=== PATIENT | male | born 1945 | race Caucasian/White ===

== ENCOUNTER 2018-12-07 06:05 | Inpatient (IN) ==
[~2018-12-07 06:05] MED LIST: ceFAZolin 1,000 MG, Sodium Chloride IRRigation 1,000 ML IR ONE
[2018-12-07] MEDS ORDERED: CeFAZolin Syr 2,000MG/20 ML 2,000 MG/20 ML SYRINGE IVPB ONE (06:26)
[2018-12-07] MEDS ORDERED: Ringers Solution, Lactated 1,000 ML IVC SCH ×2 (06:30→06:45)
[2018-12-07] MEDS ORDERED: *HR* Propofol 200 MG/20 ML VIAL IVP ONE ×2 (06:49→16:03)
[2018-12-07] MEDS ORDERED: *HR* FentaNYL (PF) 100 MCG/2 ML VIAL ONE (06:49)
[2018-12-07] MEDS ORDERED: Lidocaine -MPF 4% 5 ML AMPUL ONE (06:50)
[2018-12-07] MEDS ORDERED: EPINEPHrine 1 MG/ML VIAL ONE (06:50)
[2018-12-07] MEDS ORDERED: Dexamethasone 4 MG/ML VIAL ONE ×2 (06:50→14:29)
[2018-12-07] MEDS ORDERED: Ondansetron 4 MG/2 ML VIAL ONE ×2 (06:50→14:29)
[2018-12-07] MEDS ORDERED: Lidocaine -MPF 2% 2 ML VIAL ONE ×2 (06:50→07:06)
[2018-12-07] MEDS ORDERED: *HR* Succinylcholine 200 MG/10 ML VIAL IVP ONE (06:50)
[2018-12-07] MEDS ORDERED: *HR* Heparin 5,000 UNIT/ML VIAL ONE ×2 (06:50→10:48)
[2018-12-07] MEDS ORDERED: Heparin 1,000 UNITS/500 mL 500 ML ONE (07:03)
[2018-12-07] MEDS ORDERED: *HR* Phenylephrine 10 MG/ML VIAL ONE ×4 (07:04→14:05)
[2018-12-07] MEDS ORDERED: Acetaminophen IV 1,000 MG/100 ML INFUS..BTL IVPB ONE (07:07)
--- NOTE | 2018-12-07 07:07 | Anesthesia Evaluation PreOp ---
Date of Encounter: 12/07/18 Time of Encounter: 07:05 - Past History Planned Operation: Aortobifemoral bypass graft Cardiac History: HTN, Hyperlipidemia, Cardiac Surgery (CABG x 3 1999), Other (PAD) Pulmonary History: Smoker, Pack/yr (20) NATURAL DEVELOPER History: Denies Any Significant HX Other Medical History: Diabetes Type II Anesthesia History: No Prior Anesthetic Complications, Past Anesthesia (CABG x3) Medications and Allergies Allergy/AdvReac Type Severity Reaction Status Date / Time gabapentin AdvReac Abdominal Verified 12/07/18 06:26 Pain simvastatin AdvReac Abdominal Verified 12/07/18 06:26 Pain - Meds/Allergy Pre-op Review Medications Reviewed: Yes Allergies Reviewed: Yes Beta Blockers on Current Med List: No Anesthesia Results - Labs Laboratory Tests 12/02/18 12/02/18 12/02/18 13:07 13:07 13:07 WBC 4.8 Hgb 13.2 Hct 40.5 Plt Count 178 PT INR APTT Sodium 141 Potassium 3.8 Chloride 100 Carbon Dioxide 31 H BUN 14 Creatinine 0.80 Glucose 136 H Est Mean Plasma Glucose 166 Hemoglobin A1c 7.4 H 12/02/18 13:07 WBC Hgb Hct Plt Count PT 11.4 INR 1.0 APTT 29.5 Sodium Potassium Chloride Carbon Dioxide BUN Creatinine Glucose Est Mean Plasma Glucose Hemoglobin A1c - Imaging EKG: report reviewed ( Interpretive Statements SINUS RHYTHM WITH OCCASIONAL VENTRICULAR PREMATURE COMPLEXES LEFT VENTRICULAR HYPERTROPHY AND ST-T CHANGE Electronically Signed On 12-05-2018 18:10:55 EDT by Magdi Laurent) Anesthesia Exam O2 Sat Height 1.68 m Weight 63.957 kg O2 Sat by Pulse Oximetry 93 Vital Signs Temp Pulse Resp BP Pulse Ox 97.9 F 62 18 119/74 93 12/07/18 06:55 12/07/18 06:55 12/07/18 06:55 12/07/18 06:55 12/07/18 06:55 Weight: 63kg NPO (# of Hours): >8 - HEENT Pupil (Motor): Pupils equal, EOMI Mallampati: I Teeth: Edentulous Oral Opening: Greater than 3 - NATURAL DEVELOPER LOC: Oriented NATURAL DEVELOPER Motor: Normal RUE, Normal LUE, Normal RLE, Normal LLE, Normal Face NATURAL DEVELOPER Sensory: Normal: RUE, LUE, RLE, LLE, Face - Cardiac Rhythm: Regular - Pulmonary Breath Sounds: bilateral Clear Anesthesia Assess/Plan ASA Score: 3 Level of consciousness: Cooperative Anesthetic Plan: General Monitoring Plan: Standard Monitors, A-Line Recovery Plan: PACU
[2018-12-07] MEDS ORDERED: NiCARdipine 2.5 MG/10 ML Syringe IVPB ONE (07:11)
[2018-12-07] MEDS ORDERED: Albuterol 2.5 MG/3 ML NEBULIZER IH ONE (07:16)
[2018-12-07] MEDS ORDERED: *HR* Remifentanil 2 MG VIAL IVP ONE (07:17)
[2018-12-07] MEDS ORDERED: Heparin 1,000 UNITS/500 mL 1,000 ML ONE (07:20)
--- NOTE | 2018-12-07 07:29 | History & Physical Report ---
Date of Encounter: 12/07/18 Time of Encounter: 07:25 24 Hour HP Update - Instructions Instructions: If the History and Physical is less than 30 days old and was completed prior to A.M. admission and or procedure and has NOT been updated on calendar day of procedure please complete this update prior to performing procedure. - Update Patient reports changes in Medical Condition: No Changes in examination, assessment, or condition: No Changes in Medication: No Preop tests/diagnostics Reviewed: Yes Surgery Remains Indicated: Yes Consent for Planned Operative Procedure(s) Verified: Yes - Pre-Operative Checklist Preoperative Checklist Indicated: Yes Prophylactic Antibiotic Ordered: Yes Home Medications Include Beta Serge: No Beta Serge Taken Today (Day of Surgery): No Beta Serge Taken Yesterday (Day Prior to Surgery): No Is VTE Prophylaxis Indicated?: Yes
[2018-12-07] MEDS ORDERED: *HR* FentaNYL (PF) 100 MCG/2 ML VIAL IVP PRN (07:38)
[2018-12-07] MEDS ORDERED: *HR* Promethazine 25 MG/ML VIAL IVP PRN (07:38)
[2018-12-07] MEDS ORDERED: *HR* Meperidine 25 MG/ML SYRINGE IVP PRN (07:38)
[2018-12-07] MEDS ORDERED: Ondansetron 4 MG/2 ML VIAL IVP ONE (07:38)
[2018-12-07] MEDS ORDERED: *HR* Rocuronium Bromide 50 MG/5 ML VIAL ONE ×2 (09:58→12:24)
[2018-12-07 10:35] LABS: Basophils % 0.2 %; Eosinophils # 0.1 K/mcL (0.0-0.6); Eosinophils % 1.1 %; Hematocrit 38.2 % (37.5-50.1); Immature Granulocytes % 0.4 % (0-4); Lymphocytes # 1.4 K/mcL (0.6-4.6); Lymphocytes % 13.8 %; Mean Corpuscular Hemoglobin 31.1 pg (28.0-33.3); Mean Corpuscular Volume 91.4 fL (83.0-100.0); Mean Platelet Volume 9.8 fL (9.4-12.4); Monocytes # 0.4 K/mcL (0.0-1.3); Monocytes % 3.7 %; Neutrophils # 8.4 K/mcL (1.6-8.9); Platelet Count 178 K/mcL (140-400); Red Blood Count 4.18 M/mcL (4.19-5.50); Red Cell Distribution Width 11.5 % (11.5-14.5); Segmented Neutrophils % 80.8 %
[2018-12-07 10:38] LABS: White Blood Count 10.4 K/mcL (4.3-11.1)
[2018-12-07 10:56] LABS: BUN/Creatinine Ratio 18 (6-26); Blood Urea Nitrogen 14 mg/dL (8-23); Calcium 9.3 mg/dL (8.6-10.3); Carbon Dioxide 25 mEq/L (23-29); Chloride 102 mEq/L (98-107); Glucose 249 mg/dL (70-105); Osmolality,Calculated 295 (280-300); Potassium 3.8 mEq/L (3.5-5.1); Sodium 138 mEq/L (136-145); eGFR For African Americans > 60 (> 60); eGFR For Non-African Americans > 60 (> 60)
[2018-12-07] MEDS ORDERED: *HR* PHENYLEPHRINE 1,000 MCG/10 ML SYRINGE IVP ONE ×5 (11:56→16:22)
[2018-12-07] MEDS ORDERED: EPHEDrine 50 MG/ML VIAL ONE (12:18)
[2018-12-07] MEDS ORDERED: Esmolol 100 MG/10 ML VIAL IVP ONE (12:24)
[2018-12-07] MEDS ORDERED: *HR* Magnesium Sulfate 1 GM/2 ML VIAL ONE (12:30)
[2018-12-07] MEDS ORDERED: Calcium Gluconate 1,000 MG/10 ML VIAL ONE (12:31)
[2018-12-07] MEDS ORDERED: *HR* Vasopressin 20 UNIT/ML VIAL ONE (12:47)
[2018-12-07 14:03] LABS: ABG Base Excess -14 mEq/L (-2 to 3); ABG Chloride 108 mEq/L (98-107); ABG Glucose 468 mg/dL (60-95); ABG HCO3 14 mEq/L (21-27); ABG Ionized Calcium 1.21 mmol/L (1.15-1.35); ABG Oxygen Saturation 100 % (95-98); ABG PCO2 40 mmHg (35-45); ABG PH 7.16 pH Units (7.32-7.45); ABG PO2 270 mmHg (85-104); ABG TCO2 16 mEq/L (20-26)
[2018-12-07] MEDS ORDERED: Sodium Bicarbonate 50 MEQ/50 ML VIAL ONE ×2 (14:05→15:55)
[2018-12-07] MEDS ORDERED: Insulin Regular, Human 100 UNIT/ML ONE (14:45)
[2018-12-07] MEDS ORDERED: 0.9 % Sodium Chloride Mini Bag 100 ML ONE (14:49)
[2018-12-07] MEDS ORDERED: *HR* HYDROMORPHONE 2 MG/ML VIAL ONE ×2 (15:07→15:41)
[2018-12-07 15:37] LABS: ABG Base Excess -13 mEq/L (-2 to 3); ABG Chloride 109 mEq/L (98-107); ABG Glucose 308 mg/dL (60-95); ABG HCO3 16 mEq/L (21-27); ABG Oxygen Saturation 100 % (95-98); ABG PCO2 42 mmHg (35-45); ABG PH 7.18 pH Units (7.32-7.45); ABG PO2 241 mmHg (85-104); ABG TCO2 17 mEq/L (20-26)
--- NOTE | 2018-12-07 15:56 | Operative Note ---
Date of procedure: 12/07/18 Pre-op diagnosis: AAA/Bilat Com Iliac Aneurysms/Bilat Ext Iliac/ONLINE JOURNALIST/PFA/SFA occlusive disease Post-op diagnosis: same Procedure: repair of AAA and bilat iliac aneurysms with aorto-biprofunda bypass with 12 x 6 mm graft bilat ONLINE JOURNALIST and PFA endarterectomy Repair internal hernia Complications: 0 Anesthesia: GETA Surgeon: Severo Winston Co-Surgeon: Dejon Perez Was there an legal assistant present: No Estimated blood loss (cc): 1,500 (1800 ml returned via cell saver, 2 units PRBC's given in OR) Specimen: 0 Condition: stable Disposition: ICU Procedure in Detail: History Pranay Olguin is a 73-year-old white male who had been seen in the outpatient vascular surgery clinic for bilateral lower extremity pain on referral from the [place]. The patient states that he's been having symptoms for at least 2 years though his states this is been going on longer than that. He states that he is only able to walk a distance of about 50 feet and needs to stop because of bilateral lower extremity pain. Noninvasive testing revealed an ankle-brachial index of approximately 0.[address] angiogram was performed which demonstrated an abdominal aortic aneurysm and bilateral common iliac artery aneurysms. The patient has severe and diffuse occlusive disease affecting the external iliac, common femoral, profunda femoris, and superficial femoral arteries bilaterally. The patient is aware that the amount of disease present will require more than one operation in order to revascularize but that the initial operation needs to focus on his inflow. He now comes for that operation. Procedure After informed consent was obtained the patient was taken to the operating room. An arterial line was placed. Patient was then intubated and general endotracheal anesthesia was established. The abdomen groin and upper thighs were sterilely prepped and draped. Nasogastric tube was placed. A timeout protocol was observed. A 2 team surgical approach was utilized for this patient. This was done because of the patient's comorbid conditions that include hypertension and ischemic heart disease. This was also done in order to facilitate complex intraoperative decision-making as well as complex intraoperative technical maneuvers and to expedite his operative care and minimize surgical and anesthetic time. The groin incisions were made first and these were placed in a vertical orientation because of the known need for endarterectomy. Because of his superficial femoral artery disease and anticipation that he will require future bilateral femoral-popliteal bypass grafts the endarterectomy today we'll focus on his common femoral and profunda femoris arteries so that the patient would have some form of improved runoff to the lower extremities. An extensive dissection was then undertaken of both profunda femoris arteries so that they could be widely exposed and controlled distally. The vessels were found to be particularly calcific and rigid. There is no palpable pulse present though the arteries were seen to vibrate corresponding to the cardiac cycle. After appropriate control was obtained a tunnel was created retrograde into the retroperitoneal space. The incisions were then packed with antibiotic-soaked gauze. Attention was then directed to the abdomen. A vertical midline incision was used. This was dissected down to and through the fascia. The peritoneal membrane was identified and opened gently. Patient was found to have a somewhat distended sigmoid colon. On further inspection it was found that the patient actually had an internal hernia. There is large portion of the jejunum appeared to be rotated and displaced into the left upper quadrant and posterior to the inferior mesenteric vein. This area was then dissected and the internal hernia was released and reduced. The bowel was intact and no signs of bowel injury or bowel ischemia. The arteries were markedly calcified and rigid. Dissection was then conducted after the bowel was reflected into the right hemiabdomen. The ret roperitoneum was opened. Dissection was carried from the renal arteries and left renal vein distally to the iliac bifurcation. Selective control was then obtained of the internal and external iliac arteries bilaterally. The abdominal aortic aneurysm and bilateral common iliac artery aneurysms were identified. The right common iliac artery aneurysm is larger than the left. The iliac vessels were diffusely affected by atherosclerosis with a dense calcifications and rigidity. 5000 units of heparin were then administered intravenously. After 3 minute delay the vessels were clamped with the external and internal iliac arteries clamped first. Then the cross-clamp was placed immediately below the renal arteries. A longitudinal arteriotomy was then made on the aorta. Dense calcifications were present here as well as chronic thrombus in the aneurysms. These were removed. The proximal part of the aorta was then carefully inspected and a back bleeding lumbar was suture ligated. The orifice of the distal aorta was then carefully endarterectomized. The clamp was briefly removed in order to flush and remove any residual debris. With this done a 12 x 6 mm graft was selected. The proximal anastomosis was then performed using 3-0 Prolene suture. After cross clamping the graft distally the proximal anastomosis was then inspected for hemostasis. With this assured the graft limbs were then passed through the previously created tunnels into the groin. It should be noted that the common iliac arteries were opened and the plaque removed so that the graft could pass directly through the aneurysm sac. A longitudinal arteriotomy was then made on the mid to distal portion of the bilateral common iliac artery with extension of the arteriotomy onto the profunda femoris artery for a distance of greater than 3 cm to the area of the primary bifurcation of the profunda. The plaque encountered here was extraordinarily dense. This required a formal endarterectomy of both the common femoral and the profunda femoris artery area with this done and appropriate lumen could then be identified. A small amount of backbleeding was noted from the distal profunda bilaterally. There was no retrograde bleeding from the superficial femoral artery. There was a small amount only of bleeding antegrade through the common femoral artery. The distal anastomoses were then created in an end to side fashion and sewn onto the distal common femoral artery and formally onto the profundus so that the bypass graft was an aorto bi-profunda bypass graft. After appropriate backbleeding and flushing the grafts were open. First to the left leg and then to the right leg. The patient did demonstrate some hemodynamic changes with opening the first leg and so therefore the second leg opening was delayed until appropriate resuscitation was achieved. After this was done both grafts limbs were opened. There was an excellent pulse through the graft and Doppler signals were identified into the profunda femoris artery. The wounds were then irrigated and hemostasis achieved. Attention was then directed back to the abdomen. The abdomen was irrigated with warm antibiotic solution. The retroperitoneum was inspected for any residual bleeding. The aneurysm sac was then closed around the synthetic graft. This was also closed over the right limb of the graft. On the left side the retroperitoneum had been opened in a separate distal location in order to secure the distal ligation. It should be noted that the distal aspect of the common iliac artery was divided and endarterectomized bilaterally. It was then oversewn so that there would be no retrograde bleeding into the iliac aneurysms and so therefore the bilateral common iliac artery aneurysms were defunctionalized. The retroperitoneum was then reapproximated both in the left pelvis and in the midportion of the abdomen. The fascia was closed with looped PDS suture. The deep subcutaneous tissue was closed with a running 3-0 Vicryl and the skin edges were approximated with 4-0 Vicryl. The groin incisions were irrigated and they were inspected for hemostasis. Marcaine was infiltrated into the wound edges. The wounds were then closed in layers using absorbable suture. Dry sterile dressing was then applied to all the incisions. The patient demonstrated metabolic acidosis on intraoperative blood gases and so the patient was judged to not be ready for extubation at this time. Therefore the patient will be taken to the intensive care unit intubated and will have further resuscitation and extubation later. The patient had approximately 3000 mL of fluid collected with the Cell Saver device. 1800 mL were returned to the patient. Also 2 units of banked red blood cells were administered intraoperatively. There were no intraoperative complications. The patient tolerated the procedure well. The sponge count and needle counts were correct.
[2018-12-07] MEDS ORDERED: *HR* Midazolam HCl 5 MG/5 ML VIAL IVP ONE (16:02)
[2018-12-07 16:17] LABS: ABG Base Excess -8 mEq/L (-2 to 3); ABG Chloride 105 mEq/L (98-107); ABG Glucose 256 mg/dL (60-95); ABG HCO3 22 mEq/L (21-27); ABG Ionized Calcium 1.23 mmol/L (1.15-1.35); ABG Oxygen Saturation 100 % (95-98); ABG PCO2 66 mmHg (35-45); ABG PH 7.13 pH Units (7.32-7.45); ABG PO2 433 mmHg (85-104); ABG TCO2 24 mEq/L (20-26)
[2018-12-07] MEDS ORDERED: Artificial Tears SOLN 15 ML BOTTLE BOTH EYES PRN (16:55)
[2018-12-07] MEDS ORDERED: Naloxone 0.4 MG/ML INJ IVP PRN (16:56)
[2018-12-07] MEDS ORDERED: Ondansetron 4 MG/2 ML VIAL IVP PRN (16:56)
[2018-12-07] MEDS ORDERED: D5% in Water 1,000 ML IVC PRN (17:00)
[2018-12-07] MEDS ORDERED: Dextrose Gel 15 GM/37.5 ML TUBE PO PRN ×2 (17:00)
[2018-12-07] MEDS ORDERED: *HR* Dextrose 50 % in Water (Syg) 50 ML SYRINGE IVP PRN (17:00)
[2018-12-07] MEDS ORDERED: FentaNYL (PF) 1,000 MCG in 0.9 % Sodium Chloride 80 ML IVC SCH (17:00)
--- NOTE | 2018-12-07 17:02 | Pulmonology Consult Note ---
<Meli Dupree R - Last Filed: 12/07/18 18:26> Date of Encounter: 12/07/18 Time of Encounter: 17:01 Assessment and Plan (1) Metabolic acidosis Current Visit: Yes Status: Acute Pt became acidotic during surgery likely secondary to poor perfusion 2 units PRBCs, 6.5L LR, and 3 amps of bicarb have been given Most recent ABG demonstrates acidosis at 7.13, pCO2 66, pO2 433 and HCO3 of 22 Lactate >10 Pt to remain intubated following surgery until acidosis corrects Will start the patient on a bicarb drip at 150mls/hr after the 7th liter of LR is finished transfusing Pt hemodynamically stable at this point Continue to closely monitor Repeat ABG at 1730 - 7.27, 46, 111, 21 with base excess correcting to -6 (2) S/P aortobifemoral bypass surgery Current Visit: Yes Status: Acute Performed by Dr. Winston Reported pt lost estimated 3L of blood and is overall volume depleted Given 6.5L of LR throughout surgery Transfused 2 units PRBCs Continue to monitor for signs of hemodilution and blood loss anemia CXR s/p surgery shows ETT and NG tube in correct places without acute abnormalities of the cardiopulmonary system (3) Diabetes mellitus Current Visit: Yes Status: Acute Pt normally takes metformin at home Pt hyperglycemic during surgery requiring 16U of insulin Q6H Accu-cheks with low dose SSI Qualifiers: Diabetes mellitus type: type 2 Diabetes mellitus terminologist insulin use: without halfway use Diabetes mellitus complication status: with other specified complication Qualified Code(s): E11.69 - Type 2 diabetes mellitus with other specified complication (4) HTN (hypertension) Current Visit: Yes Status: Acute Pt normotensive s/p surgery Continue to monitor and treat as needed Qualifiers: Hypertension type: essential hypertension Qualified Code(s): I10 - Essential (primary) hypertension (5) Hypokalemia Current Visit: Yes Status: Acute Pt most recent potassium 3.2 Likely secondary to volume depletion Replete as needed and continue to monitor (6) DVT prophylaxis Current Visit: Yes Status: Acute EPCDs History of Present Illness Consult date: 12/07/18 Requesting physician: Severo Winston Reason for consult: other (vent management) History of present illness: 73 yo male with PMHx of CAD with CABG in 1999, DM, PAD, HTN, HLD presents to the ICU after an aortobifemoral bypass graft performed by Dr. Winston. During the surgery the patient was stated to have lost approximately 3L of blood, he has been transfused 6.5 L of lactated Ringer's, 2 units of packed red blood cells, and 3 amps of bicarbonate. The patient remained acidotic after surgery and the decision was made to keep him intubated until his acidosis corrects. There were no significant complications from the surgery other than the expected blood loss. Patient's most recent blood gas demonstrated a pH of 7.13, CO2 66, PO2 of 433 and bicarbonate of 22 with a base excess of 8. Patient's blood sugars did increase during surgery up to 468 but a total of 6 units of insulin were given and his most recent blood glucose was 256. Patient is hemodynamically stable at this time with blood pressures 130/77, heart rate sinus rhythm, respirations 12/m with a tidal volume of 500. He did continue to make urine throughout the surgery producing approximately 350 mL throughout the duration of the surgery. The patient is full code. Dr. Winston has consulted the pulmonology team for further management of the patient's acidosis and his ventilator management. Past Med Surg Social Fam HX - Past Medical History Source: old records reviewed Medical history: diabetes, hyperlipidemia, hypertension Additional medical history: CVD. ischemic heart disease Psychiatric history: no psych history - Past Surgical History Surgical History: coronary bypass (CABG) - Social History Smoking Status: Former smoker Smokeless Tobacco Status: No Alcohol use: none Drug use: none Medications and Allergies Amlodipine Besylate 2.5 mg PO QAM 12/07/18 [History] Ascorbic Acid [Vitamin C] 500 mg PO QAM 12/07/18 [History] Cranberry Conc/C/Bacill Coag [Azo Cranberry Tablet] 1 tab PO QAM 12/07/18 [History] Docusate Sodium [Dulcolax Stool Softener] 100 mg PO BID 12/07/18 [History] Ferrous Sulfate [Iron] 325 mg PO TID 12/07/18 [History] Lactobacillus Combination No.8 [Adult Probiotic] 1 cap PO DAILY 12/07/18 [History] Lisinopril [Zestril] 20 mg PO QAM 12/07/18 [History] Lovastatin 80 mg PO QPM 12/07/18 [History] Metformin HCl [Glucophage] 1,000 mg PO BID 12/07/18 [History] Methocarbamol [Robaxin] 500 mg PO TID PRN 12/07/18 [History] Morphine Sulfate Immed Rel [Morphine Sulfate] 15 mg PO TID PRN 12/07/18 [History] Vitamin B Complex [Balanced B-50] 1 tab PO QAM 12/07/18 [History] hydroCHLOROthiazide [Hydrochlorothiazide] 12.5 mg PO QAM 12/07/18 [History] Allergy/AdvReac Type Severity Reaction Status Date / Time gabapentin AdvReac Abdominal Verified 12/07/18 06:26 Pain simvastatin AdvReac Abdominal Verified 12/07/18 06:26 Pain ROS unobtainable: due to endotracheal tube All Systems: The remainder of the systems were reviewed and are negative Physical Examination General appearance: no acute distress, asleep Eyes: nonicteric ENT: other (Intubated) Effort: normal Auscultation: bilateral: clear Cardiovascular: regular rate and rhythm Gastrointestinal: soft, non-tender, non-distended Integumentary: normal Extremities: no edema, pink and warm pupils equal and round Results - Laboratory Findings CBC and BMP: 12/07/18 17:15 12/07/18 17:15 ABG ABG pH 7.13 pH Units (7.32-7.45) L* 12/07/18 16:10 ABG pCO2 66 mmHg (35-45) H D 12/07/18 16:10 ABG pO2 433 mmHg (85-104) H D 12/07/18 16:10 ABG O2 Saturation 100 % (95-98) H 12/07/18 16:10 Abnormal lab findings: Abnormal lab results RBC 4.18 M/mcL (4.19-5.50) L 12/07/18 10:17 ABG pH 7.13 pH Units (7.32-7.45) L* 12/07/18 16:10 ABG pCO2 66 mmHg (35-45) H D 12/07/18 16:10 ABG pO2 433 mmHg (85-104) H D 12/07/18 16:10 ABG HCO3 16 mEq/L (21-27) L 12/07/18 15:28 ABG Total CO2 17 mEq/L (20-26) L 12/07/18 15:28 ABG O2 Saturation 100 % (95-98) H 12/07/18 16:10 ABG Base Excess -8 mEq/L (-2 to 3) L 12/07/18 16:10 ABG Hematocrit 31.0 % (37.5-50.1) L 12/07/18 16:10 ABG Chloride 109 mEq/L (98-107) H 12/07/18 15:28 Potassium 3.2 mEq/L (3.5-5.3) L 12/07/18 16:10 Glucose 256 mg/dL (60-95) H 12/07/18 16:10 Glucose 249 mg/dL (70-105) H 12/07/18 10:17 POC Glucose 135 mg/dL (70-99) H 12/07/18 06:54 Arterial Blood Ionized Calcium 1.10 mmol/L (1.15-1.35) L 12/07/18 15:28 Crossmatch See Detail 12/07/18 08:42 - Clinical Findings Intake & Output: Intake & Output 12/07/18 12/07/18 12/07/18 07:59 15:59 23:59 Intake Total Output Total 1850 / 1850 Balance 20 / -1830 -1850 / -1830 Weight 63.957 kg Consult Discharge Plan - Plan Referrals: [place],PCP [Primary Care Provider] - 12/17/18 10:00 am Severo Winston MD [Partnered Physician] - 12/29/18 9:45 am <Kiera Frank - Last Filed: 12/10/18 06:30> Date of Encounter: 12/07/18 All Systems: The remainder of the systems were reviewed and are negative Results - Laboratory Findings CBC and BMP: 12/09/18 22:55 12/10/18 04:15 ABG ABG pH 7.13 pH Units (7.32-7.45) L* 12/07/18 16:10 ABG pCO2 66 mmHg (35-45) H D 12/07/18 16:10 ABG pO2 433 mmHg (85-104) H D 12/07/18 16:10 ABG O2 Saturation 100 % (95-98) H 12/07/18 16:10 Abnormal lab findings: Abnormal lab results RBC 4.18 M/mcL (4.19-5.50) L 12/07/18 10:17 ABG pH 7.13 pH Units (7.32-7.45) L* 12/07/18 16:10 ABG pCO2 66 mmHg (35-45) H D 12/07/18 16:10 ABG pO2 433 mmHg (85-104) H D 12/07/18 16:10 ABG HCO3 16 mEq/L (21-27) L 12/07/18 15:28 ABG Total CO2 17 mEq/L (20-26) L 12/07/18 15:28 ABG O2 Saturation 100 % (95-98) H 12/07/18 16:10 ABG Base Excess -8 mEq/L (-2 to 3) L 12/07/18 16:10 ABG Hematocrit 31.0 % (37.5-50.1) L 12/07/18 16:10 ABG Chloride 109 mEq/L (98-107) H 12/07/18 15:28 Potassium 3.2 mEq/L (3.5-5.3) L 12/07/18 16:10 Glucose 256 mg/dL (60-95) H 12/07/18 16:10 Glucose 249 mg/dL (70-105) H 12/07/18 10:17 POC Glucose 135 mg/dL (70-99) H 12/07/18 06:54 Arterial Blood Ionized Calcium 1.10 mmol/L (1.15-1.35) L 12/07/18 15:28 Crossmatch See Detail 12/07/18 08:42 - Clinical Findings Intake & Output: Intake & Output 12/07/18 12/07/18 12/07/18 07:59 15:59 23:59 Intake Total Output Total 1849 / 1850 Balance -185 / Weight 63.957 kg - Attending Attestation I examined this patient and my medical decision-making was reviewed with the Resident Physician. I agree with the documented findings, disposition and treatment plan as described except to the extent set forth below. Patient seen and examined. I was called by the vascular surgeon regarding this patient and to be admitted to the ICU after his surgery. Patient was seen in the ICU when he arrived from that operating chrome and the case was discussed with the anesthesiologist. Labs, radiology, chart personally reviewed. Agree with resident's history and physical, assessment, plan with following comments: MIG WELDER: Patient does not follows commands, this is most likely from anesthesia and I do not expect there would be any issues neurologically. Pulmonary: Acceptable oxygenation and ventilation. I have reviewed his ABG and I have asked respiratory therapist to repeat his ABG especially with his metabolic acidosis and checking his vent setting seems to be appropriate. There is no plan for extubation for his acute respiratory failure postoperatively until his acidosis is corrected as well as he is receiving fluid for resuscit ation and needs to be more hemodynamically stable before extubation. Cardiovascular: stable. Status post surgery for his vascular disease and he seems to be hemodynamically stable. GI: Nutrition per dietary and GI prophylaxis per routine Heme: DVT prophylaxis per routine. Patient has received packed RBC and to continue monitoring his H&H. ID: According to postoperative protocol. Renal; urine out put and renal function reviewed. Patient has received IV fluid and will start him on bicarbonate drip hopefully that will improve his acid base disorder. His metabolic acidosis and likely related to infection and could be from hypoperfusion and hopefully with fluid resuscitation and he had packed RBC transfusion that might help. Endorcine: blood glucose is monitored Lines: all lines checked and no evidence of infections Skin: skin care to prevent pressure ulcers per nursing routine care Dispo: ICU Code: Full. Prognosis. Guarded to fair I spent 45 min of Critical Care time with this patient. It involved decision making of high complexity to assess, manipulate, and support vital organ system failure and/or to prevent further life threatening deterioration of the patient's condition. The time involved in the performance of separately reportable procedures was not counted toward critical care time.
[2018-12-07 17:30] LABS: Basophils % 0.2 %; Eosinophils % 0.1 %; Hematocrit 47.5 % (37.5-50.1); Immature Granulocytes % 1.4 % (0-4); Lymphocytes # 1.2 K/mcL (0.6-4.6); Lymphocytes % 7.3 %; Mean Corpuscular HGB Conc 31.8 g/dL (31.6-35.5); Mean Corpuscular Hemoglobin 31.2 pg (28.0-33.3); Mean Platelet Volume 10.3 fL (9.4-12.4); Monocytes # 1.5 K/mcL (0.0-1.3); Monocytes % 9.1 %; Neutrophils # 13.2 K/mcL (1.6-8.9); Platelet Count 134 K/mcL (140-400); Red Blood Count 4.84 M/mcL (4.19-5.50); Red Cell Distribution Width 12.4 % (11.5-14.5); Segmented Neutrophils % 81.9 %
[2018-12-07 17:39] LABS: INR 1.3; Prothrombin Time 15.2 Seconds (9.4-12.1)
[2018-12-07 17:41] LABS: Activated Partial Thrombo Time 29.6 Seconds (26.0-36.0)
[2018-12-07 17:49] LABS: BUN/Creatinine Ratio 14 (6-26); Blood Urea Nitrogen 16 mg/dL (8-23); Calcium 8.3 mg/dL (8.6-10.3); Carbon Dioxide 18 mEq/L (23-29); Chloride 108 mEq/L (98-107); Glucose 253 mg/dL (70-105); Osmolality,Calculated 308 (280-300); Potassium 3.8 mEq/L (3.5-5.1); Sodium 144 mEq/L (136-145); eGFR For African Americans > 60 (> 60); eGFR For Non-African Americans > 60 (> 60)
[2018-12-07 17:49] LABS: ABG Base Excess -6 mEq/L (-2 to 3); ABG HCO3 21 mEq/L (21-27); ABG Oxygen Saturation 98 % (95-98); ABG PCO2 46 mmHg (35-45); ABG PH 7.27 pH Units (7.32-7.45); ABG PO2 111 mmHg (85-104); ABG TCO2 22 mEq/L (20-26); Blood Gas Modality ASSIST CONTROL; Blood Gas PEEP 5 cm H2O; Blood Gas VT 500 cc
[2018-12-07 18:06] LABS: Hemoglobin 15.1 g/dL (12.9-16.9); Mean Corpuscular Volume 98.1 fL (83.0-100.0); White Blood Count 16.1 K/mcL (4.3-11.1)
[2018-12-07] MEDS: Famotidine 20 MG/2 ML VIAL IVP SCH (18:31)
[2018-12-07] MEDS: Insulin LISPRO 300 UNITS/3 ML VIAL SQ SCH (18:35)
[2018-12-07] MEDS: Chlorhexidine Rinse 15 ML MOUTHWASH MM SCH (19:47)
[2018-12-07] MEDS: Sodium Bicarbonate 150 MEQ in D5% in Water 1,000 ML IVC SCH (19:47)
[2018-12-07] MEDS: Artificial Tears SOLN 15 ML BOTTLE BOTH EYES SCH (19:47)
[2018-12-07 20:50] LABS: ABG Base Excess 0 mEq/L (-2 to 3); ABG HCO3 26 mEq/L (21-27); ABG Oxygen Saturation 99 % (95-98); ABG PCO2 48 mmHg (35-45); ABG PH 7.34 pH Units (7.32-7.45); ABG PO2 131 mmHg (85-104); ABG TCO2 28 mEq/L (20-26); Blood Gas Modality AF; Blood Gas PEEP 5 cm H2O; Blood Gas VT 500 cc
[2018-12-07] MEDS: 0.9 % Sodium Chloride 1,000 ML IVC SCH (21:24)
[2018-12-08] MEDS: Insulin LISPRO 300 UNITS/3 ML VIAL SQ SCH ×4 (00:12→18:13)
[2018-12-08] MEDS: Artificial Tears SOLN 15 ML BOTTLE BOTH EYES SCH ×4 (00:12→12:25)
[2018-12-08 04:47] LABS: ABG Base Excess 1 mEq/L (-2 to 3); ABG HCO3 26 mEq/L (21-27); ABG Oxygen Saturation 97 % (95-98); ABG PCO2 43 mmHg (35-45); ABG PH 7.39 pH Units (7.32-7.45); ABG PO2 92 mmHg (85-104); ABG TCO2 27 mEq/L (20-26); Blood Gas Modality AF; Blood Gas PEEP 5 cm H2O; Blood Gas VT 500 cc
[2018-12-08] MEDS: Famotidine 20 MG/2 ML VIAL IVP SCH ×2 (05:38→18:12)
--- NOTE | 2018-12-08 05:47 | Operative Note ---
Date of procedure: 12/07/18 Pre-op diagnosis: Peripheral vascular disease with disabling claudication Post-op diagnosis: same Procedure: 1. Aorto-bifemoral artery bypass graft with 12 x 6 mm Hemashield Dacron graft. 2. Right common femoral and deep femoral artery endarterectomy. 3. Left common femoral and deep femoral artery endarterectomy. 4. Lysis of adhesions with repair of internal hernia. Complications: None Anesthesia: GETA Surgeon: Dejon Perez Co-Surgeon: Severo Winston Was there an office services assistant present: No Estimated blood loss (cc): 1,500 (1800 returned via cellsaver) Specimen: None Condition: stable Disposition: ICU Procedure in Detail: Indications: The patient is a 73 year old male with hypertension, hyperlipidemia, diabetes and tobacco abuse. He was found to have severe disabling claudication due to severe aortic disease and bilateral iliac artery occlusions. He also has an aortic aneursym and bilateral common iliac artery aneurysms. Procedure: The patient was identified in the preoperative area. The risks, benefits, and alternatives of the procedure were discussed. All questions were answered. The patient was taken to the operating room and placed in supine position on the operating room table. After the induction of general endotracheal anesthesia, he was cleaned and draped in normal sterile fashion. A two surgeon approach was utilized for this procedure in order to minimize anesthetic time and the risks for complications due to the patients comorbid conditions. In addition, a two surgeon approach was used for intraoperative decision making due to the complexity of the case. A longitudinal incision was made over the right groin sharply. Hemostasis was obtained with electrocautery. Through a process of blunt, sharp, and electrocautery dissection, the right femoral vessels were dissected circumferentially and surrounded with vessel loops. A longitudinal incision was then made over the left groin sharply. Hemostasis was obtained with electrocautery. Through a process of blunt, sharp, and electrocautery dissection, the left femoral vessels were dissected circumferentially and surrounded with vessel loops. A midline incision was made sharply. Hemaostasis was obtained via electrocautery. Through a process of blunt, sharp and electrocautery dissection, the subcutaneous tissue, fascia and peritoneum were traversed. An exporation of the peritoneum revealed no acute pathology. However, a large, internal hernia with multple adhesions was identified. Extensive lysis of adhesions was required to mobilize the small bowel and sigmoid colon in order to return the structures to their normal anatomic position. The aorta was palpated in the retroperitoneum. The retroperitoneum was opened with blunt, sharp and electrocautery dissection. The aorta was dissected along the anterior, medial and lateral surfaces to below the renal arteries. The dissection was extended down to the aortic bifurcation. The right iliac bifuraction was exposed along with the proximal internal and external iliac arteries. The left iliac bifurcation was exposed lateral to the colon by traversing the peritoneal reflection. The proximal left external and internal iliac arteries were also dissected. A clamp was used to tunnel through the retroperitoneum to each femoral vessel. The patient received 5000 units of intravenous heparin and additional heparin throughout the case to maintain anticoagulation. A 12 x 6mm dacron bifurcated graft was cut to appropriate length. The infrarenal aorta was clamped proximally and the bilateral internal and external iliac arteries were near their origins. A longitudinal incision was made into the aorta between the clamps. Significant plaque and thrombus was removed from the aorta and proximal iliac arteries. The aorta was flushed by releasing the proximal clamp. The aorta was clamped again and the lumen was infused with heparinized saline. The graft was cut to fit the aneurysm neck in an end to end fashion. The graft was then sutured in place with a running 3-0 prolene. After completing the anastamosis, the graft limbs were clamped and the aorta was reopened. Fibrillar was used to aid in hemostasis. A lumbar vein was suture ligated at the aortic bifurcation. The bilateral disal common iliac arteries were transected distally and overswen with 4-o Prolene. The graft limbs were tunneled along the iliac arteries to the femoral vessels. The bilateral femoral vessels were occluded and longitudinal arteriotomies were made in the distal common femoral arteries. The arteriotomies were extended severeal centimenters onto the heavily calcified deep femoral arteries. Using a dental freer, extensive endarterectomy was performed on the bilateral common and deep superficial femoral arteries. The deep femoral artery endarterectomies were several centimeters in length. The endpoints were inspected and no elevated flaps were noted. The lumens were flushed with heparinized saline. The graft limbs were cut to fit the long bilateral femoral endarterectomies. The grafts were then sutured in place with a running 6-0 Prolene. Prior to completing the anastamoses, the femoral vessels were flushed through the graft anastamoses and heparin was infused into the lumen. The anastamoses were completed and flow was restored in the left lower extremity first. After assuring appropriate hemodynamic stability, flow was restored to the right lower extremity. Fibrillar was used to aid in hemostasis. Polyphasic signals were noted distal to the anastamoses. The wounds were irrigated with antibiotic-containing saline. Meticulous hemostasis was obtained throughout the wounds with electrocautery. The femoral wounds were reapproximated with layers of 2-0 and 3-0 Vicryl. Skin was reapproximated with 4-0 Vicryl. The abdomen and pelvis were irrigated with warm antibiotic containing saline. Meticulous hemostasis was obtained throughout the retroperitoneum with electrocautery. The aneurysm was reapproximated over the graft. The retroperitoneum was reapproximated with 2-0 Vicryl along the midline and in the left pelvis The abdominal contents were returned to their normal anatomic position The fascia was reapproximated with looped PDS suture. The subcutaneous tissue was reapproximated with 2-0 Vicryl. Platelet rich and platelet poor plasma were infused into the wound. Skin was reapproximated with 4-0 Vicryl. Sterile dressings were applied. The patient was taken to the intensive care unit intubated.
--- NOTE | 2018-12-08 06:47 | Pulmonology Progress Note ---
<Meli Dupree - Last Filed: 12/08/18 16:16> Date of Encounter: 12/08/18 Time of Encounter: 06:47 Assessment and Plan (1) Metabolic acidosis Current Visit: Yes Status: Acute Pt became acidotic during surgery likely secondary to poor perfusion 2 units PRBCs, 6.5L LR, and 3 amps of bicarb have been given Most recent ABG demonstrates acidosis at 7.13, pCO2 66, pO2 433 and HCO3 of 22 Initial lactate >10, has decreased to 5.7 Pt to remain intubated following surgery until acidosis corrects Will start the patient on a bicarb drip at 150mls/hr after the 7th liter of LR is finished transfusing Pt hemodynamically stable at this point Continue to closely monitor Repeat ABG at 1730 on day of surgery - 7.27, 46, 111, 21 with base excess co rrecting to -6 ABG this am shows resolution of metabolic acidosis Extubation this morning was successful Dr. Winston is agreeable with transfer of the patient to as he remained stable throughout the morning (2) S/P aortobifemoral bypass surgery Current Visit: Yes Status: Acute Performed by Dr. Winston Reported pt lost estimated 3L of blood and is overall volume depleted Given 6.5L of LR throughout surgery Transfused 2 units PRBCs in the OR Continue to monitor for signs of hemodilution and blood loss anemia CXR s/p surgery shows ETT and NG tube in correct places without acute abnormalities of the cardiopulmonary system (3) Diabetes mellitus Current Visit: Yes Status: Chronic Pt normally takes metformin at home Pt hyperglycemic during surgery requiring 16U of insulin Q6H Accu-cheks with low dose SSI Qualifiers: Diabetes mellitus type: type 2 Diabetes mellitus ocean transportation intermediary insulin use: without ocean transportation intermediary use Diabetes mellitus complication status: with other specified complication Qualified Code(s): E11.69 - Type 2 diabetes mellitus with other specified complication (4) HTN (hypertension) Current Visit: Yes Status: Chronic Pt normotensive s/p surgery Continue to monitor and treat as needed Qualifiers: Hypertension type: essential hypertension Qualified Code(s): I10 - Essential (primary) hypertension (5) Hypokalemia Current Visit: Yes Status: Acute Potassium 3.2 post surgery Resolved at 4.1 Likely secondary to volume depletion Replete as needed and continue to monitor (6) Hypocalcemia Current Visit: Yes Status: Acute Ca 8 this am Will replenish and continue to monitor (7) Hypomagnesemia Current Visit: Yes Status: Acute Magnesium 1.4 this am Will replenish and continue to monitor (8) DVT prophylaxis Current Visit: Yes Status: Acute EPCDs Subjective Interval history: Pts acidosis corrected overnight. His CXR shows signs of pulmonary edema likely secondary to the large volumes of fluids transfused during and after surgery yesterday. Pt was extubated today and will diurese with lasix. Dr. Winston is agreeable with transfer of the patient to as he has remained stable all morning. Message was sent to the admitting hospitalist who was informed of the patient's transfer. Objective PUL Vital signs: Last Vital Signs Temp 97.5 F L 12/08/18 04:54 Pulse 105 12/08/18 06:00 Resp 17 12/08/18 06:06 BP 126/57 12/08/18 06:06 Pulse Ox 99 12/08/18 06:06 General appearance: other (sedated but wakens to voice and follows commands appropriately) Eyes: nonicteric Effort: normal Auscultation: bilateral: rales (mild, heard in bilateral lung bases) Cardiovascular: regular rate and rhythm Gastrointestinal: soft, non-tender Extremities: no edema, pink and warm pupils equal and round Ventilator Settings Ventilator Settings: Ventilator Settings, Last 8 Hours Ventilator Tidal Volume 500 Setting Ventilator Tidal Volume 500 Setting Ventilator Tidal Volume 500 Setting Ventilator Tidal Volume 500 Setting Ventilator Tidal Volume 500 Setting Ventilator Tidal Volume 500 Setting Ventilator Tidal Volume 500 Setting Ventilator Tidal Volume 500 Setting Ventilator Tidal Volume 500 Setting Ventilator Tidal Volume 500 Setting Ventilator Tidal Volume 500 Setting Ventilator Tidal Volume 500 Setting Ventilator Respiratory Rate 12 Setting Ventilator Respiratory Rate 12 Setting Ventilator Respiratory Rate 12 Setting Ventilator Respiratory Rate 12 Setting Ventilator Respiratory Rate 12 Setting Ventilator Respiratory Rate 12 Setting Ventilator Respiratory Rate 12 Setting Ventilator Respiratory Rate 12 Setting Ventilator Respiratory Rate 12 Setting Ventilator Respiratory Rate 12 Setting Ventilator Respiratory Rate 12 Setting Ventilator Respiratory Rate 12 Setting Actual Respiratory Rate 17 Actual Respiratory Rate 15 Actual Respiratory Rate 15 Actual Respiratory Rate 14 Actual Respiratory Rate 14 Actual Respiratory Rate 13 Actual Respiratory Rate 15 Actual Respiratory Rate 114 Actual Respiratory Rate 14 Actual Respiratory Rate 13 Actual Respiratory Rate 12 Actual Respiratory Rate 17 Positive End Expiratory 5 Pressure Positive End Expiratory 5 Pressure Positive End Expiratory 5 Pressure Positive End Expiratory 5 Pressure Positive End Expiratory 5 Pressure Positive End Expiratory 5 Pressure Positive End Expiratory 5 Pressure Positive End Expiratory 5 Pressure Positive End Expiratory 5 Pressure Positive End Expiratory 5 Pressure Positive End Expiratory 5 Pressure Positive End Expiratory 5 Pressure Positive End Expiratory 5 Pressure Peak Inspiratory Airway 13 Pressure Peak Inspiratory Airway 17 Pressure Peak Inspiratory Airway 17 Pressure Peak Inspiratory Airway 17 Pressure Peak Inspiratory Airway 16 Pressure Peak Inspiratory Airway 19 Pressure Peak Inspiratory Airway 17 Pressure Peak Inspiratory Airway 15 Pressure Peak Inspiratory Airway 15 Pressure Peak Inspiratory Airway 18 Pressure Peak Inspiratory Airway 18 Pressure Peak Inspiratory Airway 16 Pressure Results - Laboratory Findings CBC and BMP: 12/08/18 07:30 12/08/18 07:30 ABG ABG pH 7.39 pH Units (7.32-7.45) 12/08/18 04:44 ABG pCO2 43 mmHg (35-45) 12/08/18 04:44 ABG pO2 92 mmHg (85-104) 12/08/18 04:44 ABG O2 Saturation 97 % (95-98) 12/08/18 04:44 PT/INR, D-dimer PT 15.2 Seconds (9.4-12.1) H 12/07/18 17:15 Abnormal lab findings: Abnormal lab results WBC 16.1 K/mcL (4.3-11.1) H D 12/07/18 17:15 RBC 4.18 M/mcL (4.19-5.50) L 12/07/18 10:17 Plt Count 134 K/mcL (140-400) L 12/07/18 17:15 Neutrophils # 13.2 K/mcL (1.6-8.9) H 12/07/18 17:15 Monocytes # 1.5 K/mcL (0.0-1.3) H 12/07/18 17:15 PT 15.2 Seconds (9.4-12.1) H 12/07/18 17:15 ABG pH 7.27 pH Units (7.32-7.45) L D 12/07/18 17:39 ABG pCO2 48 mmHg (35-45) H 12/07/18 20:47 ABG pO2 131 mmHg (85-104) H 12/07/18 20:47 ABG HCO3 16 mEq/L (21-27) L 12/07/18 15:28 ABG Total CO2 27 mEq/L (20-26) H 12/08/18 04:44 ABG O2 Saturation 99 % (95-98) H 12/07/18 20:47 ABG Base Excess -6 mEq/L (-2 to 3) L 12/07/18 17:39 ABG Hematocrit 31.0 % (37.5-50.1) L 12/07/18 16:10 ABG Chloride 109 mEq/L (98-107) H 12/07/18 15:28 Potassium 3.2 mEq/L (3.5-5.3) L 12/07/18 16:10 Glucose 256 mg/dL (60-95) H 12/07/18 16:10 Chloride 108 mEq/L (98-107) H 12/07/18 17:15 Carbon Dioxide 18 mEq/L (23-29) L 12/07/18 17:15 Glucose 253 mg/dL (70-105) H 12/07/18 17:15 POC Glucose 259 mg/dL (70-99) H 12/07/18 23:27 Calculated Osmolality 308 (280-300) H 12/07/18 17:15 Lactic Acid 5.7 mmol/L (0.5-2.2) H* 12/07/18 20:58 Calcium 8.3 mg/dL (8.6-10.3) L 12/07/18 17:15 Arterial Blood Ionized Calcium 1.10 mmol/L (1.15-1.35) L 12/07/18 15:28 Crossmatch See Detail 12/07/18 08:42 - Clinical Findings Intake & Output: Intake & Output 12/07/18 12/07/18 12/08/18 15:59 23:59 07:59 Intake Total 20 / 315 295 / 315 210 / 210 Output Total 2170 / 2170 100 / 100 Balance 20 / -1855 -1875 / -1855 110 / 110 Weight 72 kg Consult Discharge Plan - Plan Referrals: [facility] [Primary Care Provider] - 12/17/18 10:00 am Severo Winston MD [Partnered Physician] - 12/29/18 9:45 am <Kiera Frank - Last Filed: 12/11/18 00:43> Date of Encounter: 12/08/18 Objective PUL Vital signs: Last Vital Signs Temp 98.4 F 12/08/18 15:46 Pulse 102 12/08/18 12:00 Resp 24 12/08/18 12:00 BP 137/62 12/08/18 12:00 Pulse Ox 97 12/08/18 12:00 Results - Laboratory Findings CBC and BMP: 12/10/18 06:39 12/10/18 17:34 ABG ABG pH 7.39 pH Units (7.32-7.45) 12/08/18 04:44 ABG pCO2 43 mmHg (35-45) 12/08/18 04:44 ABG pO2 92 mmHg (85-104) 12/08/18 04:44 ABG O2 Saturation 97 % (95-98) 12/08/18 04:44 PT/INR, D-dimer PT 15.2 Seconds (9.4-12.1) H 12/07/18 17:15 Abnormal lab findings: Abnormal lab results WBC 12.8 K/mcL (4.3-11.1) H 12/08/18 07:30 RBC 4.18 M/mcL (4.19-5.50) L 12/07/18 10:17 Plt Count 115 K/mcL (140-400) L 12/08/18 07:30 Neutrophils # 10.6 K/mcL (1.6-8.9) H 12/08/18 07:30 Monocytes # 1.5 K/mcL (0.0-1.3) H 12/07/18 17:15 PT 15.2 Seconds (9.4-12.1) H 12/07/18 17:15 ABG pH 7.27 pH Units (7.32-7.45) L D 12/07/18 17:39 ABG pCO2 48 mmHg (35-45) H 12/07/18 20:47 ABG pO2 131 mmHg (85-104) H 12/07/18 20:47 ABG HCO3 16 mEq/L (21-27) L 12/07/18 15:28 ABG Total CO2 27 mEq/L (20-26) H 12/08/18 04:44 ABG O2 Saturation 99 % (95-98) H 12/07/18 20:47 ABG Base Excess -6 mEq/L (-2 to 3) L 12/07/18 17:39 ABG Hematocrit 31.0 % (37.5-50.1) L 12/07/18 16:10 ABG Chloride 109 mEq/L (98-107) H 12/07/18 15:28 Potassium 3.2 mEq/L (3.5-5.3) L 12/07/18 16:10 Glucose 256 mg/dL (60-95) H 12/07/18 16:10 Chloride 108 mEq/L (98-107) H 12/07/18 17:15 Carbon Dioxide 18 mEq/L (23-29) L 12/07/18 17:15 BUN 27 mg/dL (8-23) H 12/08/18 07:30 Glucose 253 mg/dL (70-105) H 12/08/18 07:30 POC Glucose 259 mg/dL (70-99) H 12/07/18 23:27 Calculated Osmolality 312 (280-300) H 12/08/18 07:30 Lactic Acid 5.7 mmol/L (0.5-2.2) H* 12/07/18 20:58 Calcium 8.0 mg/dL (8.6-10.3) L 12/08/18 07:30 Phosphorus 4.7 mg/dL (2.7-4.5) H 12/08/18 07:30 Magnesium 1.4 mg/dL (1.6-2.6) L 12/08/18 07:30 Arterial Blood Ionized Calcium 1.10 mmol/L (1.15-1.35) L 12/07/18 15:28 Crossmatch See Detail 12/07/18 08:42 - Clinical Findings Intake & Output: Intake & Output 12/07/18 12/08/18 12/08/18 23:59 07:59 15:59 Intake Total 295 / 315 1210 / 1510 300 / 1510 Output Total 2170 / 2170 200 / 1100 900 / 1100 Balance -1875 / -1855 1010 / 410 -600 / 410 Weight 72 kg - Attending Attestation I examined this patient and my medical decision-making was reviewed with the Resident Physician. I agree with the documented findings, disposition and treatment plan as described except to the extent set forth below. Patient seen and examined. Labs, radiology, chart personally reviewed. Agree with resident's history and physical, assessment, plan with following comments: RN IMCU: Patient follows commands, and he is doing good Pulmonary: Acceptable oxygenation and ventilation and patient was extubated successfully.and it will be important to keep his HOB elevated and IS. Patient oxygenation is good and hopefully he can be mobilized and that will help his lung function. Cardiovascular: stable and vascular surgeon is helping him. GI: Nutrition per dietary and GI prophylaxis per routine. Patient has NG and will leave it for the surgeon regarding resuming diet and feeding. Heme: DVT prophylaxis per routine ID: There is no evidence of any infections. Renal; urine out put and renal function reviewed Endorcine: blood glucose is monitored Lines: all lines checked and no evidence of infections Skin: skin care to prevent pressure ulcers per nursing routine care Dispo: defer to vascular surgeon regarding moving him and will follow up PRN. Code: Full. Prognosis. Fair
[2018-12-08] MEDS: 0.9 % Sodium Chloride 1,000 ML IVC SCH (07:32)
[2018-12-08] MEDS: Sodium Bicarbonate 150 MEQ in D5% in Water 1,000 ML IVC SCH ×2 (07:33→09:15)
[2018-12-08] MEDS ORDERED: Furosemide 20 MG/2 ML VIAL IVP ONE (07:36)
[2018-12-08 07:46] LABS: Basophils % 0.1 %; Hematocrit 40.6 % (37.5-50.1); Hemoglobin 13.8 g/dL (12.9-16.9); Immature Granulocytes % 0.3 % (0-4); Lymphocytes # 1.4 K/mcL (0.6-4.6); Lymphocytes % 10.6 %; Mean Corpuscular Hemoglobin 31.3 pg (28.0-33.3); Mean Corpuscular Volume 92.1 fL (83.0-100.0); Mean Platelet Volume 10.6 fL (9.4-12.4); Monocytes # 0.8 K/mcL (0.0-1.3); Monocytes % 6.4 %; Neutrophils # 10.6 K/mcL (1.6-8.9); Platelet Count 115 K/mcL (140-400); Red Blood Count 4.41 M/mcL (4.19-5.50); Red Cell Distribution Width 12.8 % (11.5-14.5); Segmented Neutrophils % 82.6 %; White Blood Count 12.8 K/mcL (4.3-11.1)
[2018-12-08 08:13] LABS: BUN/Creatinine Ratio 24 (6-26); Blood Urea Nitrogen 27 mg/dL (8-23); Carbon Dioxide 27 mEq/L (23-29); Chloride 105 mEq/L (98-107); Glucose 253 mg/dL (70-105); Magnesium 1.4 mg/dL (1.6-2.6); Osmolality,Calculated 312 (280-300); Phosphorous 4.7 mg/dL (2.7-4.5); Potassium 4.1 mEq/L (3.5-5.1); Sodium 144 mEq/L (136-145); eGFR For African Americans > 60 (> 60); eGFR For Non-African Americans > 60 (> 60)
[2018-12-08] MEDS ORDERED: Calcium Gluconate 1gm/50mL 1 GM/50 ML BAG IVPB ONE (08:30)
[2018-12-08] MEDS: Chlorhexidine Rinse 15 ML MOUTHWASH MM SCH (09:15)
[2018-12-08] MEDS ORDERED: Naloxone 0.4 MG/ML INJ IVP PRN ×2 (14:29→17:02)
[2018-12-08] MEDS ORDERED: Dextrose Gel 15 GM/37.5 ML TUBE PO PRN ×4 (14:29→17:02)
[2018-12-08] MEDS ORDERED: D5% in Water 1,000 ML IVC PRN ×2 (14:29→17:02)
[2018-12-08] MEDS ORDERED: Ondansetron 4 MG/2 ML VIAL IVP PRN ×3 (14:29→17:02)
[2018-12-08] MEDS ORDERED: *HR* Dextrose 50 % in Water (Syg) 50 ML SYRINGE IVP PRN ×2 (14:29→17:02)
--- NOTE | 2018-12-08 16:34 | Vascular/[facility] Progress Note ---
Date of Encounter: 12/08/18 Time of Encounter: 13:00 - Assessment and plan (1) PAD (peripheral artery disease) Current Visit: Yes Status: Chronic Patient is postoperative day #1 following aortobifemoral profunda bypass graft for combined abdominal aortic aneurysm, iliac artery aneurysms, and ileal femoral occlusive disease. Patient has known bilateral superficial femoral artery occlusions. Patient is not expected to regain palpable pulses following bypass grafting but should have improved perfusion due to profunda collaterals. (2) S/P aortobifemoral bypass surgery Current Visit: Yes Status: Acute Patient is hemodynamically and respiratory stable following major aortic reconstruction. Patient has postop ileus as expected. Continue NG tube suction. Patient may be up in chair and begin ambulation. Patient is stable to be transferred to [address] [place] [address]. (3) Metabolic acidosis Current Visit: Yes Status: Resolved Patient's perioperative acidosis is now resolved. - Subjective Interval history: Patient is postoperative day #1 following repair of abdominal aortic aneurysm, bilateral iliac artery aneurysm, and aortobifemoral bypass performed a bypass graft. The patient was extubated earlier this morning at approximately 7:45 AM. Patient has a weak voice. He is awake and alert. He has no complaints. His family is at the bedside. He denies any shortness of breath or dyspnea. Patient is comfortable. Vital Signs, Last 4 Hours Temp Pulse Resp BP Pulse Ox 12/08/18 16:00 110 24 138/84 92 12/08/18 15:46 98.4 F - Physical Examination General: Present: Conversant, No Apparent Distress HEENT: Present: Atraumatic, Normocephaly Neck: Absent: JVD Cardiac: Present: Reg Rate and Rhythm, Normal S1 and S2, No Murmur Lungs: Present: Normal Breath Sounds Neuro: Present: Alert and responsive, No focal deficits noted, Cranial nerves grossly intact Vascular: Present: Color/Temperature (Feet are warm and pink.), Surgical incisions (Dry dressings on surgical incisions), Other (Patient has Doppler signals at the ankle bilaterally.). Absent: Edema Abdomen: Present: Soft, Other (Minimal bowel sounds.). Absent: Masses Skin: Present: No rashes noted on visualized skin Results 12/08/18 07:30 12/08/18 07:30 Lab Results, Last 24 hours 12/07/18 12/07/18 12/07/18 17:15 17:15 17:15 WBC 16.1 H D Hgb 15.1 D Hct 47.5 Plt Count 134 L INR 1.3 APTT 29.6 Sodium 144 Potassium 3.8 Chloride 108 H Carbon Dioxide 18 L BUN 16 Creatinine 1.17 Glucose 253 H Calcium 8.3 L Magnesium 12/08/18 12/08/18 07:30 07:30 WBC 12.8 H Hgb 13.8 Hct 40.6 Plt Count 115 L INR APTT Sodium 144 Potassium 4.1 Chloride 105 Carbon Dioxide 27 BUN 27 H Creatinine 1.13 Glucose 253 H Calcium 8.0 L Magnesium 1.4 L Consult Discharge Plan - Plan Referrals: [facility],PCP [Primary Care Provider] - 12/17/18 10:00 am Severo Winston MD [Partnered Physician] - 12/29/18 9:45 am
[2018-12-08] MEDS ORDERED: Ketorolac 15 MG/ML VIAL IVP PRN (17:02)
[2018-12-08] MEDS ORDERED: *HR* Labetalol 20 MG/4 ML SYRINGE IVP PRN (17:02)
[2018-12-08] MEDS ORDERED: Famotidine 20 MG/2 ML VIAL IVP SCH (18:00)
[2018-12-08] MEDS ORDERED: Insulin LISPRO 300 UNITS/3 ML VIAL SQ SCH (18:00)
[2018-12-09] MEDS: Insulin LISPRO 300 UNITS/3 ML VIAL SQ SCH ×4 (00:11→17:29)
[2018-12-09 04:48] LABS: Basophils % 0.1 %; Hematocrit 36.5 % (37.5-50.1); Immature Granulocytes % 0.7 % (0-4); Lymphocytes # 1.4 K/mcL (0.6-4.6); Lymphocytes % 10.7 %; Mean Corpuscular HGB Conc 33.4 g/dL (31.6-35.5); Mean Corpuscular Volume 92.6 fL (83.0-100.0); Mean Platelet Volume 11.1 fL (9.4-12.4); Monocytes # 0.9 K/mcL (0.0-1.3); Neutrophils # 10.2 K/mcL (1.6-8.9); Platelet Count 111 K/mcL (140-400); Red Blood Count 3.94 M/mcL (4.19-5.50); Red Cell Distribution Width 12.9 % (11.5-14.5); Segmented Neutrophils % 81.5 %; White Blood Count 12.6 K/mcL (4.3-11.1)
[2018-12-09 05:04] LABS: Hemoglobin 12.2 g/dL (12.9-16.9)
[2018-12-09 05:07] LABS: BUN/Creatinine Ratio 28 (6-26); Blood Urea Nitrogen 31 mg/dL (8-23); Calcium 8.5 mg/dL (8.6-10.3); Carbon Dioxide 30 mEq/L (23-29); Chloride 107 mEq/L (98-107); Glucose 194 mg/dL (70-105); Osmolality,Calculated 308 (280-300); Potassium 3.9 mEq/L (3.5-5.1); Sodium 143 mEq/L (136-145); eGFR For African Americans > 60 (> 60); eGFR For Non-African Americans > 60 (> 60)
[2018-12-09] MEDS: Famotidine 20 MG/2 ML VIAL IVP SCH ×2 (06:08→17:22)
[2018-12-09] MEDS ORDERED: Aminoglycoside Consult 1 EACH MC ONE (09:34)
--- NOTE | 2018-12-09 15:38 | Vascular/[facility] Progress Note ---
Date of Encounter: 12/09/18 Time of Encounter: 15:35 - Assessment and plan (1) PAD (peripheral artery disease) Current Visit: Yes Status: Chronic Patient is postoperative day #2 following aortobifemoral profunda bypass graft for combined abdominal aortic aneurysm, iliac artery aneurysms, and iliofemoral occlusive disease. Patient has known bilateral superficial femoral artery occlusions. Patient is not expected to regain palpable pulses following bypass grafting but should have improved perfusion due to profunda collaterals. Patient was sitting up in a chair today. The NG tube was still in position. Patient remains hemostatically stable. Patient transferred to [address] [place] [address] when bed available as written yesterday. Begin IV fluid due to his nothing by mouth status. (2) S/P aortobifemoral bypass surgery Current Visit: Yes Status: Acute Patient is hemodynamically and respiratory stable following major aortic reconstruction. Patient has postop ileus as expected. Continue NG tube suction. Patient may be up in chair and begin ambulation. Patient is stable to be transferred to [address] [place] [address]. (3) Metabolic acidosis Current Visit: Yes Status: Resolved Patient's perioperative acidosis is now resolved. - Subjective Interval history: Patient is postoperative day #2 following repair of abdominal aortic aneurysm, bilateral iliac artery aneurysm, and aortobifemoral bypass performed a bypass graft. Patient has a weak voice. He is tired and sleepy but easily arousable. He has no complaints. His family is at the bedside. He denies any shortness of breath or dyspnea. Patient is comfortable. He states he is not having any significant incisional or groin pain. He denies any pain in his lower extremities. Vital Signs, Last 4 Hours Temp Pulse Resp BP Pulse Ox 12/09/18 12:31 97.7 F 12/09/18 12:00 116 28 116/60 90 - Physical Examination General: Present: No Apparent Distress HEENT: Present: Atraumatic Neck: Absent: JVD Cardiac: Present: Reg Rate and Rhythm, Other (Sinus tachycardia) Lungs: Present: Decreased breath sounds Neuro: Present: Alert and responsive, No focal deficits noted Vascular: Present: Other (Patient has Doppler signals over the posterior tibial artery bilaterally. His feet are warm to the touch. Capillary refill is 2-3 seconds.) Abdomen: Present: Soft, Non-tender, Other (Patient has hypoactive bowel sounds) Skin: Present: No rashes noted on visualized skin Results 12/09/18 04:04 12/09/18 04:04 Lab Results, Last 24 hours 12/09/18 12/09/18 04:04 04:04 WBC 12.6 H Hgb 12.2 L D Hct 36.5 L Plt Count 111 L Sodium 143 Potassium 3.9 Chloride 107 Carbon Dioxide 30 H BUN 31 H Creatinine 1.10 Glucose 194 H Calcium 8.5 L Consult Discharge Plan - Plan Referrals: [facility],PCP [Primary Care Provider] - 12/17/18 10:00 am Severo Winston MD [Partnered Physician] - 12/29/18 9:45 am
--- NOTE | 2018-12-09 16:32 | Anesthesia Evaluation Post Op ---
Date of Encounter: 12/09/18 Time of Encounter: 16:31 - Vital Signs Vital Signs: Vital Signs/O2 Sat, Most Current Temp Pulse Resp BP Pulse Ox 97.7 F 116 28 116/60 90 12/09/18 12:31 12/09/18 12:00 12/09/18 12:00 12/09/18 12:00 12/09/18 12:00 - Lungs Lungs: Clear Ascult./Percussion - Airway Airway: Non-obstructed - Cardiovascular Regular Rate - Mental Status Mental Status: Alert & Oriented, Answers Appropriately - Pain Pain Scale: 0 Pain Scale used: Numeric (1 - 10) - Nausea Vomiting Nausea Vomiting: Not Present - Hydration Hydration: NPO - Discharge PostOp Status: Transfer Patient to floor (pt is now extubated and is hemodynamically stable, further management per primary and ICU team)
[2018-12-09] MEDS: Ringers Solution, Lactated 1,000 ML IVC SCH (17:23)
--- NOTE | 2018-12-09 18:57 | Internal Med Progress Note ---
Hospitalist Progress Note - Encounter Date of Encounter: 12/09/18 Time of Encounter: 10:00 - Subjective Interval History: No acute events overnight. Patient has been extubated and is doing well. He has no new complaints - Exam Vitals: Temp Pulse Resp BP Pulse Ox 37.6 C H 114 28 128/79 91 12/09/18 16:00 12/09/18 16:00 12/09/18 16:00 12/09/18 16:00 12/09/18 16:00 Exam: GENERAL: Not in distress. Alert and Oriented HEENT: EOMI, PERRLA MOUTH: Good oral hygiene NECK:No JVD, No lymph nodes. CHEST AND LUNGS:Saturating well on room air. Normal breath sounds, no wheezes or crackles HEART: S1 and S2 normal, no murmurs ABDOMEN: Soft, nontender, no organomegaly SKIN: Normal color, no rahses, no lesions EXTREMITIES: No deformity, no edema, no tenderness, no joint swelling or clubbing NEUROLOGICAL: Normal cognition, normal motor and sensory exam. - Assessment and Plan (1) S/P aortobifemoral bypass surgery Current Visit: Yes Status: Acute Assessment and Plan: Surgical site looks clean and dry. Further management per surgeon's (2) Diabetes mellitus Current Visit: Yes Status: Chronic Assessment and Plan: Accu-Checks Continue sliding scale (3) HTN (hypertension) Current Visit: Yes Status: Chronic Assessment and Plan: Blood pressure has been controlled since admission We will monitor and place medications when necessary (4) PAD (peripheral artery disease) Current Visit: Yes Status: Chronic Assessment and Plan: Peripheral pulses palpable Patient expresses no pain in lower extremities Continued (5) Metabolic acidosis Current Visit: Yes Status: Resolved DVT Prophylaxis: SQ Heparin - Summary of Assessment and Plan Summary of Assessment and Plan: Patient is a 73-year-old man with a past medical history of CAD with CABG in 1999, diabetes mellitus, hypertension, hyperlipidemia, we recently had an aortobifemoral bypass graft performed. Intraoperative experience about 3 L of blood loss for which she had to be transfused 2 units of packed red blood cells. He also had severe metabolic acidosis that required him being admitted to the ICU postoperatively with an extended time of intubation. He has currently been extubated and is doing well. And his management has been stepped down from the critical level to the nursing floor. - Time Spent with Patient Total time spent is greater than 50% in coordination of care (as documented) at patient's floor/unit and/or counseling patient: Internal Medicine: Result - Labs CBC & Chem 7: 12/09/18 22:55 12/09/18 04:04 Labs: Short CBC 12/09/18 Range/Units 04:04 WBC 12.6 H (4.3-11.1) K/mcL Hgb 12.2 L D (12.9-16.9) g/dL Hct 36.5 L (37.5-50.1) % Plt Count 111 L (140-400) K/mcL Neutrophils # 10.2 H (1.6-8.9) K/mcL BMP 12/09/18 04:04 Sodium 143 Potassium 3.9 Chloride 107 Carbon Dioxide 30 H BUN 31 H Creatinine 1.10 Glucose 194 H Calcium 8.5 L - ABG Interpretation ABG results: ABG ABG pH 7.39 pH Units (7.32-7.45) 12/08/18 04:44 ABG pCO2 43 mmHg (35-45) 12/08/18 04:44 ABG pO2 92 mmHg (85-104) 12/08/18 04:44 ABG O2 Saturation 97 % (95-98) 12/08/18 04:44 PT/INR, D-dimer PT 15.2 Seconds (9.4-12.1) H 12/07/18 17:15 Consult Discharge Plan - Plan [facility]errals: [facility] [Primary Care Provider[facility] - 12/17/18 10:00 am Severo Winston MD [Partnered Physician] - 12/29/18 9:45 am (2) Diabetes mellitus Qualifiers: Diabetes mellitus type: type 2 Diabetes mellitus meterman insulin use: without meterman use Diabetes mellitus complication status: with other s pecified complication Qualified Code(s): E11.69 - Type 2 diabetes mellitus with other specified complication (3) HTN (hypertension) Qualifiers: Hypertension type: essential hypertension Qualified Code(s): I10 - Essential (primary) hypertension
[2018-12-09] MEDS ORDERED: Furosemide 40 MG/4 ML VIAL IVP ONE (22:35)
[2018-12-09] MEDS ORDERED: Ipratropium/Albuterol Neb 3 ML IH ONE (22:37)
[2018-12-09 22:48] LABS: ABG Base Excess 6 mEq/L (-2 to 3); ABG HCO3 30 mEq/L (21-27); ABG Oxygen Saturation 86 % (95-98); ABG PCO2 43 mmHg (35-45); ABG PH 7.45 pH Units (7.32-7.45); ABG PO2 50 mmHg (85-104); ABG TCO2 32 mEq/L (20-26)
[2018-12-09 23:11] LABS: Hematocrit 36.1 % (37.5-50.1); Hemoglobin 11.8 g/dL (12.9-16.9); Immature Granulocytes % 0.3 % (0-4); Lymphocytes # 0.9 K/mcL (0.6-4.6); Lymphocytes % 7.6 %; Mean Corpuscular HGB Conc 32.7 g/dL (31.6-35.5); Mean Corpuscular Hemoglobin 30.9 pg (28.0-33.3); Mean Corpuscular Volume 94.5 fL (83.0-100.0); Mean Platelet Volume 10.9 fL (9.4-12.4); Monocytes # 0.7 K/mcL (0.0-1.3); Monocytes % 5.6 %; Neutrophils # 10.1 K/mcL (1.6-8.9); Platelet Count 126 K/mcL (140-400); Red Blood Count 3.82 M/mcL (4.19-5.50); Red Cell Distribution Width 13.1 % (11.5-14.5); Segmented Neutrophils % 86.5 %; White Blood Count 11.7 K/mcL (4.3-11.1)
[2018-12-09 23:31] LABS: Alanine Aminotransferase 9 Units/L (7-52); Albumin 2.9 g/dL (3.5-5.7); Albumin/Globulin Ratio 1.5 (1.1-2.2); Alkaline Phosphatase 37 Units/L (34-104); Aspartate Amino Transferase 21 Units/L (13-39); BUN/Creatinine Ratio 35 (6-26); Bilirubin,Total 0.6 mg/dL (0.3-1.0); Blood Urea Nitrogen 32 mg/dL (8-23); Calcium 8.5 mg/dL (8.6-10.3); Carbon Dioxide 27 mEq/L (23-29); Chloride 107 mEq/L (98-107); Creatine Kinase 279 Units/L (30-223); Glucose 184 mg/dL (70-105); Magnesium 1.9 mg/dL (1.6-2.6); Osmolality,Calculated 310 (280-300); Phosphorous 2.2 mg/dL (2.7-4.5); Potassium 3.9 mEq/L (3.5-5.1); Sodium 144 mEq/L (136-145); Total Protein 4.9 g/dL (6.4-8.9); Troponin I 0.03 ng/mL (< 0.04); eGFR For African Americans > 60 (> 60); eGFR For Non-African Americans > 60 (> 60)
[2018-12-10] MEDS ORDERED: Isovue-370 500 ML BOTTLE IVP ONE (00:13)
--- NOTE | 2018-12-10 00:19 | Event Note ---
Date of Encounter: 12/10/18 Time of Encounter: 00:15 12/09/18 @ 1100: Contacted by nursing to evaluate new desaturations and increased work of breathing, patient has been stable on 4L all day but now requiring 10L oxymask and desaturating to low 80s. Patient evalauted and found to be rhonchorous on the left with use of accessory muscles, tachypnic up to the 40s. HR in the 110s. BP stable, afebrile. He does acknowledge he is full code and agrees to plan for reintubation if necessary. He denies any chest or abdominal pain, abdomen is soft, non-distended and there is no sequela of bleeding. Patient given 40mg IV lasix given concern for edema. Sent stat CBC, CMP, troponin, BNP, chest XR. Patient placed on BiPAP with slight improvement of oxygenation. ABG shows alkalosis but no hypercapnia. 12/10/18 @ 0000: Patient continues to have increased work of breathing with use of accessory muscles, rhonchorous on the left side, tachypnic to the mid 30s, and saturations persist in the mid to upper 80s on BiPAP. I discussed with the patient and he agrees with plan for reintubation. Chest x-ray shows concern for pneumonia. No significant leukocytosis, electrolyte abnormality. Troponin 0.03. There is concern for pneumonia therefore blood cultures and repeat lactate drawn and will place patient on vancomycin and Zosyn. Patient intubated and sedated. We will obtain CT angiogram to evaluate infiltrate versus pulmonary embolism given he has a history of claudication, recent surgery, and immobilization.
--- NOTE | 2018-12-10 00:31 | Procedure Note ---
Date of procedure: 12/10/18 Procedure: Endotracheal Intubation Date: 12/10/18 Time: 0008 Indication: Respiratory Distress Resident: Darlene Kam DO Attending: Drs. Feliz and Katheryn A time-out was completed verifying correct patient, procedure, site, positioning, and special equipment if applicable. The patient was placed in a slightly head up position. Sedation was obtained using Versed 5mg, and additionally with Etomidate 20mg. The patient was easily ventilated using an ambu bag. The Gonzalez 2 blade was used and inserted into the oropharynx at which time there was a Grade 1 view of the vocal cords. A 8.0-tanzanian endotracheal tube was inserted and visualized going through the vocal cords on first pass. The stylette was removed. Colorimetric change was visualized on the CO2 meter. Breath sounds were heard in both lung sanchez equally, positive color change on colorimetric CO2 detector. The endotracheal tube was placed at 24 cm, measured at the lips. Attending was present for the entire procedure. Patient went for CT angiogram which confirmed endotracheal position but deep, ET tube retracted by 3cm. Estimated Blood Loss: 0 The patient tolerated the procedure well and there were no complications. 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
[2018-12-10] MEDS ORDERED: Artificial Tears SOLN 15 ML BOTTLE BOTH EYES PRN (00:38)
[2018-12-10] MEDS: Insulin LISPRO 300 UNITS/3 ML VIAL SQ SCH ×4 (00:39→17:52)
[2018-12-10] MEDS: Piperacillin/Tazobactam 3.375 GM in 0.9 % Sodium Chloride Mini Bag 100 ML IVPB SCH ×3 (01:17→16:09)
[2018-12-10] MEDS: Pantoprazole 40 MG VIAL IVP SCH ×2 (01:21→09:15)
[2018-12-10 01:45] LABS: ABG Base Excess 6 mEq/L (-2 to 3); ABG HCO3 30 mEq/L (21-27); ABG Oxygen Saturation 94 % (95-98); ABG PCO2 42 mmHg (35-45); ABG PH 7.47 pH Units (7.32-7.45); ABG PO2 68 mmHg (85-104); ABG TCO2 32 mEq/L (20-26); Blood Gas Modality ASSIST CONTROL; Blood Gas PEEP 5 cm H2O; Blood Gas VT 500 cc
[2018-12-10] MEDS: 0.9 % Sodium Chloride 1,000 ML IVC SCH (02:55)
[2018-12-10] MEDS ORDERED: Calcium Gluconate 1gm/50mL 1 GM/50 ML BAG IVPB PRN (03:05)
[2018-12-10] MEDS: Artificial Tears SOLN 15 ML BOTTLE BOTH EYES SCH ×5 (03:45→20:34)
[2018-12-10] MEDS: Ringers Solution, Lactated 1,000 ML IVC SCH (03:53)
[2018-12-10 04:54] LABS: VBG Ionized Calcium 1.13 mmol/L (1.15-1.35)
[2018-12-10 04:56] LABS: Magnesium 1.9 mg/dL (1.6-2.6); Phosphorous 2.3 mg/dL (2.7-4.5)
[2018-12-10 05:21] LABS: BUN/Creatinine Ratio 31 (6-26); Blood Urea Nitrogen 31 mg/dL (8-23); Calcium 8.8 mg/dL (8.6-10.3); Carbon Dioxide 30 mEq/L (23-29); Chloride 102 mEq/L (98-107); Glucose 189 mg/dL (70-105); Osmolality,Calculated 326 (280-300); Potassium 3.8 mEq/L (3.5-5.1); Sodium 152 mEq/L (136-145); eGFR For African Americans > 60 (> 60); eGFR For Non-African Americans > 60 (> 60)
[2018-12-10 05:25] LABS: ABG Base Excess 7 mEq/L (-2 to 3); ABG HCO3 31 mEq/L (21-27); ABG Oxygen Saturation 96 % (95-98); ABG PCO2 42 mmHg (35-45); ABG PH 7.48 pH Units (7.32-7.45); ABG PO2 79 mmHg (85-104); ABG TCO2 33 mEq/L (20-26); Blood Gas Modality ASSIST CONTROL; Blood Gas PEEP 5 cm H2O; Blood Gas VT 500 cc
[2018-12-10] MEDS: Famotidine 20 MG/2 ML VIAL IVP SCH ×2 (06:04→17:50)
--- NOTE | 2018-12-10 06:45 | Pulmonology Progress Note ---
<Gilberto Amador - Last Filed: 12/10/18 14:12> Date of Encounter: 12/10/18 Time of Encounter: 07:15 Assessment and Plan (1) Acute respiratory failure with hypoxia Current Visit: Yes Status: Acute Suspected to be secondary to new pneumonia of the left lower lobe. This can be appreciated on the CTA chest obtained overnight on 12/09-12/10 Patient was empirically started on Vanc and Zosyn Currently intubated and sedated with propofol ABG this morning was alkalotic with pH of 7.48, with elevated bicarbonate of 31. Vent settings were adjusted, and IV fluid rate was increased to 125 mL/hr. Bronchoscopy recommended for left lower lobe secretions and likely mucous plugging. R/B/A discussed with patient's over the phone. [facility] see [facility] for further details with bronchoscopy. 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 Winston on 12/07/18 Vascular surgery following (4) Diabetes mellitus Current Visit: Yes Status: Chronic q6hr accuchecks and SSI Qualifiers: Diabetes mellitus type: type 2 Diabetes mellitus intermediate manager insulin use: without jail use Diabetes mellitus complication status: with other specified complication Qualified Code(s): E11.69 - Type 2 diabetes mellitus with other specified complication (5) DVT prophylaxis Current Visit: Yes Status: Acute EPCDs Subjective Principal diagnosis: Acute repiratory failure Interval history: Patient seen and examined at bedside. Overnight the patient decompensated with decreasing SPO2 and increased work of breathing. Patient was initially placed on 10 L Oxymizer mask, but SPO2 remained in the low 80s. The patient also fails a trial of BiPAP with SPO 2 remaining in the mid to upper 80s. At that time the patient was intubated by the overnight team. CT angiogram of the chest was obtained which was negative for pulmonary embolism, but did demonstrate left lower lobe collapse with secretions occluding the left lower lobe airway. Patient remains sedated and intubated at this time. Objective PUL Vital signs: Last Vital Signs Temp 100.1 F H 12/10/18 03:15 Pulse 113 12/10/18 06:00 Resp 17 12/10/18 06:00 BP 106/82 12/10/18 06:00 Pulse Ox 95 12/10/18 06:00 General appearance: no acute distress, asleep Eyes: nonicteric ENT: oropharynx moist Neck: supple Effort: normal Auscultation: left: diminished breath sounds (base), right: clear Cardiovascular: other (Tachycardic) Gastrointestinal: soft, non-tender, non-distended Integumentary: other (Midline abdominal incision with clean dressing in place) Extremities: no cyanosis, no edema, no clubbing, pink and warm, pulses normal Musculoskeletal: no deformities unable to assess due to mental status Ventilator Settings Ventilator Settings: Ventilator Settings, Last 8 Hours Ventilator Tidal Volume 500 Setting Ventilator Tidal Volume 500 Setting Ventilator Tidal Volume 500 Setting Ventilator Tidal Volume 500 Setting Ventilator Tidal Volume 500 Setting Ventilator Tidal Volume 500 Setting Ventilator Tidal Volume 500 Setting Ventilator Tidal Volume 500 Setting Ventilator Tidal Volume 500 Setting Ventilator Tidal Volume 500 Setting Ventilator Tidal Volume 500 Setting Ventilator Respiratory Rate 12 Setting Ventilator Respiratory Rate 12 Setting Ventilator Respiratory Rate 12 Setting Ventilator Respiratory Rate 12 Setting Ventilator Respiratory Rate 12 Setting Ventilator Respiratory Rate 12 Setting Ventilator Respiratory Rate 12 Setting Ventilator Respiratory Rate 12 Setting Ventilator Respiratory Rate 12 Setting Ventilator Respiratory Rate 12 Setting Ventilator Respiratory Rate 12 Setting Actual Respiratory Rate 17 Actual Respiratory Rate 20 Actual Respiratory Rate 17 Actual Respiratory Rate 22 Actual Respiratory Rate 17 Actual Respiratory Rate 17 Actual Respiratory Rate 19 Actual Respiratory Rate 19 Actual Respiratory Rate 20 Positive End Expiratory 5 Pressure Positive End Expiratory 5 Pressure Positive End Expiratory 5 Pressure Positive End Expiratory 5 Pressure Positive End Expiratory 5 Pressure Positive End Expiratory 5 Pressure Positive End Expiratory 5 Pressure Positive End Expiratory 5 Pressure Positive End Expiratory 5 Pressure Positive End Expiratory 5 Pressure Positive End Expiratory 5 Pressure Peak Inspiratory Airway 23 Pressure Peak Inspiratory Airway 26 Pressure Peak Inspiratory Airway 30 Pressure Results - Laboratory Findings CBC and BMP: 12/10/18 06:39 12/10/18 04:15 ABG ABG pH 7.48 pH Units (7.32-7.45) H 12/10/18 05:22 ABG pCO2 42 mmHg (35-45) 12/10/18 05:22 ABG pO2 79 mmHg (85-104) L 12/10/18 05:22 ABG O2 Saturation 96 % (95-98) 12/10/18 05:22 PT/INR, D-dimer PT 15.2 Seconds (9.4-12.1) H 12/07/18 17:15 Abnormal lab findings: Abnormal lab results WBC 11.7 K/mcL (4.3-11.1) H 12/09/18 22:55 RBC 3.82 M/mcL (4.19-5.50) L 12/09/18 22:55 Hgb 11.8 g/dL (12.9-16.9) L 12/09/18 22:55 Hct 36.1 % (37.5-50.1) L 12/09/18 22:55 Plt Count 126 K/mcL (140-400) L 12/09/18 22:55 Neutrophils # 10.1 K/mcL (1.6-8.9) H 12/09/18 22:55 Monocytes # 1.5 K/mcL (0.0-1.3) H 12/07/18 17:15 PT 15.2 Seconds (9.4-12.1) H 12/07/18 17:15 ABG pH 7.48 pH Units (7.32-7.45) H 12/10/18 05:22 ABG pCO2 48 mmHg (35-45) H 12/07/18 20:47 ABG pO2 79 mmHg (85-104) L 12/10/18 05:22 ABG HCO3 31 mEq/L (21-27) H 12/10/18 05:22 ABG Total CO2 33 mEq/L (20-26) H 12/10/18 05:22 ABG O2 Saturation 94 % (95-98) L 12/10/18 01:42 ABG Base Excess 7 mEq/L (-2 to 3) H 12/10/18 05:22 ABG Hematocrit 31.0 % (37.5-50.1) L 12/07/18 16:10 ABG Chloride 109 mEq/L (98-107) H 12/07/18 15:28 Potassium 3.2 mEq/L (3.5-5.3) L 12/07/18 16:10 Glucose 256 mg/dL (60-95) H 12/07/18 16:10 Sodium 152 mEq/L (136-145) H 12/10/18 04:15 Chloride 108 mEq/L (98-107) H 12/07/18 17:15 Carbon Dioxide 30 mEq/L (23-29) H 12/10/18 04:15 BUN 31 mg/dL (8-23) H 12/10/18 04:15 BUN/Creatinine Ratio 31 (6-26) H 12/10/18 04:15 Glucose 189 mg/dL (70-105) H 12/10/18 04:15 POC Glucose 170 mg/dL (70-99) H 12/09/18 23:38 Calculated Osmolality 326 (280-300) H 12/10/18 04:15 Lactic Acid 5.7 mmol/L (0.5-2.2) H* 12/07/18 20:58 Calcium 8.5 mg/dL (8.6-10.3) L 12/09/18 22:55 Venous Ioniz Calcium 1.13 mmol/L (1.15-1.35) L 12/10/18 04:47 Phosphorus 2.3 mg/dL (2.7-4.5) L 12/10/18 04:15 Magnesium 1.4 mg/dL (1.6-2.6) L 12/08/18 07:30 Creatine Kinase 279 Units/L (30-223) H 12/09/18 22:55 Serum Total Protein 4.9 g/dL (6.4-8.9) L 12/09/18 22:55 Albumin 2.9 g/dL (3.5-5.7) L 12/09/18 22:55 Globulin 2.0 g/dL (2.4-3.5) L 12/09/18 22:55 Arterial Blood Ionized Calcium 1.10 mmol/L (1.15-1.35) L 12/07/18 15:28 Crossmatch See Detail 12/07/18 08:42 - Microbiology Findings Microbiology Findings: Microbiology, Last 48 Hours 12/10/18 00:33 Blood Culture - Preliminary Peripheral Venipuncture Culture is incubating and being continuously monitored for growth. Final report to follow. 12/10/18 00:33 Blood Culture - Preliminary Peripheral Venipuncture Culture is incubating and being continuously monitored for growth. Final report to follow. - Diagnostic Findings Chest x-ray: report reviewed, image reviewed CT scan - chest: report reviewed, image reviewed - Clinical Findings Intake & Output: Intake & Output 12/09/18 12/09/18 12/10/18 15:59 23:59 07:59 Intake Total 438 / 438 350 / 350 Output Total 500 / 750 50 / 750 1000 / 1000 Balance -500 / -312 388 / -312 -650 / -650 Weight 72.3 kg Consult Discharge Plan - Plan Referrals: [facility],PCP [Primary Care Provider] - 12/17/18 10:00 am Severo Winston MD [Partnered Physician] - 12/29/18 9:45 am <Kiera Frank - Last Filed: 12/11/18 01:48> Date of Encounter: 12/10/18 Objective PUL Vital signs: Last Vital Signs Temp 100.1 F H 12/10/18 08:00 Pulse 111 12/10/18 09:00 Resp 20 12/10/18 09:00 BP 114/73 12/10/18 09:00 Pulse Ox 96 12/10/18 09:00 Ventilator Settings Ventilator Settings: Ventilator Settings, Last 8 Hours Ventilator Tidal Volume 500 Setting Ventilator Tidal Volume 500 Setting Ventilator Tidal Volume 500 Setting Ventilator Tidal Volume 500 Setting Ventilator Tidal Volume 500 Setting Ventilator Tidal Volume 500 Setting Ventilator Tidal Volume 500 Setting Ventilator Tidal Volume 500 Setting Ventilator Tidal Volume 500 Setting Ventilator Tidal Volume 500 Setting Ventilator Tidal Volume 500 Setting Ventilator Respiratory Rate 12 Setting Ventilator Respiratory Rate 12 Setting Ventilator Respiratory Rate 12 Setting Ventilator Respiratory Rate 12 Setting Ventilator Respiratory Rate 12 Setting Ventilator Respiratory Rate 12 Setting Ventilator Respiratory Rate 12 Setting Ventilator Respiratory Rate 12 Setting Ventilator Respiratory Rate 12 Setting Ventilator Respiratory Rate 12 Setting Ventilator Respiratory Rate 12 Setting Actual Respiratory Rate 19 Actual Respiratory Rate 17 Actual Respiratory Rate 20 Actual Respiratory Rate 17 Actual Respiratory Rate 22 Actual Respiratory Rate 17 Actual Respiratory Rate 17 Positive End Expiratory 8 Pressure Positive End Expiratory 5 Pressure Positive End Expiratory 8 Pressure Positive End Expiratory 5 Pressure Positive End Expiratory 5 Pressure Positive End Expiratory 5 Pressure Positive End Expiratory 5 Pressure Positive End Expiratory 5 Pressure Positive End Expiratory 5 Pressure Positive End Expiratory 5 Pressure Positive End Expiratory 5 Pressure Peak Inspiratory Airway 25 Pressure Peak Inspiratory Airway 25 Pressure Peak Inspiratory Airway 23 Pressure Results - Laboratory Findings CBC and BMP: 12/10/18 06:39 12/10/18 17:34 ABG ABG pH 7.48 pH Units (7.32-7.45) H 12/10/18 05:22 ABG pCO2 42 mmHg (35-45) 12/10/18 05:22 ABG pO2 79 mmHg (85-104) L 12/10/18 05:22 ABG O2 Saturation 96 % (95-98) 12/10/18 05:22 PT/INR, D-dimer PT 15.2 Seconds (9.4-12.1) H 12/07/18 17:15 Abnormal lab findings: Abnormal lab results WBC 11.7 K/mcL (4.3-11.1) H 12/09/18 22:55 RBC 3.60 M/mcL (4.19-5.50) L 12/10/18 06:39 Hgb 11.2 g/dL (12.9-16.9) L 12/10/18 06:39 Hct 34.6 % (37.5-50.1) L 12/10/18 06:39 Plt Count 131 K/mcL (140-400) L 12/10/18 06:39 Neutrophils # 10.1 K/mcL (1.6-8.9) H 12/09/18 22:55 Monocytes # 1.5 K/mcL (0.0-1.3) H 12/07/18 17:15 PT 15.2 Seconds (9.4-12.1) H 12/07/18 17:15 ABG pH 7.48 pH Units (7.32-7.45) H 12/10/18 05:22 ABG pCO2 48 mmHg (35-45) H 12/07/18 20:47 ABG pO2 79 mmHg (85-104) L 12/10/18 05:22 ABG HCO3 31 mEq/L (21-27) H 12/10/18 05:22 ABG Total CO2 33 mEq/L (20-26) H 12/10/18 05:22 ABG O2 Saturation 94 % (95-98) L 12/10/18 01:42 ABG Base Excess 7 mEq/L (-2 to 3) H 12/10/18 05:22 ABG Hematocrit 31.0 % (37.5-50.1) L 12/07/18 16:10 ABG Chloride 109 mEq/L (98-107) H 12/07/18 15:28 Potassium 3.2 mEq/L (3.5-5.3) L 12/07/18 16:10 Glucose 256 mg/dL (60-95) H 12/07/18 16:10 Sodium 152 mEq/L (136-145) H 12/10/18 04:15 Chloride 108 mEq/L (98-107) H 12/07/18 17:15 Carbon Dioxide 30 mEq/L (23-29) H 12/10/18 04:15 BUN 31 mg/dL (8-23) H 12/10/18 04:15 BUN/Creatinine Ratio 31 (6-26) H 12/10/18 04:15 Glucose 189 mg/dL (70-105) H 12/10/18 04:15 POC Glucose 170 mg/dL (70-99) H 12/09/18 23:38 Calculated Osmolality 326 (280-300) H 12/10/18 04:15 Lactic Acid 5.7 mmol/L (0.5-2.2) H* 12/07/18 20:58 Calcium 8.5 mg/dL (8.6-10.3) L 12/09/18 22:55 Venous Ioniz Calcium 1.13 mmol/L (1.15-1.35) L 12/10/18 04:47 Phosphorus 2.3 mg/dL (2.7-4.5) L 12/10/18 04:15 Magnesium 1.4 mg/dL (1.6-2.6) L 12/08/18 07:30 Creatine Kinase 279 Units/L (30-223) H 12/09/18 22:55 Serum Total Protein 4.9 g/dL (6.4-8.9) L 12/09/18 22:55 Albumin 2.9 g/dL (3.5-5.7) L 12/09/18 22:55 Globulin 2.0 g/dL (2.4-3.5) L 12/09/18 22:55 Arterial Blood Ionized Calcium 1.10 mmol/L (1.15-1.35) L 12/07/18 15:28 Crossmatch See Detail 12/07/18 08:42 - Microbiology Findings Microbiology Findings: Microbiology, Last 48 Hours 12/10/18 00:33 Blood Culture - Preliminary Peripheral Venipuncture Culture is incubating and being continuously monitored for growth. Final report to follow. 12/10/18 00:33 Blood Culture - Preliminary Peripheral Venipuncture Culture is incubating and being continuously monitored for growth. Final report to follow. - Clinical Findings Intake & Output: Intake & Output 12/09/18 12/10/18 12/10/18 23:59 07:59 15:59 Intake Total 438 / 438 454 / 986 532 / 986 Output Total 50 / 750 1000 / 1250 250 / 1250 Balance 388 / -312 -546 / -264 282 / -264 Weight 72.3 kg - Attending Attestation I examined this patient and my medical decision-making was reviewed with the Resident Physician. I agree with the documented findings, disposition and treatment plan as described except to the extent set forth below. Patient seen and examined. Labs, radiology, chart personally reviewed. 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 S/P bronchoscopy. Patient most likely has atelectasis and suspect HCAP. Patient is on broad spectrum antibiotics.I have discussed with Dr. Winston plan of care and need to control his fever and increasing IVF to count for insensible loss is important. Pt responded good to increase PEEP and I'm hoping in next 1-2 days can be extubated. Cardiovascular: stable GI: Nutrition per dietary and GI prophylaxis per routine and start TF if vascular agree with start Heme: DVT prophylaxis per routine and start heparin DVT prophylaxis ID: Continue antibiotics and plan to de-escalation Renal; urine out put and renal function reviewed and patient has contraction alkalosis and increase fluid Endorcine: blood glucose is monitored Lines: all lines checked and no evidence of infections Skin: skin care to prevent pressure ulcers per nursing routine care Dispo: ICU Code: Full. Prognosis. fair I spent 40 min of Critical Care time with this patient. It involved decision making of high complexity to assess, manipulate, and support vital organ system failure and/or to prevent further life threatening deterioration of the patient' s condition. The time involved in the performance of separately reportable procedures was not counted toward critical care time.
[2018-12-10 06:58] LABS: Basophils % 0.1 %; Eosinophils % 0.1 %; Hematocrit 34.6 % (37.5-50.1); Hemoglobin 11.2 g/dL (12.9-16.9); Immature Granulocytes % 0.5 % (0-4); Lymphocytes # 1.6 K/mcL (0.6-4.6); Lymphocytes % 14.5 %; Mean Corpuscular HGB Conc 32.4 g/dL (31.6-35.5); Mean Corpuscular Hemoglobin 31.1 pg (28.0-33.3); Mean Corpuscular Volume 96.1 fL (83.0-100.0); Mean Platelet Volume 11.1 fL (9.4-12.4); Monocytes # 0.5 K/mcL (0.0-1.3); Monocytes % 4.7 %; Neutrophils # 8.8 K/mcL (1.6-8.9); Platelet Count 131 K/mcL (140-400); Red Cell Distribution Width 13.2 % (11.5-14.5); Segmented Neutrophils % 80.1 %; White Blood Count 10.9 K/mcL (4.3-11.1)
[2018-12-10] MEDS: Potassium Phosphate 44 MEQ in 0.9 % Sodium Chloride 250 ML IVPB PRN (07:00)
[2018-12-10] MEDS ORDERED: Ringers Solution, Lactated 1,000 ML IVC SCH (08:11)
[2018-12-10] MEDS: Chlorhexidine Rinse 15 ML MOUTHWASH MM SCH ×2 (09:15→20:34)
[2018-12-10] MEDS ORDERED: *HR* Etomidate 20 MG/10 ML AMPUL IVP ONE (09:55)
[2018-12-10] MEDS ORDERED: *HR* Midazolam HCl 5 MG/5 ML VIAL IVP ONE (09:55)
[2018-12-10] MEDS: D5% in 0.45% NACL 1,000 ML IVC SCH ×2 (11:21→19:21)
--- NOTE | 2018-12-10 13:32 | Vascular/[facility] Progress Note ---
Date of Encounter: 12/10/18 Time of Encounter: 13:30 - Assessment and plan (1) PAD (peripheral artery disease) Current Visit: Yes Status: Chronic Patient is postoperative day #3 following aortobifemoral profunda bypass graft for combined abdominal aortic aneurysm, iliac artery aneurysms, and iliofemoral occlusive disease. Patient has known bilateral superficial femoral artery occlusions. Patient is not expected to regain palpable pulses following bypass grafting but should have improved perfusion due to profunda collaterals. Patient had respiratory compromise last night requiring reintubation. He is presently stable on mechanical ventilation. (2) S/P aortobifemoral bypass surgery Current Visit: Yes Status: Acute Aortobifemoral profunda bypass graft remains patent. (3) Metabolic acidosis Current Visit: Yes Status: Resolved Patient's perioperative acidosis is now resolved. (4) Pneumonia Current Visit: Yes Status: Acute Patient had respiratory compromise with severe hypoxemia late last night. This required the patient to be reintubated at approximately midnight. He went on to have a chest x-ray, CT scan of the chest, and bronchoscopy. Patient is now on dual antibiotic therapy and mechanical ventilation. Qualifiers: Pneumonia type: due to unspecified organism Laterality: left Lung location: lower lobe of lung Qualified Code(s): J18.1 - Lobar pneumonia, unspecified organism - Subjective Interval history: Patient is postoperative day #3 following repair of abdominal aortic aneurysm, bilateral iliac artery aneurysm, and aortobifemoral bypass performed a bypass graft. Patient had respiratory decline late last night and approximately midnight required reintubation for's severe hypoxemia. Patient is hemodynamically stable. Chest x-ray revealed a suspected left lower lobe pneumonia. He went on to have a CT scan of the chest. This was negative for pulmonary embolism. Because of the CT scan findings the patient went on to have bronchoscopy earlier this morning. Mucopurulent material was found in the left lower lobe and this was aspirated and cultured. Patient is now on mechanical ventilation and sedated. He remains hemodynamically stable. Intravenous v ancomycin and Zosyn have been initiated for hospital-acquired pneumonia. Vital Signs, Last 4 Hours Temp Pulse Resp BP Pulse Ox 12/10/18 13:00 104 17 119/76 98 12/10/18 12:00 98.1 F 102 22 119/77 100 12/10/18 11:00 106 17 114/75 100 12/10/18 10:00 110 19 111/77 97 - Physical Examination General: Present: Other (Patient is sedated on mechanical ventilation) HEENT: Present: Atraumatic Cardiac: Present: Reg Rate and Rhythm, Other (Sinus tachycardia) Neuro: Present: Other (Patient is sedated) Vascular: Present: Other (Patient has Doppler signals at the ankle.) Abdomen: Present: Soft, Non-tender. Absent: Masses Skin: Present: No rashes noted on visualized skin Results 12/10/18 06:39 12/10/18 04:15 Lab Results, Last 24 hours 12/09/18 12/09/18 12/10/18 22:55 22:55 04:15 WBC 11.7 H Hgb 11.8 L Hct 36.1 L Plt Count 126 L Sodium 144 152 H Potassium 3.9 3.8 Chloride 107 102 Carbon Dioxide 27 30 H BUN 32 H 31 H Creatinine 0.91 0.99 Glucose 184 H 189 H Calcium 8.5 L 8.8 Magnesium 1.9 1.9 Total Bilirubin 0.6 AST 21 ALT 9 Alkaline Phosphatase 37 Troponin I 0.03 12/10/18 06:39 WBC 10.9 Hgb 11.2 L Hct 34.6 L Plt Count 131 L Sodium Potassium Chloride Carbon Dioxide BUN Creatinine Glucose Calcium Magnesium Total Bilirubin AST ALT Alkaline Phosphatase Troponin I - Imaging / Other Tests Chest Xray: report reviewed CT/CTA: report reviewed Other Results: Bronchoscopy Consult Discharge Plan - Plan [facility]errals: [facility] [Primary Care Provider[facility] - 12/17/18 10:00 am Severo Winston MD [Partnered Physician] - 12/29/18 9:45 am
--- NOTE | 2018-12-10 13:44 | Internal Med Progress Note ---
Hospitalist Progress Note - Encounter Date of Encounter: 12/10/18 Time of Encounter: 09:15 - Subjective Interval History: Patient desaturated and had increased work of breathing yesterday in the afternoon. He did not fare well on BiPAP and was eventually intubated. He currently remains sedated and intubated. - Exam Vitals: Temp Pulse Resp BP Pulse Ox 36.7 C 104 17 119/76 98 12/10/18 12:00 12/10/18 13:00 12/10/18 13:00 12/10/18 13:00 12/10/18 13:00 Exam: GENERAL: Sedated and intubated HEENT: PERRLA NECK:No JVD, No lymph nodes. CHEST AND LUNGS: Transmitted sounds heard bilaterally HEART: S1 and S2 normal, no murmurs ABDOMEN: Soft, nontender, no organomegaly SKIN: Normal color, no rahses, no lesions EXTREMITIES: No deformity, no edema, no tenderness, no joint swelling or clubbing NEUROLOGICAL: Sedated - Assessment and Plan (1) S/P aortobifemoral bypass surgery Current Visit: Yes Status: Acute (2) Diabetes mellitus Current Visit: Yes Status: Chronic (3) DVT prophylaxis Current Visit: Yes Status: Acute (4) Acute respiratory failure with hypoxia Current Visit: Yes Status: Acute (5) Pneumonia Current Visit: Yes Status: Acute - Time Spent with Patient Total time spent is greater than 50% in coordination of care (as documented) at patient's floor/unit and/or counseling patient: Internal Medicine: Result - Labs CBC & Chem 7: 12/10/18 06:39 12/10/18 04:15 Labs: Short CBC 12/09/18 12/10/18 Range/Units 22:55 06:39 WBC 11.7 H 10.9 (4.3-11.1) K/mcL Hgb 11.8 L 11.2 L (12.9-16.9) g/dL Hct 36.1 L 34.6 L (37.5-50.1) % Plt Count 126 L 131 L (140-400) K/mcL Neutrophils # 10.1 H 8.8 (1.6-8.9) K/mcL BMP 12/09/18 12/10/18 22:55 04:15 Sodium 144 152 H Potassium 3.9 3.8 Chloride 107 102 Carbon Dioxide 27 30 H BUN 32 H 31 H Creatinine 0.91 0.99 Glucose 184 H 189 H Calcium 8.5 L 8.8 Cardiac Enzymes 12/09/18 Range/Units 22:55 Troponin I 0.03 (< 0.04) ng/mL Liver Function 12/09/18 Range/Units 22:55 Total Bilirubin 0.6 (0.3-1.0) mg/dL AST 21 (13-39) Units/L ALT 9 (7-52) Units/L Alkaline Phosphatase 37 (34-104) Units/L Albumin 2.9 L (3.5-5.7) g/dL - ABG Interpretation ABG results: ABG ABG pH 7.48 pH Units (7.32-7.45) H 12/10/18 05:22 ABG pCO2 42 mmHg (35-45) 12/10/18 05:22 ABG pO2 79 mmHg (85-104) L 12/10/18 05:22 ABG O2 Saturation 96 % (95-98) 12/10/18 05:22 PT/INR, D-dimer PT 15.2 Seconds (9.4-12.1) H 12/07/18 17:15 - Impressions Impressions Chest X-Ray 12/09/18 22:33 IMPRESSION: Left pleural effusion with multifocal left lung airspace disease, likely pneumonia. D/ / Bang Cuellar MD / Bang Cuellar MD Interpreting Provider: Bang Cuellar MD Chest CTA 12/10/18 00:13 IMPRESSION: 1. No scan evidence for pulmonary embolus. 2. Left lower lobe collapse with secretions occluding the left lower lobe airway. Superimposed pneumonia cannot be excluded. 3. Ill-defined nodularity and ground-glass opacities bilaterally are almost certainly infectious or inflammatory. 4. The endotracheal tube terminates just inside the origin of the right mainstem bronchus. The tube should be withdrawn 2 cm. D/ / Bang Cuellar MD / Bang Cuellar MD Interpreting Provider: Bang Cuellar MD Consult Discharge Plan - Plan Referrals: VALERIE BO [Primary Care Provider] - 12/17/18 10:00 am Severo Winston MD [Partnered Physician] - 12/29/18 9:45 am (2) Diabetes mellitus Qualifiers: Qualified Code(s): E11.69 - Type 2 diabetes mellitus with other specified complication
[2018-12-10] MEDS: *HR* Heparin 5,000 UNIT/ML VIAL SQ SCH ×2 (14:06→20:34)
[2018-12-11] MEDS: Piperacillin/Tazobactam 3.375 GM in 0.9 % Sodium Chloride Mini Bag 100 ML IVPB SCH ×3 (00:02→16:04)
[2018-12-11] MEDS: Insulin LISPRO 300 UNITS/3 ML VIAL SQ SCH ×4 (00:03→18:00)
[2018-12-11] MEDS: Artificial Tears SOLN 15 ML BOTTLE BOTH EYES SCH ×6 (00:03→20:20)
[2018-12-11] MEDS: D5% in 0.45% NACL 1,000 ML IVC SCH (03:34)
[2018-12-11 05:10] LABS: ABG Base Excess 5 mEq/L (-2 to 3); ABG HCO3 29 mEq/L (21-27); ABG Oxygen Saturation 98 % (95-98); ABG PCO2 42 mmHg (35-45); ABG PH 7.45 pH Units (7.32-7.45); ABG PO2 97 mmHg (85-104); ABG TCO2 31 mEq/L (20-26); Blood Gas Modality ASSIST CONTROL; Blood Gas PEEP 8 cm H2O; Blood Gas VT 500 cc
[2018-12-11 05:13] LABS: Basophils % 0.1 %; Eosinophils # 0.1 K/mcL (0.0-0.6); Eosinophils % 0.7 %; Hematocrit 29.6 % (37.5-50.1); Hemoglobin 9.7 g/dL (12.9-16.9); Immature Granulocytes % 0.4 % (0-4); Lymphocytes # 1.3 K/mcL (0.6-4.6); Lymphocytes % 16.6 %; Mean Corpuscular HGB Conc 32.8 g/dL (31.6-35.5); Mean Corpuscular Hemoglobin 31.4 pg (28.0-33.3); Mean Corpuscular Volume 95.8 fL (83.0-100.0); Mean Platelet Volume 10.4 fL (9.4-12.4); Monocytes # 0.5 K/mcL (0.0-1.3); Monocytes % 6.1 %; Neutrophils # 5.8 K/mcL (1.6-8.9); Platelet Count 120 K/mcL (140-400); Red Blood Count 3.09 M/mcL (4.19-5.50); Segmented Neutrophils % 76.1 %; White Blood Count 7.6 K/mcL (4.3-11.1)
[2018-12-11 05:15] LABS: VBG Ionized Calcium 1.14 mmol/L (1.15-1.35)
[2018-12-11 05:32] LABS: Phosphorous 1.5 mg/dL (2.7-4.5)
[2018-12-11 05:51] LABS: BUN/Creatinine Ratio 35 (6-26); Blood Urea Nitrogen 28 mg/dL (8-23); Calcium 7.8 mg/dL (8.6-10.3); Carbon Dioxide 28 mEq/L (23-29); Chloride 109 mEq/L (98-107); Glucose 253 mg/dL (70-105); Osmolality,Calculated 308 (280-300); Potassium 3.5 mEq/L (3.5-5.1); Sodium 142 mEq/L (136-145); eGFR For African Americans > 60 (> 60); eGFR For Non-African Americans > 60 (> 60)
[2018-12-11] MEDS: Famotidine 20 MG/2 ML VIAL IVP SCH ×2 (06:12→18:03)
[2018-12-11] MEDS: *HR* Heparin 5,000 UNIT/ML VIAL SQ SCH ×3 (06:13→21:25)
--- NOTE | 2018-12-11 06:52 | Pulmonology Progress Note ---
<Meli Dupree - Last Filed: 12/11/18 07:57> Date of Encounter: 12/11/18 Time of Encounter: 06:52 Assessment and Plan (1) Acute respiratory failure with hypoxia Current Visit: Yes Status: Acute Suspected to be secondary to new pneumonia of the left lower lobe. Seen on CTA chest obtained on 12/10 Patient was empirically started on Vanc and Zosyn Currently intubated and sedated with propofol Switch sedation to precedex ABG on 12/10 was alkalotic with pH of 7.48, with elevated bicarbonate of 31. Vent settings were adjusted, and IV fluid rate was increased to 125 mL/hr. Bronchoscopy performed on 12/10. BAL was sent for culture CPAP trial today MRSA swab negative - vancomycin DC'd Follow for BAL cultures (2) Pneumonia Current Visit: Yes Status: Acute As seen on CTA 12/10 Bronch on 12/10 Treatment as above Qualifiers: Pneumonia type: due to unspecified organism Laterality: left Lung location: lower lobe of lung Qualified Code(s): J18.1 - Lobar pneumonia, unspecified organism (3) Anemia Current Visit: Yes Status: Acute Pt had sharp drop in Hgb from 11.2 to 9.7 overnight Stat CBC ordered and Hgb has decreased to 9.4 No signs of bleeding from sprague Abdomen non-tender Pt is on SQ Heparin Repeat CBC in 6 hours Continue to monitor Qualifiers: Anemia type: unspecified type Qualified Code(s): D64.9 - Anemia, unspecified (4) Metabolic acidosis Current Visit: Yes Status: Resolved Pt became acidotic during surgery likely secondary to poor perfusion 2 units PRBCs, 6.5L LR, and 3 amps of bicarb have been given Most recent ABG demonstrates acidosis at 7.13, pCO2 66, pO2 433 and HCO3 of 22 Initial lactate >10, has decreased to 5.7 Pt to remain intubated following surgery until acidosis corrects Will start the patient on a bicarb drip at 150mls/hr after the 7th liter of LR is finished transfusing Pt hemodynamically stable at this point Continue to closely monitor Repeat ABG at 1730 on day of surgery - 7.27, 46, 111, 21 with base excess correcting to -6 ABG this am shows resolution of metabolic acidosis Extubation this morning was successful Dr. Winston is agreeable with transfer of the patient to as he remained stable throughout the morning (5) S/P aortobifemoral bypass surgery Current Visit: Yes Status: Acute Performed by Dr. Winston Reported pt lost estimated 3L of blood and is overall volume depleted Given 6.5L of LR throughout surgery Transfused 2 units PRBCs in the OR Continue to monitor for signs of hemodilution and blood loss anemia CXR s/p surgery shows ETT and NG tube in correct places without acute abnormalities of the cardiopulmonary system (6) Diabetes mellitus Current Visit: Yes Status: Chronic Pt normally takes metformin at home Q6H Accu-cheks with low dose SSI Qualifiers: Diabetes mellitus type: type 2 Diabetes mellitus senior living insulin use: without senior living use Diabetes mellitus complication status: with other specified complication Qualified Code(s): E11.69 - Type 2 diabetes mellitus with other specified complication (7) HTN (hypertension) Current Visit: Yes Status: Chronic Pt normotensive s/p surgery Continue to monitor and treat as needed Qualifiers: Hypertension type: essential hypertension Qualified Code(s): I10 - Essenti al (primary) hypertension (8) Hypokalemia Current Visit: Yes Status: Resolved Potassium 3.2 post surgery Resolved at 4.1 Likely secondary to volume depletion Replete as needed and continue to monitor (9) Hypocalcemia Current Visit: Yes Status: Acute Ca 7.8 this am Will replenish and continue to monitor (10) Hypomagnesemia Current Visit: Yes Status: Acute Magnesium 1.5 this am Will replenish and continue to monitor (11) DVT prophylaxis Current Visit: Yes Status: Acute EPCDs SQ Heparin Subjective Principal diagnosis: Acute repiratory failure Interval history: Pts CXR shows improvement in his pneumonia. Will CPAP him today to assess if he is ready for extubation. Sedation will be switched from propofol to precedex. Maintenance fluids DC'd. Pts labs show a decreased hemoglobin and he is on Heparin - will repeat CBC to trend. Objective PUL Vital signs: Last Vital Signs Temp 98.1 F 12/11/18 04:00 Pulse 99 12/11/18 06:00 Resp 22 12/11/18 06:00 BP 125/70 12/11/18 06:00 Pulse Ox 99 12/11/18 06:00 General appearance: asleep Eyes: nonicteric Effort: normal Auscultation: bilateral: rhonchi Cardiovascular: regular rate and rhythm Gastrointestinal: soft, non-tender Integumentary: normal Extremities: no edema, pink and warm Musculoskeletal: no deformities pupils equal and round Ventilator Settings Ventilator Settings: Ventilator Settings, Last 8 Hours Ventilator Tidal Volume 500 Setting Ventilator Tidal Volume 500 Setting Ventilator Tidal Volume 500 Setting Ventilator Tidal Volume 500 Setting Ventilator Tidal Volume 500 Setting Ventilator Tidal Volume 500 Setting Ventilator Tidal Volume 500 Setting Ventilator Tidal Volume 500 Setting Ventilator Tidal Volume 500 Setting Ventilator Tidal Volume 500 Setting Ventilator Tidal Volume 500 Setting Ventilator Tidal Volume 500 Setting Ventilator Respiratory Rate 12 Setting Ventilator Respiratory Rate 12 Setting Ventilator Respiratory Rate 12 Setting Ventilator Respiratory Rate 12 Setting Ventilator Respiratory Rate 12 Setting Ventilator Respiratory Rate 12 Setting Ventilator Respiratory Rate 12 Setting Ventilator Respiratory Rate 12 Setting Ventilator Respiratory Rate 12 Setting Ventilator Respiratory Rate 12 Setting Ventilator Respiratory Rate 12 Setting Ventilator Respiratory Rate 12 Setting Actual Respiratory Rate 22 Actual Respiratory Rate 17 Actual Respiratory Rate 18 Actual Respiratory Rate 18 Actual Respiratory Rate 17 Actual Respiratory Rate 17 Actual Respiratory Rate 18 Actual Respiratory Rate 17 Actual Respiratory Rate 16 Actual Respiratory Rate 21 Actual Respiratory Rate 16 Actual Respiratory Rate 18 Positive End Expiratory 8 Pressure Positive End Expiratory 8 Pressure Positive End Expiratory 8 Pressure Positive End Expiratory 8 Pressure Positive End Expiratory 8 Pressure Positive End Expiratory 8 Pressure Positive End Expiratory 8 Pressure Positive End Expiratory 8 Pressure Positive End Expiratory 8 Pressure Positive End Expiratory 8 Pressure Positive End Expiratory 8 Pressure Positive End Expiratory 8 Pressure Peak Inspiratory Airway 24 Pressure Peak Inspiratory Airway 24 Pressure Peak Inspiratory Airway 24 Pressure Peak Inspiratory Airway 25 Pressure Results - Laboratory Findings CBC and BMP: 12/11/18 07:25 12/11/18 05:03 ABG ABG pH 7.45 pH Units (7.32-7.45) 12/11/18 05:08 ABG pCO2 42 mmHg (35-45) 12/11/18 05:08 ABG pO2 97 mmHg (85-104) 12/11/18 05:08 ABG O2 Saturation 98 % (95-98) 12/11/18 05:08 PT/INR, D-dimer PT 15.2 Seconds (9.4-12.1) H 12/07/18 17:15 Abnormal lab findings: Abnormal lab results WBC 11.7 K/mcL (4.3-11.1) H 12/09/18 22:55 RBC 3.09 M/mcL (4.19-5.50) L 12/11/18 05:03 Hgb 9.7 g/dL (12.9-16.9) L D 12/11/18 05:03 Hct 29.6 % (37.5-50.1) L 12/11/18 05:03 Plt Count 120 K/mcL (140-400) L 12/11/18 05:03 Neutrophils # 10.1 K/mcL (1.6-8.9) H 12/09/18 22:55 Monocytes # 1.5 K/mcL (0.0-1.3) H 12/07/18 17:15 PT 15.2 Seconds (9.4-12.1) H 12/07/18 17:15 ABG pH 7.48 pH Units (7.32-7.45) H 12/10/18 05:22 ABG pCO2 48 mmHg (35-45) H 12/07/18 20:47 ABG pO2 79 mmHg (85-104) L 12/10/18 05:22 ABG HCO3 29 mEq/L (21-27) H 12/11/18 05:08 ABG Total CO2 31 mEq/L (20-26) H 12/11/18 05:08 ABG O2 Saturation 94 % (95-98) L 12/10/18 01:42 ABG Base Excess 5 mEq/L (-2 to 3) H 12/11/18 05:08 ABG Hematocrit 31.0 % (37.5-50.1) L 12/07/18 16:10 ABG Chloride 109 mEq/L (98-107) H 12/07/18 15:28 Potassium 3.2 mEq/L (3.5-5.3) L 12/07/18 16:10 Glucose 256 mg/dL (60-95) H 12/07/18 16:10 Sodium 152 mEq/L (136-145) H 12/10/18 04:15 Chloride 109 mEq/L (98-107) H 12/11/18 05:03 Carbon Dioxide 30 mEq/L (23-29) H 12/10/18 04:15 BUN 28 mg/dL (8-23) H 12/11/18 05:03 BUN/Creatinine Ratio 35 (6-26) H 12/11/18 05:03 Glucose 253 mg/dL (70-105) H 12/11/18 05:03 POC Glucose 211 mg/dL (70-99) H 12/10/18 23:18 Calculated Osmolality 308 (280-300) H 12/11/18 05:03 Lactic Acid 5.7 mmol/L (0.5-2.2) H* 12/07/18 20:58 Calcium 7.8 mg/dL (8.6-10.3) L 12/11/18 05:03 Venous Ioniz Calcium 1.14 mmol/L (1.15-1.35) L 12/11/18 05:13 Phosphorus 1.5 mg/dL (2.7-4.5) L 12/11/18 05:03 Magnesium 1.4 mg/dL (1.6-2.6) L 12/08/18 07:30 Creatine Kinase 279 Units/L (30-223) H 12/09/18 22:55 Serum Total Protein 4.9 g/dL (6.4-8.9) L 12/09/18 22:55 Albumin 2.9 g/dL (3.5-5.7) L 12/09/18 22:55 Globulin 2.0 g/dL (2.4-3.5) L 12/09/18 22:55 Arterial Blood Ionized Calcium 1.10 mmol/L (1.15-1.35) L 12/07/18 15:28 Crossmatch See Detail 12/07/18 08:42 - Microbiology Findings Microbiology Findings: Microbiology, Last 48 Hours 12/10/18 Unknown Respiratory Culture - Preliminary Left Lower Lobe Lung 12/10/18 00:33 Blood Culture - Preliminary Peripheral Venipuncture Culture is incubating and being continuously monitored for growth. Final report to follow. 12/10/18 00:33 Blood Culture - Preliminary Peripheral Venipuncture Culture is incubating and being continuously monitored for growth. Final report to follow. - Clinical Findings Intake & Output: Intake & Output 12/10/18 12/10/18 12/11/18 15:59 23:59 07:59 Intake Total 1278 / 3232 1500 / 3232 1200 / 1200 Output Total 500 / 2000 500 / 2000 200 / 200 Balance 778 / 1232 1000 / 1232 1000 / 1000 Weight 70.5 kg Consult Discharge Plan - Plan Referrals: CT,PCP [Primary Care Provider] - 12/17/18 10:00 am Severo Winston MD [Partnered Physician] - 12/29/18 9:45 am <Viet Stewart W - Last Filed: 12/11/18 08:19> Date of Encounter: 12/11/18 Objective PUL Vital signs: Last Vital Signs Temp 98.5 F 12/11/18 07:20 Pulse 87 12/11/18 07:00 Resp 18 12/11/18 07:00 BP 126/72 12/11/18 07:00 Pulse Ox 96 12/11/18 07:00 Ventilator Settings Ventilator Settings: Ventilator Settings, Last 8 Hours Ventilator Tidal Volume 500 Setting Ventilator Tidal Volume 500 Setting Ventilator Tidal Volume 500 Setting Ventilator Tidal Volume 500 Setting Ventilator Tidal Volume 500 Setting Ventilator Tidal Volume 500 Setting Ventilator Tidal Volume 500 Setting Ventilator Tidal Volume 500 Setting Ventilator Tidal Volume 500 Setting Ventilator Tidal Volume 500 Setting Ventilator Tidal Volume 500 Setting Ventilator Respiratory Rate 12 Setting Ventilator Respiratory Rate 12 Setting Ventilator Respiratory Rate 12 Setting Ventilator Respiratory Rate 12 Setting Ventilator Respiratory Rate 12 Setting Ventilator Respiratory Rate 12 Setting Ventilator Respiratory Rate 12 Setting Ventilator Respiratory Rate 12 Setting Ventilator Respiratory Rate 12 Setting Ventilator Respiratory Rate 12 Setting Ventilator Respiratory Rate 12 Setting Actual Respiratory Rate 18 Actual Respiratory Rate 22 Actual Respiratory Rate 17 Actual Respiratory Rate 18 Actual Respiratory Rate 18 Actual Respiratory Rate 17 Actual Respiratory Rate 17 Actual Respiratory Rate 18 Actual Respiratory Rate 17 Actual Respiratory Rate 16 Actual Respiratory Rate 21 Positive End Expiratory 8 Pressure Positive End Expiratory 8 Pressure Positive End Expiratory 8 Pressure Positive End Expiratory 8 Pressure Positive End Expiratory 8 Pressure Positive End Expiratory 8 Pressure Positive End Expiratory 8 Pressure Positive End Expiratory 8 Pressure Positive End Expiratory 8 Pressure Positive End Expiratory 8 Pressure Positive End Expiratory 8 Pressure Peak Inspiratory Airway 24 Pressure Peak Inspiratory Airway 24 Pressure Peak Inspiratory Airway 24 Pressure Peak Inspiratory Airway 25 Pressure Results - Laboratory Findings CBC and BMP: 12/11/18 07:25 12/11/18 05:03 ABG ABG pH 7.45 pH Units (7.32-7.45) 12/11/18 05:08 ABG pCO2 42 mmHg (35-45) 12/11/18 05:08 ABG pO2 97 mmHg (85-104) 12/11/18 05:08 ABG O2 Saturation 98 % (95-98) 12/11/18 05:08 PT/INR, D-dimer PT 15.2 Seconds (9.4-12.1) H 12/07/18 17:15 Abnormal lab findings: Abnormal lab results WBC 11.7 K/mcL (4.3-11.1) H 12/09/18 22:55 RBC 3.10 M/mcL (4.19-5.50) L 12/11/18 07:25 Hgb 9.4 g/dL (12.9-16.9) L 12/11/18 07:25 Hct 30.0 % (37.5-50.1) L 12/11/18 07:25 MCHC 31.3 g/dL (31.6-35.5) L 12/11/18 07:25 Plt Count 116 K/mcL (140-400) L 12/11/18 07:25 Neutrophils # 10.1 K/mcL (1.6-8.9) H 12/09/18 22:55 Monocytes # 1.5 K/mcL (0.0-1.3) H 12/07/18 17:15 PT 15.2 Seconds (9.4-12.1) H 12/07/18 17:15 ABG pH 7.48 pH Units (7.32-7.45) H 12/10/18 05:22 ABG pCO2 48 mmHg (35-45) H 12/07/18 20:47 ABG pO2 79 mmHg (85-104) L 12/10/18 05:22 ABG HCO3 29 mEq/L (21-27) H 12/11/18 05:08 ABG Total CO2 31 mEq/L (20-26) H 12/11/18 05:08 ABG O2 Saturation 94 % (95-98) L 12/10/18 01:42 ABG Base Excess 5 mEq/L (-2 to 3) H 12/11/18 05:08 ABG Hematocrit 31.0 % (37.5-50.1) L 12/07/18 16:10 ABG Chloride 109 mEq/L (98-107) H 12/07/18 15:28 Potassium 3.2 mEq/L (3.5-5.3) L 12/07/18 16:10 Glucose 256 mg/dL (60-95) H 12/07/18 16:10 Sodium 152 mEq/L (136-145) H 12/10/18 04:15 Chloride 109 mEq/L (98-107) H 12/11/18 05:03 Carbon Dioxide 30 mEq/L (23-29) H 12/10/18 04:15 BUN 28 mg/dL (8-23) H 12/11/18 05:03 BUN/Creatinine Ratio 35 (6-26) H 12/11/18 05:03 Glucose 253 mg/dL (70-105) H 12/11/18 05:03 POC Glucose 211 mg/dL (70-99) H 12/10/18 23:18 Calculated Osmolality 308 (280-300) H 12/11/18 05:03 Lactic Acid 5.7 mmol/L (0.5-2.2) H* 12/07/18 20:58 Calcium 7.8 mg/dL (8.6-10.3) L 12/11/18 05:03 Venous Ioniz Calcium 1.14 mmol/L (1.15-1.35) L 12/11/18 05:13 Phosphorus 1.5 mg/dL (2.7-4.5) L 12/11/18 05:03 Magnesium 1.4 mg/dL (1.6-2.6) L 12/08/18 07:30 Creatine Kinase 279 Units/L (30-223) H 12/09/18 22:55 Serum Total Protein 4.9 g/dL (6.4-8.9) L 12/09/18 22:55 Albumin 2.9 g/dL (3.5-5.7) L 12/09/18 22:55 Globulin 2.0 g/dL (2.4-3.5) L 12/09/18 22:55 Arterial Blood Ionized Calcium 1.10 mmol/L (1.15-1.35) L 12/07/18 15:28 Crossmatch See Detail 12/07/18 08:42 - Microbiology Findings Microbiology Findings: Microbiology, Last 48 Hours 12/10/18 Unknown Respiratory Culture - Preliminary Left Lower Lobe Lung 12/10/18 00:33 Blood Culture - Preliminary Peripheral Venipuncture Culture is incubating and being continuously monitored for growth. Final report to follow. 12/10/18 00:33 Blood Culture - Preliminary Peripheral Venipuncture Culture is incubating and being continuously monitored for growth. Final report to follow. - Clinical Findings Intake & Output: Intake & Output 12/10/18 12/11/18 12/11/18 23:59 07:59 15:59 Intake Total 1500 / 3232 1200 / 1200 Output Total 500 / 2000 350 / 350 Balance 1000 / 1232 850 / 850 Weight 70.5 kg - Attending Attestation I examined this patient and my medical decision-making was reviewed with the Resident Physician. I agree with the documented findings, disposition and treatment plan as described except to the extent set forth below. We independent ly had [id number] contact with the patient I spent 32min of Critical Care time with this patient. It involved decision making of high complexity to assess, manipulate, and support vital organ system failure and/or to prevent further life threatening deterioration of the patient's condition. The time involved in the performance of separately reportable procedures was not counted toward critical care time. Patient seen and examined at bedside Labs, radiology, chart personally reviewed. Management was reviewed during multidisciplinary critical care rounds. CONVERTER SKIMMER: Patient is sedated on vent well obtained spontaneous breathing trial a day stop propofol switch to Precedex and fentanyl as needed for pain control he is overly sedated today we will transition from this level of sedation to goal Bhavna 2-3 Pulm: Acute hypoxic respiratory failure secondary to pneumonia he is on the vent with acceptable gas exchange day he failed the CPAP trial likely combination of hydrostatic pulmonary edema and pneumonia. Trial diuretic today and decrease sedation continue prophylaxis against ventilator associated pneumonia Cards: Blood pressure monitored and currently stable he is status post aorto bifemoral bypass surgery appreciate vascular surgery recommendations GI: GI prophylaxis given while on vent Nutrition: Continue enteral nutrition per dietary recommendations Renal: UOP Monitored, Cont to Trend sCr and monitor Electrolytes. ID: He remains on antibiotics for hospital associated pneumonia plan a de- escalate today from vancomycin and Zosyn to Zosyn monotherapy white count has normalized Heme/Onc: Heparin drip with drop in H&H overnight but no overt evidence of bleeding rechecking hemoglobin appears stable we will continue to trend this every 6 hours may need to stop heparin if further drop we will discuss with vascular surgery Endo: Glucose Monitored Integ/MSK: Skin Care per routine ICU Nursing Protocol to prevent ulcers. Lines: All lines examined without evidence of infection : Dispo: Monitor in ICU CODE: Full code prognosis is fair
[2018-12-11 07:41] LABS: Basophils % 0.1 %; Eosinophils % 0.6 %; Hemoglobin 9.4 g/dL (12.9-16.9); Immature Granulocytes % 0.3 % (0-4); Lymphocytes % 14.7 %; Mean Corpuscular HGB Conc 31.3 g/dL (31.6-35.5); Mean Corpuscular Hemoglobin 30.3 pg (28.0-33.3); Mean Corpuscular Volume 96.8 fL (83.0-100.0); Mean Platelet Volume 10.3 fL (9.4-12.4); Monocytes # 0.4 K/mcL (0.0-1.3); Monocytes % 6.2 %; Neutrophils # 5.5 K/mcL (1.6-8.9); Platelet Count 116 K/mcL (140-400); Red Cell Distribution Width 12.9 % (11.5-14.5); Segmented Neutrophils % 78.1 %; White Blood Count 7.1 K/mcL (4.3-11.1)
[2018-12-11] MEDS: Dexmedetomidine HCl 400 MCG/100 ML MLS IVC SCH (08:58)
[2018-12-11] MEDS: Chlorhexidine Rinse 15 ML MOUTHWASH MM SCH ×2 (08:59→20:20)
[2018-12-11] MEDS: Pantoprazole 40 MG VIAL IVP SCH (08:59)
--- NOTE | 2018-12-11 09:57 | Internal Med Progress Note ---
Hospitalist Progress Note - Encounter Date of Encounter: 12/11/18 Time of Encounter: 09:57 - Subjective Interval History: Patient failed CPAP trial this morning and remains intubated - Exam Vitals: Temp Pulse Resp BP Pulse Ox 36.9 C 86 16 123/71 99 12/11/18 07:20 12/11/18 09:00 12/11/18 09:23 12/11/18 09:23 12/11/18 09:23 Exam: GENERAL: Sedated and intubated HEENT: PERRLA NECK:No JVD, No lymph nodes. CHEST AND LUNGS: Transmitted sounds heard bilaterally HEART: S1 and S2 normal, no murmurs ABDOMEN: Soft, nontender, no organomegaly SKIN: Normal color, no rahses, no lesions EXTREMITIES: No deformity, no edema, no tenderness, no joint swelling or clubbing NEUROLOGICAL: Sedated - Assessment and Plan (1) S/P aortobifemoral bypass surgery Current Visit: Yes Status: Acute Assessment and Plan: Surgical site looks clean and dry. Vascular surgery following and do not believe patient needs more surgical intervention at this time. (2) Diabetes mellitus Current Visit: Yes Status: Chronic Assessment and Plan: Accu-Checks Continue sliding scale (3) DVT prophylaxis Current Visit: Yes Status: Acute (4) Acute respiratory failure with hypoxia Current Visit: Yes Status: Acute Assessment and Plan: Patient remains intubated He failed CPAP trial this morning Pulmocritical care on board (5) Pneumonia Current Visit: Yes Status: Acute Assessment and Plan: Continue Zosyn DVT Prophylaxis: SQ Heparin - Summary of Assessment and Plan Summary of Assessment and Plan: Patient is a 73-year-old man with a past medical history of CAD with CABG in 1999, diabetes mellitus, hypertension, hyperlipidemia, we recently had an aortobifemoral bypass graft performed. Intraoperative experience about 3 L of blood loss for which she had to be transfused 2 units of packed red blood cells. He also had severe metabolic acidosis that required him being admitted to the ICU postoperatively with an extended time of intubation. He was extubated but has been reintubated again. - Time Spent with Patient Total time spent is greater than 50% in coordination of care (as documented) at patient's floor/unit and/or counseling patient: Internal Medicine: Result - Labs CBC & Chem 7: 12/11/18 13:23 12/11/18 05:03 Labs: Short CBC 07/20/19 07/20/19 Range/Units 05:03 07:25 WBC 7.6 7.1 (4.3-11.1) K/mcL Hgb 9.7 L D 9.4 L (12.9-16.9) g/dL Hct 29.6 L 30.0 L (37.5-50.1) % Plt Count 120 L 116 L (140-400) K/mcL Neutrophils # 5.8 5.5 (1.6-8.9) K/mcL BMP 12/10/18 12/11/18 17:34 05:03 Sodium 142 Potassium 3.8 3.5 Chloride 109 H Carbon Dioxide 28 BUN 28 H Creatinine 0.79 Glucose 253 H Calcium 7.8 L - ABG Interpretation ABG results: ABG ABG pH 7.45 pH Units (7.32-7.45) 12/11/18 05:08 ABG pCO2 42 mmHg (35-45) 12/11/18 05:08 ABG pO2 97 mmHg (85-104) 12/11/18 05:08 ABG O2 Saturation 98 % (95-98) 12/11/18 05:08 PT/INR, D-dimer PT 15.2 Seconds (9.4-12.1) H 12/07/18 17:15 - Impressions Impressions Chest X-Ray 12/11/18 06:39 IMPRESSION: Interval improvement in left-sided effusion and airspace disease. 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
--- NOTE | 2018-12-11 10:17 | Vascular/[facility] Progress Note ---
Date of Encounter: 12/11/18 Time of Encounter: 10:12 Discussion with patient/family: Assessment: Satisfactory progress status post aortobifemoral bypass grafting with bilateral femoral endarterectomies and profundoplasty. Postoperative complication of pneumonia and subsequent respiratory failure, being treated aggressively per Critical Care Medicine. The patient does show a mild drop in hemoglobin today, which most probablly is dilutional. We will continue to monitor. White count has returned to normal. Plan: No further intervention surgically is anticipated at this point in time. Eventually, the patient may or may not need unilateral or bilateral femoropopliteal bypasses, but that is yet to be determined depending upon the patient's symptomatology. We will continue to remain available, and appreciate all [employer] treatments rendered. - Subjective Interval history: This 73-year-old male is seen in follow-up today status post aortobifemoral bypass graft. Postoperatively, the patient initially did well, but subsequently did have respiratory distress and was subsequently intubated 2 days ago. Patient has done reasonably well on the ventilator up to this point in time. No additional problems are noted at this time. Vital Signs, Last 4 Hours Temp Pulse Resp BP Pulse Ox 12/11/18 09:23 16 123/71 99 12/11/18 09:00 86 18 123/71 99 12/11/18 08:00 87 18 126/73 96 12/11/18 07:21 17 126/73 99 12/11/18 07:20 98.5 F 12/11/18 07:00 87 18 126/72 96 Exam: 73-year-old male in both acute and chronic distress. He is intubated, sedated, and not responsive at this point in time. There was an attempt earlier this morning to allow him to wake up a little bit more, but apparently he became very anxious and had some saturation problems. He was sedated again and has remained stable on the ventilator since that point in time. As noted the patient is intubated, has a nasogastric tube which is having nutritional supplementation instilled and appears stable. He has a [place] catheter in place and has SCDs in place. The abdomen is soft, mildly distended, and mildly tympanitic. He does have bowel sounds. Dressing is removed and the incision is clean, dry, intact, and well approximated. There is no drainage or erythema noted. A new dry dressing is applied. Both groin incisions are exposed by having the dressing removed. Both incisions are clean, dry, intact, and well approximated. There is no erythema or induration. There is no drai nage and no evidence of infection. Graft pulses are easily palpable at this level. A new dressing is applied. Distally, Doppler pulses are difficult to discern, but both feet are warm to touch. It is noted that both SFAs are occluded, and distal pulses have always been difficult to discern. No evidence of ischemia is noted. The patient is not responsive in order to show neurologic function. Results 12/11/18 07:25 12/11/18 05:03 Lab Results, Last 24 hours 12/10/18 12/10/18 12/11/18 17:34 17:34 05:03 WBC 7.6 Hgb 9.7 L D Hct 29.6 L Plt Count 120 L Sodium Potassium 3.8 Chloride Carbon Dioxide BUN Creatinine Glucose Calcium Magnesium 2.1 12/11/18 12/11/18 12/11/18 05:03 05:03 07:25 WBC 7.1 Hgb 9.4 L Hct 30.0 L Plt Count 116 L Sodium 142 Potassium 3.5 Chloride 109 H Carbon Dioxide 28 BUN 28 H Creatinine 0.79 Glucose 253 H Calcium 7.8 L Magnesium 2.0 Consult Discharge Plan - Plan [facility]errals: [facility] [Primary Care Provider] - 12/17/18 10:00 am Severo Winston MD [Partnered Physician] - 12/29/18 9:45 am
[2018-12-11] MEDS ORDERED: Furosemide 20 MG/2 ML VIAL IVP ONE (13:30)
[2018-12-11 13:38] LABS: Hemoglobin 9.2 g/dL (12.9-16.9); Red Blood Count 2.97 M/mcL (4.19-5.50)
[2018-12-11 13:40] LABS: Basophils % 0.1 %; Eosinophils # 0.1 K/mcL (0.0-0.6); Eosinophils % 0.6 %; Hematocrit 28.1 % (37.5-50.1); Immature Granulocytes % 0.6 % (0-4); Immature Platelets 7.7 % (1.1-6.1); Lymphocytes # 1.3 K/mcL (0.6-4.6); Lymphocytes % 16.9 %; Mean Corpuscular HGB Conc 32.7 g/dL (31.6-35.5); Mean Corpuscular Volume 94.6 fL (83.0-100.0); Mean Platelet Volume 11.4 fL (9.4-12.4); Monocytes # 0.5 K/mcL (0.0-1.3); Monocytes % 6.4 %; Red Cell Distribution Width 12.7 % (11.5-14.5); Segmented Neutrophils % 75.4 %; White Blood Count 7.9 K/mcL (4.3-11.1)
[2018-12-11] MEDS: Potassium Phosphate 44 MEQ in 0.9 % Sodium Chloride 250 ML IVPB PRN (13:43)
[2018-12-11 13:59] LABS: Platelet Count 79 K/mcL (140-400)
[2018-12-12] MEDS: Dexmedetomidine HCl 400 MCG/100 ML MLS IVC SCH (00:13)
[2018-12-12] MEDS: Piperacillin/Tazobactam 3.375 GM in 0.9 % Sodium Chloride Mini Bag 100 ML IVPB SCH ×4 (00:14→23:19)
[2018-12-12] MEDS: Artificial Tears SOLN 15 ML BOTTLE BOTH EYES SCH ×5 (00:30→15:41)
[2018-12-12] MEDS: Insulin LISPRO 300 UNITS/3 ML VIAL SQ SCH ×4 (00:30→18:14)
[2018-12-12 04:25] LABS: VBG Ionized Calcium 1.15 mmol/L (1.15-1.35)
[2018-12-12 04:31] LABS: Basophils % 0.1 %; Eosinophils # 0.2 K/mcL (0.0-0.6); Eosinophils % 2.5 %; Hemoglobin 9.2 g/dL (12.9-16.9); Immature Granulocytes % 0.7 % (0-4); Lymphocytes % 13.6 %; Mean Corpuscular HGB Conc 31.7 g/dL (31.6-35.5); Mean Corpuscular Hemoglobin 30.7 pg (28.0-33.3); Mean Corpuscular Volume 96.7 fL (83.0-100.0); Mean Platelet Volume 11.4 fL (9.4-12.4); Monocytes # 0.4 K/mcL (0.0-1.3); Monocytes % 5.8 %; Neutrophils # 5.9 K/mcL (1.6-8.9); Platelet Count 118 K/mcL (140-400); Red Cell Distribution Width 12.6 % (11.5-14.5); Segmented Neutrophils % 77.3 %; White Blood Count 7.7 K/mcL (4.3-11.1)
[2018-12-12 05:15] LABS: ABG Base Excess 4 mEq/L (-2 to 3); ABG HCO3 27 mEq/L (21-27); ABG Oxygen Saturation 95 % (95-98); ABG PCO2 38 mmHg (35-45); ABG PH 7.47 pH Units (7.32-7.45); ABG PO2 68 mmHg (85-104); ABG TCO2 29 mEq/L (20-26); Blood Gas Modality ASSIST CONTROL; Blood Gas PEEP 8 cm H2O; Blood Gas VT 500 cc
[2018-12-12] MEDS: *HR* Heparin 5,000 UNIT/ML VIAL SQ SCH ×3 (05:34→23:19)
[2018-12-12] MEDS: Famotidine 20 MG/2 ML VIAL IVP SCH ×2 (05:34→18:21)
[2018-12-12] MEDS: Potassium Phosphate 44 MEQ in 0.9 % Sodium Chloride 250 ML IVPB PRN (05:35)
[2018-12-12 06:29] LABS: BUN/Creatinine Ratio 42 (6-26); Blood Urea Nitrogen 33 mg/dL (8-23); Calcium 7.8 mg/dL (8.6-10.3); Carbon Dioxide 27 mEq/L (23-29); Chloride 110 mEq/L (98-107); Glucose 213 mg/dL (70-105); Osmolality,Calculated 310 (280-300); Potassium 4.1 mEq/L (3.5-5.1); Sodium 143 mEq/L (136-145); eGFR For African Americans > 60 (> 60); eGFR For Non-African Americans > 60 (> 60)
--- NOTE | 2018-12-12 06:38 | Pulmonology Progress Note ---
<TaniyabayronViet hanson W - Last Filed: 12/12/18 08:13> Date of Encounter: 12/12/18 Objective PUL Vital signs: Last Vital Signs Temp 98.7 F 12/12/18 04:00 Pulse 68 12/12/18 06:00 Resp 28 12/12/18 07:23 BP 108/65 12/12/18 06:00 Pulse Ox 98 12/12/18 06:00 Ventilator Settings Ventilator Settings: Ventilator Settings, Last 8 Hours Ventilator Tidal Volume 500 Setting Ventilator Tidal Volume 500 Setting Ventilator Tidal Volume 500 Setting Ventilator Tidal Volume 500 Setting Ventilator Tidal Volume 500 Setting Ventilator Tidal Volume 500 Setting Ventilator Tidal Volume 500 Setting Ventilator Tidal Volume 500 Setting Ventilator Tidal Volume 500 Setting Ventilator Respiratory Rate 12 Setting Ventilator Respiratory Rate 12 Setting Ventilator Respiratory Rate 12 Setting Ventilator Respiratory Rate 12 Setting Ventilator Respiratory Rate 12 Setting Ventilator Respiratory Rate 12 Setting Ventilator Respiratory Rate 12 Setting Ventilator Respiratory Rate 12 Setting Ventilator Respiratory Rate 12 Setting Actual Respiratory Rate 17 Actual Respiratory Rate 18 Actual Respiratory Rate 23 Actual Respiratory Rate 21 Actual Respiratory Rate 20 Actual Respiratory Rate 21 Actual Respiratory Rate 19 Actual Respiratory Rate 21 Positive End Expiratory 3 Pressure Positive End Expiratory 5 Pressure Positive End Expiratory 3 Pressure Positive End Expiratory 8 Pressure Positive End Expiratory 8 Pressure Positive End Expiratory 8 Pressure Positive End Expiratory 8 Pressure Positive End Expiratory 8 Pressure Positive End Expiratory 8 Pressure Peak Inspiratory Airway 22 Pressure Peak Inspiratory Airway 23 Pressure Peak Inspiratory Airway 22 Pressure Peak Inspiratory Airway 22 Pressure Peak Inspiratory Airway 21 Pressure Peak Inspiratory Airway 23 Pressure Peak Inspiratory Airway 22 Pressure Peak Inspiratory Airway 23 Pressure Results - Laboratory Findings CBC and BMP: 12/12/18 04:02 12/12/18 04:02 ABG ABG pH 7.47 pH Units (7.32-7.45) H 12/12/18 05:10 ABG pCO2 38 mmHg (35-45) 12/12/18 05:10 ABG pO2 68 mmHg (85-104) L 12/12/18 05:10 ABG O2 Saturation 95 % (95-98) 12/12/18 05:10 PT/INR, D-dimer PT 15.2 Seconds (9.4-12.1) H 12/07/18 17:15 Abnormal lab findings: Abnormal lab results WBC 11.7 K/mcL (4.3-11.1) H 12/09/18 22:55 RBC 3.00 M/mcL (4.19-5.50) L 12/12/18 04:02 Hgb 9.2 g/dL (12.9-16.9) L 12/12/18 04:02 Hct 29.0 % (37.5-50.1) L 12/12/18 04:02 MCHC 31.3 g/dL (31.6-35.5) L 12/11/18 07:25 Plt Count 118 K/mcL (140-400) L 12/12/18 04:02 Neutrophils # 10.1 K/mcL (1.6-8.9) H 12/09/18 22:55 Monocytes # 1.5 K/mcL (0.0-1.3) H 12/07/18 17:15 Immature Plt Fraction 7.7 % (1.1-6.1) H 12/11/18 13:23 PT 15.2 Seconds (9.4-12.1) H 12/07/18 17:15 ABG pH 7.47 pH Units (7.32-7.45) H 12/12/18 05:10 ABG pCO2 48 mmHg (35-45) H 12/07/18 20:47 ABG pO2 68 mmHg (85-104) L 12/12/18 05:10 ABG HCO3 29 mEq/L (21-27) H 12/11/18 05:08 ABG Total CO2 29 mEq/L (20-26) H 12/12/18 05:10 ABG O2 Saturation 94 % (95-98) L 12/10/18 01:42 ABG Base Excess 4 mEq/L (-2 to 3) H 12/12/18 05:10 ABG Hematocrit 31.0 % (37.5-50.1) L 12/07/18 16:10 ABG Chloride 109 mEq/L (98-107) H 12/07/18 15:28 Potassium 3.2 mEq/L (3.5-5.3) L 12/07/18 16:10 Glucose 256 mg/dL (60-95) H 12/07/18 16:10 Sodium 152 mEq/L (136-145) H 12/10/18 04:15 Chloride 110 mEq/L (98-107) H 12/12/18 04:02 Carbon Dioxide 30 mEq/L (23-29) H 12/10/18 04:15 BUN 33 mg/dL (8-23) H 12/12/18 04:02 BUN/Creatinine Ratio 42 (6-26) H 12/12/18 04:02 Glucose 213 mg/dL (70-105) H 12/12/18 04:02 POC Glucose 208 mg/dL (70-99) H 12/11/18 23:22 Calculated Osmolality 310 (280-300) H 12/12/18 04:02 Lactic Acid 5.7 mmol/L (0.5-2.2) H* 12/07/18 20:58 Calcium 7.8 mg/dL (8.6-10.3) L 12/12/18 04:02 Venous Ioniz Calcium 1.14 mmol/L (1.15-1.35) L 12/11/18 05:13 Phosphorus 2.0 mg/dL (2.7-4.5) L 12/12/18 04:02 Magnesium 1.4 mg/dL (1.6-2.6) L 12/08/18 07:30 Creatine Kinase 279 Units/L (30-223) H 12/09/18 22:55 Serum Total Protein 4.9 g/dL (6.4-8.9) L 12/09/18 22:55 Albumin 2.9 g/dL (3.5-5.7) L 12/09/18 22:55 Globulin 2.0 g/dL (2.4-3.5) L 12/09/18 22:55 Arterial Blood Ionized Calcium 1.10 mmol/L (1.15-1.35) L 12/07/18 15:28 Crossmatch See Detail 12/07/18 08:42 - Microbiology Findings Microbiology Findings: Microbiology, Last 48 Hours 12/10/18 Unknown Respiratory Culture - Preliminary Left Lower Lobe Lung 12/10/18 00:33 Blood Culture - Preliminary Peripheral Venipuncture Culture is incubating and being continuously monitored for growth. Final report to follow. 12/10/18 00:33 Blood Culture - Preliminary Peripheral Venipuncture Culture is incubating and being continuously monitored for growth. Final report to follow. - Clinical Findings Intake & Output: Intake & Output 12/11/18 12/12/18 12/12/18 23:59 07:59 15:59 Intake Total 390 / 3240 469 / 469 Output Total 200 / 1300 300 / 300 Balance 190 / 1940 169 / 169 Weight 72.7 kg Consult Discharge Plan - Plan [facility]: [facility] [Primary Care Provider] - 12/17/18 10:00 am Severo Winston MD [Partnered Physician] - 12/29/18 9:45 am - Attending Attestation I examined this patient and my medical decision-making was reviewed with the Resident Physician. I agree with the documented findings, disposition and treatment plan as described except to the extent set forth below. We independently had [id number] contact with the patient Patient seen and examined at bedside Labs, radiology, chart personally reviewed. Management was reviewed during multidisciplinary critical care rounds. CARDIOVASCULAR LAB DIRECTOR: Awake and alert no deficits Pulm: He is was able to be successfully liberated from the vent today his respiratory failure complicated by hospital associated pneumonia planned a complete extubation to BiPAP and wean as tolerated Cards: Blood pressure monitored and stable he is status post bifemoral popliteal graft appreciate vascular surgery following GI: Once liberated from the vent we will stop PPI Nutrition: Nothing by mouth for now once tolerating nasal cannula can advance diet if cleared from surgical point of view Renal: UOP Monitored, Cont to Trend sCr and monitor Electrolytes. ID: He is on antibiotics for hospital associated pneumonia Heme/Onc: Is on heparin infusion counts are stable Endo: Glucose Monitored Integ/MSK: Skin Care per routine ICU Nursing Protocol to prevent ulcers. Lines: All lines examined without evidence of infection : Dispo: Monitor in ICU postextubation CODE: Full prognosis good <Meli Dupree R - Last Filed: 12/12/18 09:39> Date of Encounter: 12/12/18 Time of Encounter: 06:37 Assessment and Plan (1) Acute respiratory failure with hypoxia Current Visit: Yes Status: Acute Suspected to be secondary to new pneumonia of the left lower lobe. Seen on CTA chest obtained on 12/10 Patient was empirically started on Vanc and Zosyn Currently intubated and sedated with propofol Switch sedation to precedex ABG on 12/10 was alkalotic with pH of 7.48, with elevated bicarbonate of 31. Vent settings were adjusted, and IV fluid rate was increased to 125 mL/hr. Bronchoscopy performed on 12/10. BAL was sent for culture Extubation today MRSA swab negative - vancomycin DC'd Follow for BAL cultures CXR 12/12 shows worsening left sided infiltrate when compared to films yesterday (2) Pneumonia Current Visit: Yes Status: Acute As seen on CTA 12/10 Bronch on 12/10 Treatment as above Qualifiers: Pneumonia type: due to unspecified organism Laterality: left Lung location: lower lobe of lung Qualified Code(s): J18.1 - Lobar pneumonia, unspecified organism (3) Anemia Current Visit: Yes Status: Acute Pt had sharp drop in Hgb from 11.2 to 9.7 overnight Stat CBC ordered and Hgb has decreased to 9.4 Stable at 9.2 this am No signs of bleeding from sprague Abdomen non-tender Pt is on SQ Heparin Continue to monitor Qualifiers: Anemia type: unspecified type Qualified Code(s): D64.9 - Anemia, unspecified (4) Metabolic acidosis Current Visit: Yes Status: Resolved Pt became acidotic during surgery likely secondary to poor perfusion 2 units PRBCs, 6.5L LR, and 3 amps of bicarb have been given Most recent ABG demonstrates acidosis at 7.13, pCO2 66, pO2 433 and HCO3 of 22 Initial lactate >10, has decreased to 5.7 Pt to remain intubated following surgery until acidosis corrects Will start the patient on a bicarb drip at 150mls/hr after the 7th liter of LR is finished transfusing Pt hemodynamically stable at this point Continue to closely monitor Repeat ABG at 1730 on day of surgery - 7.27, 46, 111, 21 with base excess correcting to -6 ABG this am shows resolution of metabolic acidosis Extubation this morning was successful Dr. Winston is agreeable with transfer of the patient to as he remained stable throughout the morning (5) S/P aortobifemoral bypass surgery Current Visit: Yes Status: Acute Performed by Dr. Winston Reported pt lost estimated 3L of blood and is overall volume depleted Given 6.5L of LR throughout surgery Transfused 2 units PRBCs in the OR Continue to monitor for signs of hemodilution and blood loss anemia CXR s/p surgery shows ETT and NG tube in correct places without acute abnormalities of the cardiopulmonary system (6) Diabetes mellitus Current Visit: Yes Status: Chronic Pt normally takes metformin at home Q6H Accu-cheks with low dose SSI Qualifiers: Diabetes mellitus type: type 2 Diabetes mellitus long-term insulin use: without long-term use Diabetes mellitus complication status: with other specified complication Qualified Code(s): E11.69 - Type 2 diabetes mellitus with other specified complication (7) HTN (hypertension) Current Visit: Yes Status: Chronic Pt normotensive s/p surgery Continue to monitor and treat as needed Qualifiers: Hypertension type: essential hypertension Qualified Code(s): I10 - Essential (primary) hypertension (8) Hypophosphatemia Current Visit: Yes Status: Acute Phos 2.0 today Will replete with IV and oral phosphate Continue to monitor and replete as needed (9) Hypokalemia Current Visit: Yes Status: Resolved Potassium 3.2 post surgery Resolved at 4.1 Likely secondary to volume depletion Replete as needed and continue to monitor (10) Hypocalcemia Current Visit: Yes Status: Acute Ca 7.8 this am Will replenish and continue to monitor (11) Hypomagnesemia Current Visit: Yes Status: Acute Magnesium 2.0 this am Will continue to monitor (12) DVT prophylaxis Current Visit: Yes Status: Acute EPCDs SQ Heparin Subjective Principal diagnosis: Acute repiratory failure Interval history: Pts CXR shows worsening of the left sided infiltrate. Pt is alert and able to follow commands, he nods his head when asked if he is ready to get his ETT out. Will attempt extubation today as his breathing has improved. Phosphorus remains low at 2 so will replete and continue to replace as needed. Patient has tolerated extubation this morning and we will transfer the patient to [facility]. Objective PUL Vital signs: Last Vital Signs Temp 98.7 F 12/12/18 04:00 Pulse 68 12/12/18 06:00 Resp 20 12/12/18 06:00 BP 108/65 12/12/18 06:00 Pulse Ox 98 12/12/18 06:00 General appearance: no acute distress, alert Eyes: nonicteric Auscultation: left: rhonchi, bilateral: diminished breath sounds Cardiovascular: regular rate and rhythm Gastrointestinal: soft, non-tender Integumentary: normal Extremities: no edema, pink and warm Musculoskeletal: no deformities normal mental status, non-focal exam, pupils equal and round mood appropriate, affect normal Ventilator Settings Ventilator Settings: Ventilator Settings, Last 8 Hours Ventilator Tidal Volume 500 Setting Ventilator Tidal Volume 500 Setting Ventilator Tidal Volume 500 Setting Ventilator Tidal Volume 500 Setting Ventilator Tidal Volume 500 Setting Ventilator Tidal Volume 500 Setting Ventilator Tidal Volume 500 Setting Ventilator Tidal Volume 500 Setting Ventilator Tidal Volume 500 Setting Ventilator Tidal Volume 500 Setting Ventilator Tidal Volume 500 Setting Ventilator Respiratory Rate 12 Setting Ventilator Respiratory Rate 12 Setting Ventilator Respiratory Rate 12 Setting Ventilator Respiratory Rate 12 Setting Ventilator Respiratory Rate 12 Setting Ventilator Respiratory Rate 12 Setting Ventilator Respiratory Rate 12 Setting Ventilator Respiratory Rate 12 Setting Ventilator Respiratory Rate 12 Setting Ventilator Respiratory Rate 12 Setting Ventilator Respiratory Rate 12 Setting Actual Respiratory Rate 17 Actual Respiratory Rate 18 Actual Respiratory Rate 23 Actual Respiratory Rate 21 Actual Respiratory Rate 20 Actual Respiratory Rate 21 Actual Respiratory Rate 19 Actual Respiratory Rate 21 Actual Respiratory Rate 17 Actual Respiratory Rate 22 Positive End Expiratory 3 Pressure Positive End Expiratory 5 Pressure Positive End Expiratory 3 Pressure Positive End Expiratory 8 Pressure Positive End Expiratory 8 Pressure Positive End Expiratory 8 Pressure Positive End Expiratory 8 Pressure Positive End Expiratory 8 Pressure Positive End Expiratory 8 Pressure Positive End Expiratory 8 Pressure Positive End Expiratory 8 Pressure Peak Inspiratory Airway 22 Pressure Peak Inspiratory Airway 23 Pressure Peak Inspiratory Airway 22 Pressure Peak Inspiratory Airway 22 Pressure Peak Inspiratory Airway 21 Pressure Peak Inspiratory Airway 23 Pressure Peak Inspiratory Airway 22 Pressure Peak Inspiratory Airway 23 Pressure Peak Inspiratory Airway 23 Pressure Peak Inspiratory Airway 22 Pressure Results - Laboratory Findings CBC and BMP: 12/12/18 04:02 12/12/18 04:02 ABG ABG pH 7.47 pH Units (7.32-7.45) H 12/12/18 05:10 ABG pCO2 38 mmHg (35-45) 12/12/18 05:10 ABG pO2 68 mmHg (85-104) L 12/12/18 05:10 ABG O2 Saturation 95 % (95-98) 12/12/18 05:10 PT/INR, D-dimer PT 15.2 Seconds (9.4-12.1) H 12/07/18 17:15 Abnormal lab findings: Abnormal lab results WBC 11.7 K/mcL (4.3-11.1) H 12/09/18 22:55 RBC 3.00 M/mcL (4.19-5.50) L 12/12/18 04:02 Hgb 9.2 g/dL (12.9-16.9) L 12/12/18 04:02 Hct 29.0 % (37.5-50.1) L 12/12/18 04:02 MCHC 31.3 g/dL (31.6-35.5) L 12/11/18 07:25 Plt Count 118 K/mcL (140-400) L 12/12/18 04:02 Neutrophils # 10.1 K/mcL (1.6-8.9) H 12/09/18 22:55 Monocytes # 1.5 K/mcL (0.0-1.3) H 12/07/18 17:15 Immature Plt Fraction 7.7 % (1.1-6.1) H 12/11/18 13:23 PT 15.2 Seconds (9.4-12.1) H 12/07/18 17:15 ABG pH 7.47 pH Units (7.32-7.45) H 12/12/18 05:10 ABG pCO2 48 mmHg (35-45) H 12/07/18 20:47 ABG pO2 68 mmHg (85-104) L 12/12/18 05:10 ABG HCO3 29 mEq/L (21-27) H 12/11/18 05:08 ABG Total CO2 29 mEq/L (20-26) H 12/12/18 05:10 ABG O2 Saturation 94 % (95-98) L 12/10/18 01:42 ABG Base Excess 4 mEq/L (-2 to 3) H 12/12/18 05:10 ABG Hematocrit 31.0 % (37.5-50.1) L 12/07/18 16:10 ABG Chloride 109 mEq/L (98-107) H 12/07/18 15:28 Potassium 3.2 mEq/L (3.5-5.3) L 12/07/18 16:10 Glucose 256 mg/dL (60-95) H 12/07/18 16:10 Sodium 152 mEq/L (136-145) H 12/10/18 04:15 Chloride 110 mEq/L (98-107) H 12/12/18 04:02 Carbon Dioxide 30 mEq/L (23-29) H 12/10/18 04:15 BUN 33 mg/dL (8-23) H 12/12/18 04:02 BUN/Creatinine Ratio 42 (6-26) H 12/12/18 04:02 Glucose 213 mg/dL (70-105) H 12/12/18 04:02 POC Glucose 208 mg/dL (70-99) H 12/11/18 23:22 Calculated Osmolality 310 (280-300) H 12/12/18 04:02 Lactic Acid 5.7 mmol/L (0.5-2.2) H* 12/07/18 20:58 Calcium 7.8 mg/dL (8.6-10.3) L 12/12/18 04:02 Venous Ioniz Calcium 1.14 mmol/L (1.15-1.35) L 12/11/18 05:13 Phosphorus 2.0 mg/dL (2.7-4.5) L 12/12/18 04:02 Magnesium 1.4 mg/dL (1.6-2.6) L 12/08/18 07:30 Creatine Kinase 279 Units/L (30-223) H 12/09/18 22:55 Serum Total Protein 4.9 g/dL (6.4-8.9) L 12/09/18 22:55 Albumin 2.9 g/dL (3.5-5.7) L 12/09/18 22:55 Globulin 2.0 g/dL (2.4-3.5) L 12/09/18 22:55 Arterial Blood Ionized Calcium 1.10 mmol/L (1.15-1.35) L 12/07/18 15:28 Crossmatch See Detail 12/07/18 08:42 - Microbiology Findings Microbiology Findings: Microbiology, Last 48 Hours 12/10/18 Unknown Respiratory Culture - Preliminary Left Lower Lobe Lung 12/10/18 00:33 Blood Culture - Preliminary Peripheral Venipuncture Culture is incubating and being continuously monitored for growth. Final report to follow. 12/10/18 00:33 Blood Culture - Preliminary Peripheral Venipuncture Culture is incubating and being continuously monitored for growth. Final report to follow. - Clinical Findings Intake & Output: Intake & Output 12/11/18 12/11/18 12/12/18 15:59 23:59 07:59 Intake Total 1650 / 3240 390 / 3240 469 / 469 Output Total 750 / 1300 200 / 1300 300 / 300 Balance 900 / 1940 190 / 1940 169 / 169 Weight 72.7 kg
[2018-12-12] MEDS: Pantoprazole 40 MG VIAL IVP SCH (09:10)
[2018-12-12] MEDS: Chlorhexidine Rinse 15 ML MOUTHWASH MM SCH (09:11)
--- NOTE | 2018-12-12 11:23 | Vascular/[facility] Progress Note ---
Date of Encounter: 12/12/18 Time of Encounter: 11:20 Discussion with patient/family: Assessment: Satisfactory progress status post aortobifemoral bypass grafting with evidence of continued flow into the profundas bilaterally. Incisions appear grossly normal at this point. Distally the patient remained stable. Plan: No surgical intervention is anticipated this point in time. Patient appears to be improving cardiopulmonary status and we will continue to monitor. Would suggest continuing nothing by mouth at present, until verified the patient is able to keep his airway clear. Avoidance of aspiration at this point in time would appear to be significant. - Subjective Interval history: This 73-year-old male is seen in follow-up today status post aor tobifemoral bypass grafting. The patient has just been extubated this morning and is on BiPAP at this point in time. There are no new complaints given today.. Vital Signs, Last 4 Hours Temp Pulse Resp BP Pulse Ox 12/12/18 11:00 98 29 117/66 93 12/12/18 10:10 32 115/80 94 12/12/18 10:00 110 26 105/67 93 12/12/18 09:00 84 26 104/74 93 12/12/18 08:10 97.8 F 12/12/18 08:00 88 26 115/80 96 12/12/18 07:58 94 12/12/18 07:23 28 Exam: 73-year-old male in both acute and chronic distress. He is awake, alert, coherent, and cooperative. He is on BiPAP at the present time. He is able to communicate and appears to be breathing reasonably easily at this point. He apparently was having some problems earlier because they could not get a seal with the NG tube in place. I did allow the NG tube to be removed. The patient has no evidence of nausea at this time. Abdomen is soft without obvious masses noted at this time. Incision is clean, dry, intact, and well approximated. There is no erythema or induration. Both groin incisions are clean, dry, intact, and well approximated. There is no erythema or induration. Femoral pulses remained palpable. Distal pulses remain nondiscernible, but the feet remain warm to touch and the patient has full neurologic function. Results 12/12/18 04:02 12/12/18 04:02 Lab Results, Last 24 hours 12/11/18 12/12/18 12/12/18 13:23 04:02 04:02 WBC 7.9 7.7 Hgb 9.2 L 9.2 L Hct 28.1 L 29.0 L Plt Count 79 L 118 L Sodium 143 Potassium 4.1 Chloride 110 H Carbon Dioxide 27 BUN 33 H Creatinine 0.79 Glucose 213 H Calcium 7.8 L Magnesium 2.0 Consult Discharge Plan - Plan Referrals: [facility],PCP [Primary Care Provider] - 12/17/18 10:00 am Severo Winston MD [Partnered Physician] - 12/29/18 9:45 am
[2018-12-12] MEDS ORDERED: Ondansetron 4 MG/2 ML VIAL IVP PRN (18:30)
[2018-12-12] MEDS ORDERED: *HR* Labetalol 20 MG/4 ML SYRINGE IVP PRN (18:30)
[2018-12-12] MEDS ORDERED: D5% in Water 1,000 ML IVC PRN (18:30)
[2018-12-12] MEDS ORDERED: Naloxone 0.4 MG/ML INJ IVP PRN (18:30)
[2018-12-12] MEDS ORDERED: Ketorolac 15 MG/ML VIAL IVP PRN (18:30)
[2018-12-12] MEDS ORDERED: *HR* Dextrose 50 % in Water (Syg) 50 ML SYRINGE IVP PRN (18:30)
[2018-12-12] MEDS ORDERED: Dextrose Gel 15 GM/37.5 ML TUBE PO PRN ×2 (18:30)
[2018-12-13] MEDS: Insulin LISPRO 300 UNITS/3 ML VIAL SQ SCH ×4 (01:30→17:28)
[2018-12-13] MEDS: *HR* Heparin 5,000 UNIT/ML VIAL SQ SCH ×3 (05:40→22:09)
[2018-12-13] MEDS: Famotidine 20 MG/2 ML VIAL IVP SCH ×2 (05:40→17:28)
[2018-12-13 05:56] LABS: Basophils % 0.1 %; Eosinophils # 0.1 K/mcL (0.0-0.6); Eosinophils % 1.8 %; Hematocrit 31.9 % (37.5-50.1); Hemoglobin 9.9 g/dL (12.9-16.9); Immature Granulocytes % 0.5 % (0-4); Lymphocytes # 1.3 K/mcL (0.6-4.6); Lymphocytes % 17.1 %; Mean Corpuscular Hemoglobin 30.7 pg (28.0-33.3); Mean Corpuscular Volume 98.8 fL (83.0-100.0); Mean Platelet Volume 11.4 fL (9.4-12.4); Monocytes # 0.5 K/mcL (0.0-1.3); Monocytes % 6.7 %; Neutrophils # 5.6 K/mcL (1.6-8.9); Platelet Count 158 K/mcL (140-400); Red Blood Count 3.23 M/mcL (4.19-5.50); Red Cell Distribution Width 12.7 % (11.5-14.5); Segmented Neutrophils % 73.8 %; White Blood Count 7.6 K/mcL (4.3-11.1)
[2018-12-13 05:57] LABS: VBG Ionized Calcium 1.14 mmol/L (1.15-1.35)
[2018-12-13 06:15] LABS: BUN/Creatinine Ratio 40 (6-26); Blood Urea Nitrogen 33 mg/dL (8-23); Calcium 7.9 mg/dL (8.6-10.3); Carbon Dioxide 25 mEq/L (23-29); Chloride 110 mEq/L (98-107); Glucose 130 mg/dL (70-105); Osmolality,Calculated 315 (280-300); Potassium 3.9 mEq/L (3.5-5.1); Sodium 148 mEq/L (136-145); eGFR For African Americans > 60 (> 60); eGFR For Non-African Americans > 60 (> 60)
[2018-12-13 06:16] LABS: Magnesium 1.9 mg/dL (1.6-2.6); Phosphorous 3.1 mg/dL (2.7-4.5)
--- NOTE | 2018-12-13 08:14 | Internal Med Progress Note ---
Hospitalist Progress Note - Encounter Date of Encounter: 12/13/18 Time of Encounter: 07:57 - Subjective Interval History: Patient seen and examined this morning events. No acute overnight events. Tolerating nasal cannula high flow and saturating well. Denies any difficulty breathing or chest pain. Denies any abdominal pain nausea vomiting or diarrhea. Once to have something to drink. - Exam Vitals: Temp Pulse Resp BP Pulse Ox 98.1 F 66 25 98/84 100 12/13/18 04:35 12/13/18 06:00 12/13/18 06:00 12/13/18 06:00 12/13/18 06:00 Exam: General: In no acute distress. Respiratory exam: no accessory muscle use. Crackles at b/l base. LLL decreased entry. Cardiovascular exam: RRR, +S1, +S2. no murmur, gallop, rubs. GI/Abdominal exam: Non-tender, Non-distended, normal bowel sounds, soft, no peritoneal signs. Surgical scar without signs of infection. has sprague in place Extremities exam: no pedal edema, pulses palpable in b/l lower extremities. no calf tenderness Neurological exam: CN II-XII intact, AO X3, no focal deficits. 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 Chronic DM HTN PAD Plan - Vascular surgery following. No further surgical intervention planned. - Acute blood loss anemia due to surgical blood loss. s/p 2 PRBC. Now stable. - needed intubation due to respiratory failure. Now extubated. Clinically doing well. Progress diet if ok with surgery. DC sprague if okay with surgeyr. - c/w zosyn for possible pnuemonia. Unclear organism. Bronchoscopy on 12/10. No growth from BAL. Blood cx 12/10 NGTD. - Accu-Checks and sliding scale - Hold home antihypertensive given BP low. - PPI for GI ppx and heparin for DVT ppx Internal Medicine: Result - Labs CBC & Chem 7: 12/13/18 05:07 12/13/18 05:07 Labs: Short CBC 12/13/18 Range/Units 05:07 WBC 7.6 (4.3-11.1) K/mcL Hgb 9.9 L (12.9-16.9) g/dL Hct 31.9 L (37.5-50.1) % Plt Count 158 (140-400) K/mcL Neutrophils # 5.6 (1.6-8.9) K/mcL BMP 12/13/18 05:07 Sodium 148 H Potassium 3.9 Chloride 110 H Carbon Dioxide 25 BUN 33 H Creatinine 0.83 Glucose 130 H Calcium 7.9 L - ABG Interpretation ABG results: ABG ABG pH 7.47 pH Units (7.32-7.45) H 12/12/18 05:10 ABG pCO2 38 mmHg (35-45) 12/12/18 05:10 ABG pO2 68 mmHg (85-104) L 12/12/18 05:10 ABG O2 Saturation 95 % (95-98) 12/12/18 05:10 PT/INR, D-dimer PT 15.2 Seconds (9.4-12.1) H 12/07/18 17:15 Consult Discharge Plan - Plan Referrals: [facility] [Primary Care Provider] - 12/17/18 10:00 am Severo Winston MD [Partnered Physician] - 12/29/18 9:45 am (2) Diabetes mellitus Qualifiers: Diabetes mellitus type: type 2 Diabetes mellitus residential insulin use: without intermediate project manager use Diabetes mellitus complication status: with other specified complication Qualified Code(s): E11.69 - Type 2 diabetes mellitus with other specified complication (5) Pneumonia Qualifiers: Pneumonia type: due to unspecified organism Laterality: left Lung location: lower lobe of lung Qualified Code(s): J18.1 - Lobar pneumonia, unspecified organism
[2018-12-13] MEDS: Piperacillin/Tazobactam 3.375 GM in 0.9 % Sodium Chloride Mini Bag 100 ML IVPB SCH ×3 (08:19→23:30)
[2018-12-13] MEDS ORDERED: Pantoprazole 40 MG VIAL IVP SCH (09:00)
--- NOTE | 2018-12-13 13:49 | Vascular/[facility] Progress Note ---
Date of Encounter: 12/13/18 Time of Encounter: 13:41 - Assessment and plan (1) PAD (peripheral artery disease) Current Visit: Yes Status: Chronic Patient is postoperative day #6 following aortobifemoral profunda bypass graft for combined abdominal aortic aneurysm, iliac artery aneurysms, and iliofemoral occlusive disease. Patient has known bilateral superficial femoral artery occlusions. Patient is not expected to regain palpable pulses following bypass grafting but should have improved perfusion due to profunda collaterals. Patient had respiratory compromise requiring reintubation. He was identified as having left lower lobe pneumonia. He went on to have a bronchoscopy with BAL. He was able to be extubated 2 days later on Thursday. He is presently stable on nasal cannula oxygen (2) S/P aortobifemoral bypass surgery Current Visit: Yes Status: Acute Aortobifemoral profunda bypass graft remains patent. (3) Metabolic acidosis Current Visit: Yes Status: Resolved Patient's perioperative acidosis is now resolved. (4) Pneumonia Current Visit: Yes Status: Acute Patient had respiratory compromise with severe hypoxemia late last night. This required the patient to be reintubated at approximately midnight. He went on to have a chest x-ray, CT scan of the chest, and bronchoscopy. Patient is now on dual antibiotic therapy and mechanical ventilation. Qualifiers: Pneumonia type: due to unspecified organism Laterality: left Lung location: lower lobe of lung Qualified Code(s): J18.1 - Lobar pneumonia, unspecified organism - Subjective Interval history: Patient is postoperative day #6 following repair of abdominal aortic aneurysm, bilateral iliac artery aneurysm, and aorto-biprofundafemoral bypass. Patient had respiratory decline late night at approximately midnight required reintubation for's severe hypoxemia. Patient is hemodynamically stable. Chest x-ray revealed a suspected left lower lobe pneumonia. He went on to have a CT scan of the chest. This was negative for pulmonary embolism. Because of the CT scan findings the patient went on to have bronchoscopy Thursday with BAL. Mucopurulent material was found in the left lower lobe and this was aspirated and cultured. Patient improved with antibiotic and ventilator care. He was extubated Thursday. He has had no further respiratory complications and is receiving oxygen supplement via nasal cannula. Cultures to date are still no growth. Patient has had bowel movements over the weekend and is hungry. Vital Signs, Last 4 Hours Temp Pulse Resp BP Pulse Ox 12/13/18 12:05 98.0 F 12/13/18 12:00 89 24 125/82 97 12/13/18 10:00 74 24 111/70 97 - Physical Examination General: Present: Conversant, No Apparent Distress HEENT: Present: Atraumatic, Normocephaly Neck: Absent: JVD Cardiac: Present: Reg Rate and Rhythm Lungs: Present: Other (Coarse breath sounds particularly on the left lung field.) Neuro: Present: Alert and responsive, No focal deficits noted, Cranial nerves grossly intact Vascular: Present: Pulse, absent (Patient has no palpable popliteal or pedal pulses as expected as he has known superficial femoral artery occlusions bilaterally), Pulse, normal (Bilateral femoral pulses are 2+), Surgical incisions (Dry dressings on surgical incisions) Abdomen: Present: Soft, Non-tender, Other (Active bowel sounds). Absent: Masses Skin: Present: No rashes noted on visualized skin Results 12/13/18 05:07 12/13/18 05:07 Lab Results, Last 24 hours 12/13/18 12/13/18 12/13/18 05:07 05:07 05:07 WBC 7.6 Hgb 9.9 L Hct 31.9 L Plt Count 158 Sodium 148 H Potassium 3.9 Chloride 110 H Carbon Dioxide 25 BUN 33 H Creatinine 0.83 Glucose 130 H Calcium 7.9 L Magnesium 1.9 Consult Discharge Plan - Plan Referrals: [facility],PCP [Primary Care Provider] - 12/17/18 10:00 am Severo Winston MD [Partnered Physician] - 12/29/18 9:45 am
[2018-12-13] MEDS ORDERED: Naloxone 0.4 MG/ML INJ IVP PRN (19:21)
[2018-12-13] MEDS ORDERED: Ondansetron 4 MG/2 ML VIAL IVP PRN (19:21)
[2018-12-13] MEDS ORDERED: Dextrose Gel 15 GM/37.5 ML TUBE PO PRN ×2 (19:21)
[2018-12-13] MEDS ORDERED: *HR* Dextrose 50 % in Water (Syg) 50 ML SYRINGE IVP PRN (19:21)
[2018-12-13] MEDS ORDERED: *HR* Labetalol 20 MG/4 ML SYRINGE IVP PRN (19:21)
[2018-12-13] MEDS ORDERED: D5% in Water 1,000 ML IVC PRN (21:58)
[2018-12-14] MEDS: Insulin LISPRO 300 UNITS/3 ML VIAL SQ SCH ×5 (00:07→16:28)
[2018-12-14 04:49] LABS: Basophils % 0.1 %; Eosinophils # 0.3 K/mcL (0.0-0.6); Hematocrit 29.3 % (37.5-50.1); Hemoglobin 9.2 g/dL (12.9-16.9); Immature Granulocytes % 0.9 % (0-4); Lymphocytes # 1.2 K/mcL (0.6-4.6); Lymphocytes % 16.5 %; Mean Corpuscular HGB Conc 31.4 g/dL (31.6-35.5); Mean Corpuscular Hemoglobin 30.9 pg (28.0-33.3); Mean Corpuscular Volume 98.3 fL (83.0-100.0); Monocytes # 0.5 K/mcL (0.0-1.3); Platelet Count 179 K/mcL (140-400); Red Blood Count 2.98 M/mcL (4.19-5.50); Red Cell Distribution Width 12.1 % (11.5-14.5); Segmented Neutrophils % 71.5 %
[2018-12-14 04:51] LABS: VBG Ionized Calcium 1.23 mmol/L (1.15-1.35)
[2018-12-14 05:08] LABS: BUN/Creatinine Ratio 34 (6-26); Blood Urea Nitrogen 25 mg/dL (8-23); Carbon Dioxide 27 mEq/L (23-29); Chloride 108 mEq/L (98-107); Glucose 146 mg/dL (70-105); Magnesium 1.8 mg/dL (1.6-2.6); Osmolality,Calculated 301 (280-300); Phosphorous 2.2 mg/dL (2.7-4.5); Potassium 3.2 mEq/L (3.5-5.1); Sodium 142 mEq/L (136-145); eGFR For African Americans > 60 (> 60); eGFR For Non-African Americans > 60 (> 60)
[2018-12-14] MEDS: *HR* Heparin 5,000 UNIT/ML VIAL SQ SCH ×3 (05:45→20:36)
[2018-12-14] MEDS ORDERED: Famotidine 20 MG/2 ML VIAL IVP SCH (06:00)
[2018-12-14] MEDS: Piperacillin/Tazobactam 3.375 GM in 0.9 % Sodium Chloride Mini Bag 100 ML IVPB SCH (08:28)
--- NOTE | 2018-12-14 08:30 | Internal Med Progress Note ---
Hospitalist Progress Note - Encounter Date of Encounter: 12/14/18 Time of Encounter: 08:30 - Subjective Interval History: Patient seen and examined this morning at bedside. No acute events. Denies new complaints. Ambulating well. Denies any chest pain difficulty breathing nausea vomiting or diarrhea. - Exam Vitals: Temp Pulse Resp BP Pulse Ox 98.0 F 60 18 114/68 96 12/14/18 07:18 12/14/18 07:18 12/14/18 07:18 12/14/18 07:18 12/14/18 07:18 Exam: General: In no acute distress. Respiratory exam: no accessory muscle use. Crackles at b/l base. Cardiovascular exam: RRR, +S1, +S2. no murmur, gallop, rubs. GI/Abdominal exam: Non-tender, Non-distended, normal bowel sounds, soft, no peritoneal signs. Surgical scar without signs of infection. Extremities exam: no pedal edema, pulse not palpable, no calf tenderness Neurological exam: CN II-XII intact, AO X3, no focal deficits. 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 Chronic DM HTN PAD Plan - Vascular surgery following. - Acute blood loss anemia due to surgical blood loss. s/p 2 PRBC. Now stable. No indication for transfusion - needed intubation due to respiratory failure. Now extubated. Clinically doing well. switch zosyn to po augmentin for 2 more days. Unclear organism. Bronchoscopy on 12/10. No growth from BAL. Blood cx 12/10 NGTD. - Accu-Checks and sliding scale - Hold home antihypertensive given BP low. May have to hold on DC - PPI for GI ppx and heparin for DVT ppx - await PT/OT Internal Medicine: Result - Labs CBC & Chem 7: 12/14/18 04:28 12/14/18 04:28 Labs: Short CBC 12/14/18 Range/Units 04:28 WBC 7.0 (4.3-11.1) K/mcL Hgb 9.2 L (12.9-16.9) g/dL Hct 29.3 L (37.5-50.1) % Plt Count 179 (140-400) K/mcL Neutrophils # 5.0 (1.6-8.9) K/mcL BMP 12/14/18 04:28 Sodium 142 Potassium 3.2 L Chloride 108 H Carbon Dioxide 27 BUN 25 H Creatinine 0.74 Glucose 146 H Calcium 8.0 L - ABG Interpretation ABG results: ABG ABG pH 7.47 pH Units (7.32-7.45) H 12/12/18 05:10 ABG pCO2 38 mmHg (35-45) 12/12/18 05:10 ABG pO2 68 mmHg (85-104) L 12/12/18 05:10 ABG O2 Saturation 95 % (95-98) 12/12/18 05:10 PT/INR, D-dimer PT 15.2 Seconds (9.4-12.1) H 12/07/18 17:15 Consult Discharge Plan - Plan [facility]errals: [facility] [Primary Care Provider] - 12/17/18 10:00 am Severo Winston MD [Partnered Physician] - 12/29/18 9:45 am Prescriptions: Amoxicillin/Clavulanate [Augmentin] 875 mg PO BIDWM 2 Days #4 tablet (2) Diabetes mellitus Qualifiers: Diabetes mellitus type: type 2 Diabetes mellitus long-term insulin use: without long-term use Diabetes mellitus complication status: with other specified complication Qualified Code(s): E11.69 - Type 2 diabetes mellitus with other specified complication (5) Pneumonia Qualifiers: Pneumonia type: due to unspecified organism Laterality: left Lung location: lower lobe of lung Qualified Code(s): J18.1 - Lobar pneumonia, unspecified organism
[2018-12-14] MEDS ORDERED: Pantoprazole 40 MG VIAL IVP SCH (09:00)
--- NOTE | 2018-12-14 18:28 | Vascular/[facility]as Progress Note ---
Date of Encounter: 12/14/18 Time of Encounter: 18:26 - Assessment and plan (1) PAD (peripheral artery disease) Current Visit: Yes Status: Chronic Patient is postoperative day #7 following aortobifemoral profunda bypass graft for combined abdominal aortic aneurysm, iliac artery aneurysms, and iliofemoral occlusive disease. Patient has known bilateral superficial femoral artery occlusions. Patient is not expected to regain palpable pulses following bypass grafting but should have improved perfusion due to profunda collaterals. Patient had respiratory compromise requiring reintubation. He was identified as having left lower lobe pneumonia. He went on to have a bronchoscopy with BAL. He was able to be extubated 2 days later on Thursday morning. He is presently stable on nasal cannula oxygen\ Patient was transferred out of the intensive care unit late yesterday. He is on 28. He will be transferred to [facility] later. Lower extremity perfusion is sig nificantly improved from preop status. His bypass graft is functioning well. (2) S/P aortobifemoral bypass surgery Current Visit: Yes Status: Acute Aortobifemoral profunda bypass graft remains patent. Patient has become debilitated due to his prolonged ICU stay and reintubation. He has made significant improvement however over the last 48 hours. I appreciate the physical therapy consultation. After lengthy discussion with the patient we will reevaluate his status tomorrow and if possible arrange for his discharge as early as tomorrow afternoon with outpatient physical therapy rather than an inpatient status. (3) Metabolic acidosis Current Visit: Yes Status: Resolved Patient's perioperative acidosis is now resolved. (4) Pneumonia Current Visit: Yes Status: Acute Patient is comfortable. He has no shortness of breath or dyspnea. He does have some debilitation due to his prolonged ICU stay. The patient is now resting on room air and is comfortable. We will increase his physical activity tomorrow and if he is stable and anticipate his discharge. The patient has been con verted from intravenous to oral antibiotics. Patient's cultures are negative to date. Qualifiers: Pneumonia type: due to unspecified organism Laterality: left Lung location: lower lobe of lung Qualified Code(s): J18.1 - Lobar pneumonia, unspecified organism - Subjective Interval history: Patient is postoperative day #7 following repair of abdominal aortic aneurysm, bilateral iliac artery aneurysm, and aorto-biprofundafemoral bypass. Patient had respiratory decline late night at approximately midnight required reintubation for's severe hypoxemia. Chest x-ray revealed a suspected left lower lobe pneumonia. He went on to have a CT scan of the chest. This was negative for pulmonary embolism. Because of the CT scan findings the patient went on to have bronchoscopy Thursday morning with BAL. Mucopurulent material was found in the left lower lobe and this was aspirated and cultured. Patient improved with antibiotic and ventilator care. He was extubated Thursday. He has had no further respiratory complications and is receiving oxygen supplement via nasal cannula. Cultures to date are still no growth. Patient has had bowel movements over the weekend and is hungry. The patient was transferred although the intensive care unit late yesterday. Today the patient did ambulate in the hallway for short distances. He was seen by physical therapy as well in consultation. Recommendations were made for inpatient rehabilitation. I discussed this in some detail with the patient. I suggested that as he has made significant improvement in the last 48 hours if he can demonstrate further improvement with his ambulation that we could allow him to go home and receive outpatient physical therapy and incentive inpatient physical therapy. Patient understands these issues. Patient would prefer outpatient physical therapy if possible. Vital Signs, Last 4 Hours Temp Pulse Resp BP Pulse Ox 12/14/18 16:16 98.4 F 60 18 125/77 97 - Physical Examination General: Present: Conversant, No Apparent Distress HEENT: Present: Atraumatic, Normocephaly Neck: Absent: JVD Cardiac: Present: Reg Rate and Rhythm Lungs: Present: Normal Breath Sounds Neuro: Present: Alert and responsive, No focal deficits noted Vascular: Present: Normal capillary refill, Color/Temperature (Feet are warm and pink), Surgical incisions (Clean and dry). Absent: Edema Abdomen: Present: Soft, Non-tender. Absent: Masses Skin: Present: No rashes noted on visualized skin - VTE Documentation of Mechanical Device: Intermittent pneumatic compression device Results 12/14/18 04:28 12/14/18 04:28 Lab Results, Last 24 hours 12/14/18 12/14/18 12/14/18 04:28 04:28 04:28 WBC 7.0 Hgb 9.2 L Hct 29.3 L Plt Count 179 Sodium 142 Potassium 3.2 L Chloride 108 H Carbon Dioxide 27 BUN 25 H Creatinine 0.74 Glucose 146 H Calcium 8.0 L Magnesium 1.8 Consult Discharge Plan - Plan Additional Instructions: Patient is to ambulate 3 times a day and as directed by physical therapy. Patient is to use incentive spirometer 10 times an hour while awake for the next 2 weeks. Patient is to complete oral antibiotic regimen as prescribed. No lifting greater than 10 pounds. Patient may use stairs as tolerated. No automobile driving. Referrals: [facility] [Primary Care Provider] - 12/17/18 10:00 am Severo Winston MD [Partnered Physician] - 12/29/18 9:45 am Prescriptions: Amoxicillin/Clavulanate [Augmentin] 875 mg PO BIDWM 2 Days #4 tablet
[2018-12-14] MEDS ORDERED: Insulin LISPRO 300 UNITS/3 ML VIAL SQ SCH (21:00)
[2018-12-15] MEDS: *HR* Heparin 5,000 UNIT/ML VIAL SQ SCH ×2 (05:11→16:07)
[2018-12-15] MEDS: Insulin LISPRO 300 UNITS/3 ML VIAL SQ SCH ×2 (08:28→11:55)
--- NOTE | 2018-12-15 08:29 | Physician Discharge Referral ---
Home Health/Hosp Referral Info Transfer to: Home Health Attending Provider: Dr Winston Provider in Charge Post Discharge: PCP - Diagnosis (1) PAD (peripheral artery disease) Priority: Primary Status: Chronic (2) S/P aortobifemoral bypass surgery Priority: Secondary Status: Acute (3) Metabolic acidosis Priority: Secondary Status: Resolved (4) Pneumonia Priority: Secondary Status: Acute - Respiratory Orders Smoking Cessation: Smoking cessation has been advised. For more information, call the [place] Tobacco Quit Line at 7-450-TEWJ-NOW. - Services Needed Following services are medically necessary services: Physical Therapy (Out patient Phy Tx) - Transfer Medications Prescriptions: Amoxicillin/Clavulanate [Augmentin] 875 mg PO BIDWM 2 Days #4 tablet Home Medications: Ascorbic Acid [Vitamin C] 500 mg PO QAM 12/07/18 [History] Cranberry Conc/C/Bacill Coag [Azo Cranberry Tablet] 1 tab PO QAM 12/07/18 [History] Docusate Sodium [Dulcolax Stool Softener] 100 mg PO BID 12/07/18 [History] Ferrous Sulfate [Iron] 325 mg PO TID 12/07/18 [History] Lactobacillus Combination No.8 [Adult Probiotic] 1 cap PO DAILY 12/07/18 [History] Lovastatin 80 mg PO QPM 12/07/18 [History] Metformin HCl [Glucophage] 1,000 mg PO BID 12/07/18 [History] Methocarbamol [Robaxin] 500 mg PO TID PRN 12/07/18 [History] Morphine Sulfate Immed Rel [Morphine Sulfate] 15 mg PO TID PRN 12/07/18 [History] Vitamin B Complex [Balanced B-50] 1 tab PO QAM 12/07/18 [History] Amoxicillin/Clavulanate [Augmentin] 875 mg PO BIDWM 2 Days #4 tablet 12/14/18 [Rx] Allergies/Adverse Reactions: Allergy/AdvReac Type Severity Reaction Status Date / Time gabapentin AdvReac Abdominal Verified 12/07/18 06:26 Pain simvastatin AdvReac Abdominal Verified 12/07/18 06:26 Pain Certification: Further, I certify that my clinical findings support that this patient is homebound (i.e. absences from home require considerable and taxing effort and are for medical reasons or restoration services or infrequently or short duration when for other reasons) because: Homebound Reason: Post-surgery restriction and or conditions limit ability to leave home, Severity of cardiac or pulmonary status limits activity tolerance Attestation: My signature below is to certify that this patient is under my care and that I, or nurse practitioner, or a physician's certified surgical assistant working with me, has a [id number] encounter with this patient.
[2018-12-15 09:38] LABS: BUN/Creatinine Ratio 23 (6-26); Blood Urea Nitrogen 15 mg/dL (8-23); Calcium 8.6 mg/dL (8.6-10.3); Carbon Dioxide 27 mEq/L (23-29); Chloride 103 mEq/L (98-107); Glucose 173 mg/dL (70-105); Osmolality,Calculated 295 (280-300); Potassium 3.3 mEq/L (3.5-5.1); Sodium 140 mEq/L (136-145); eGFR For African Americans > 60 (> 60); eGFR For Non-African Americans > 60 (> 60)
[2018-12-15 11:15] VITALS: BP 133/72
--- NOTE | 2018-12-15 16:33 | Discharge Summary ---
Orders not resulted at time of discharge: Pending orders 12/10/18 01:30 Culture,Sputum with Gram Stain [RM] Routine 12/16/18 04:00 BMP [Basic Metabolic Panel] AM 0400 12/17/18 04:00 BMP [Basic Metabolic Panel] AM 0400 Date of Encounter: 12/15/18 Time of Encounter: 16:31 - Discharge Diagnosis (1) PAD (peripheral artery disease) Priority: Primary Status: Chronic Comments: Severe bilateral iliac artery and superficial femoral artery occlusive disease. (2) S/P aortobifemoral bypass surgery Priority: Secondary Status: Acute Comments: Patient is status post aorto by profundofemoral bypass graft and bilateral common femoral and profundofemoral artery endarterectomies (3) Metabolic acidosis Priority: Secondary Status: Resolved (4) Pneumonia Priority: Secondary Status: Acute Comments: Patient had a hospital-acquired left lower lobe pneumonia. This required reintubation and 2 days of mechanical ventilatory support. Qualifiers: Pneumonia type: due to unspecified organism Laterality: left Lung location: lower lobe of lung Qualified Code(s): J18.1 - Lobar pneumonia, unspecified organism (5) AAA (abdominal aortic aneurysm) Priority: Secondary Status: Chronic Comments: The patient had a 4.3 cm abdominal aortic aneurysm that was repaired as part of his vascular reconstruction. Qualifiers: Presence of rupture: without rupture Qualified Code(s): I71.4 - Abdominal aortic aneurysm, without rupture (6) Bilateral iliac artery aneurysm Priority: Secondary Status: Chronic Comments: Patient had bilateral common iliac artery aneurysms that were repaired as part of his vascular reconstruction. - Hospital Course Hospital course: Mr. Olguin is a 73 year old male With severe occlusive disease and lifestyle limiting claudication as well as abdominal aortic aneurysms and bilateral iliac artery aneurysms. The patient underwent an aorto Y profundofemoral artery bypass graft. This also included repair of the aneurysms and an extended endarterectomy of the bilateral common femoral and profunda femoral arteries. The patient has known superficial femoral artery occlusions. The patient may potentially require bilateral fe moral-popliteal bypass grafts pending his physiologic response to the bypass created during this admission. On postoperative day 3 the patient developed respiratory compromise and required reintubation for 48 hours. He was found to have a left lower lobe pneumonia. He required bronchoscopy with BAL. The patient responded well to ventilatory support and antibiotics. The patient was able to be transferred eventually to [address] [place] [address]. He was felt fit for discharge on postoperative day #8. Due to his prolonged hospitalization he is an excellent candidate for outpatient physical therapy due to his debilitation. The appropriate authorization is known progress via the [place]. Patient's wound care exercise and medications were reviewed prior to discharge. The patient was discharged to home with his . The patient was encouraged to minimize use of the morphine. - Time Spent with Patient Total time spent providing and/or coordinating discharge services: - Discharge Medications Prescriptions: New Amoxicillin/Clavulanate [Augmentin] 875 mg PO BIDWM 2 Days #4 tablet Continued Ascorbic Acid [Vitamin C] 500 mg PO QAM Cranberry Conc/C/Bacill Coag [Azo Cranberry Tablet] 1 tab PO QAM Docusate Sodium [Dulcolax Stool Softener] 100 mg PO BID Ferrous Sulfate [Iron] 325 mg PO TID Lactobacillus Combination No.8 [Adult Probiotic] 1 cap PO DAILY Lovastatin 80 mg PO QPM Metformin HCl [Glucophage] 1,000 mg PO BID Methocarbamol [Robaxin] 500 mg PO TID PRN PRN Reason: Muscle Spasm Morphine Sulfate Immed Rel [Morphine Sulfate] 15 mg PO TID PRN PRN Reason: Pain Vitamin B Complex [Balanced B-50] 1 tab PO QAM Discontinued Amlodipine Besylate 2.5 mg PO QAM hydroCHLOROthiazide [Hydrochlorothiazide] 12.5 mg PO QAM Lisinopril [Zestril] 20 mg PO QAM Home Medications: Ascorbic Acid [Vitamin C] 500 mg PO QAM 12/07/18 [History] Cranberry Conc/C/Bacill Coag [Azo Cranberry Tablet] 1 tab PO QAM 12/07/18 [History] Docusate Sodium [Dulcolax Stool Softener] 100 mg PO BID 12/07/18 [History] Ferrous Sulfate [Iron] 325 mg PO TID 12/07/18 [History] Lactobacillus Combination No.8 [Adult Probiotic] 1 cap PO DAILY 12/07/18 [History] Lovastatin 80 mg PO QPM 12/07/18 [History] Metformin HCl [Glucophage] 1,000 mg PO BID 12/07/18 [History] Methocarbamol [Robaxin] 500 mg PO TID PRN 12/07/18 [History] Morphine Sulfate Immed Rel [Morphine Sulfate] 15 mg PO TID PRN 12/07/18 [History] Vitamin B Complex [Balanced B-50] 1 tab PO QAM 12/07/18 [History] Amoxicillin/Clavulanate [Augmentin] 875 mg PO BIDWM 2 Days #4 tablet 12/14/18 [Rx] Allergies/Adverse Reactions: Allergy/AdvReac Type Severity Reaction Status Date / Time gabapentin AdvReac Abdominal Verified 12/07/18 06:26 Pain simvastatin AdvReac Abdominal Verified 12/07/18 06:26 Pain Date of admission: 12/07/18 16:54 [facility] physician[facility] Consults: 12/07/18 16:56 Consult to Physician [CONS] Routine Consulting Provider: Kiera Frank Reason for Consult: post ICU and vent management Time Notified: 16:10 Call Completed: Yes 12/10/18 14:50 consult to cd reactor operator 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 Patient developed postoperative pneumonia and required reintubation for 48 hours. Patient has improved and is now able to be up out of bed. Evaluate for therapy needs both in the hospital and upon discharge. Does patient have active BEDREST order?: No Is patient medically & hemodynamically stable?: Yes Patient assessed for mobility or mobilized this visit?: No 12/14/18 08:19 Consult to Nurse Navigator [CONS] Routine Comment: pn Procedure(s) Performed: [id number] femoral artery bypass graft and bilateral common femoral and profunda femoral endarterectomy Discharging clinician: Severo Winston Anticipated date of discharge: 12/15/18 Exam General: Present: Conversant, No Apparent Distress HEENT: Present: Atraumatic Neck: Present: JVD Cardiac: Present: Reg Rate and Rhythm Neuro: Present: Alert and responsive, No focal deficits noted, Cranial nerves grossly intact Abdomen: Present: Soft, Non-tender Vascular: Present: Normal capillary refill, Surgical incisions (Clean and dry) Skin: Present: No rashes noted on visualized skin - Patient Status Disposition: Home Health Service Condition: Good Functional capacity at discharge: uses cane/walker Overall status at discharge: patient is progressing back to baseline - Discharge Instructions Follow Up With: BETZY,PCP [Primary Care Provider] - 12/17/18 10:00 am Severo Winston MD [Partnered Physician] - 12/29/18 9:45 am Additional Instructions: Patient is to ambulate 3 times a day and as directed by physical therapy. Patient is to use incentive spirometer 10 times an hour while awake for the next 2 weeks. Patient is to complete oral antibiotic regimen as prescribed. No lifting greater than 10 pounds. Patient may use stairs as tolerated. No automobile driving. - Diet and Activity Activity: increase activity as tolerated Diet: advance to your usual diet, low fat, low cholesterol - VTE Documentation of Mechanical Device: Intermittent pneumatic compression device
--- NOTE | 2018-12-15 17:48 | Internal Med Progress Note ---
Hospitalist Progress Note - Encounter Date of Encounter: 12/16/18 Time of Encounter: 10:00 - Subjective Interval History: Patient seen and examined this morning at bedside. Denies new complains. no abdominal pain or extremity pain - Exam Vitals: Temp Pulse Resp BP Pulse Ox 98.7 F 78 18 133/72 92 12/15/18 11:12 12/15/18 11:12 12/15/18 11:12 12/15/18 11:12 12/15/18 07:05 Exam: General: In no acute distress. Respiratory exam: no accessory muscle use. Crackles at b/l base. Cardiovascular exam: RRR, +S1, +S2. no murmur, gallop, rubs. GI/Abdominal exam: Non-tender, Non-distended, normal bowel sounds, soft, no peritoneal signs. Surgical scar without signs of infection. Extremities exam: no pedal edema, pulse not palpable, no calf tenderness Neurological exam: CN II-XII intact, AO X3, no focal deficits. 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 Chronic DM HTN PAD Plan - Vascular surgery following. - Acute blood loss anemia due to surgical blood loss. s/p 2 PRBC. Now stable. No indication for transfusion - needed intubation due to respiratory failure. Now extubated. Clinically doing well. switch zosyn to po augmentin for 1 more day. Unclear organism. Bronchoscopy on 12/10. No growth from BAL. Blood cx 12/10 NGTD. - Accu-Checks and sliding scale - Patient refused for rehab placement. Home health referral made by Vascular. He will be discharge per vascular surgery Internal Medicine: Result - Labs CBC & Chem 7: 12/14/18 04:28 12/15/18 07:45 Labs: BMP 12/15/18 07:45 Sodium 140 Potassium 3.3 L Chloride 103 Carbon Dioxide 27 BUN 15 Creatinine 0.66 L Glucose 173 H Calcium 8.6 - ABG Interpretation ABG results: ABG ABG pH 7.47 pH Units (7.32-7.45) H 12/12/18 05:10 ABG pCO2 38 mmHg (35-45) 12/12/18 05:10 ABG pO2 68 mmHg (85-104) L 12/12/18 05:10 ABG O2 Saturation 95 % (95-98) 12/12/18 05:10 PT/INR, D-dimer PT 15.2 Seconds (9.4-12.1) H 12/07/18 17:15 - VTE Documentation of Mechanical Device: Intermittent pneumatic compression device Consult Discharge Plan - Plan Instructions: Aortofemoral Bypass (DC), Diabetes Mellitus Type 2 in Adults (DC), Pneumonia (DC) Additional Instructions: Patient is to ambulate 3 times a day and as directed by physical therapy. Patient is to use incentive spirometer 10 times an hour while awake for the next 2 weeks. Patient is to complete oral antibiotic regimen as prescribed. No lifting greater than 10 pounds. Patient may use stairs as tolerated. No automobile driving. [facility]errals: [facility] [Primary Care Provider] - 12/17/18 10:00 am Severo Winston MD [Partnered Physician] - 12/29/18 9:45 am Prescriptions: Amoxicillin/Clavulanate [Augmentin] 875 mg PO BIDWM 2 Days #4 tablet (2) Diabetes mellitus Qualifiers: Diabetes mellitus type: type 2 Diabetes mellitus half-way insulin use: without half-way use Diabetes mellitus complication status: with other specified complication Qualified Code(s): E11.69 - Type 2 diabetes mellitus with other specified complication (5) Pneumonia Qualifiers: Pneumonia type: due to unspecified organism Laterality: left Lung location: lower lobe of lung Qualified Code(s): J18.1 - Lobar pneumonia, unspecified organism
== END 2018-12-15 16:55 | disposition home health service (06) | DRG 270 ==
LOC: SAMDAY 06:05 → SUATTDRO 16:54 → ICNU 16:54 → 2ANU 12-13 18:50 → 2NNU 12-14 20:14
PROVIDERS: ADMIT Surgery Vascular Surgery; ATTEND Internal Medicine

== ENCOUNTER 2020-02-27 13:37 | Inpatient (IN) ==
[2020-02-27] MEDS ORDERED: 0.9 % Sodium Chloride 1,000 ML IVC ONE (14:02)
[2020-02-27 16:17] LABS: Alanine Aminotransferase 15 Units/L (7-52); Albumin 4.5 g/dL (3.5-5.7); Albumin/Globulin Ratio 1.6 (1.1-2.2); Alkaline Phosphatase 48 Units/L (34-104); Aspartate Amino Transferase 15 Units/L (13-39); BUN/Creatinine Ratio 27 (6-26); Bilirubin,Direct 0.1 mg/dL (0.0-0.2); Bilirubin,Indirect 0.2 mg/dL (0.0-1.0); Bilirubin,Total 0.3 mg/dL (0.3-1.0); Blood Urea Nitrogen 26 mg/dL (8-23); Calcium 10.6 mg/dL (8.6-10.3); Carbon Dioxide 29 mEq/L (23-29); Chloride 100 mEq/L (98-107); Globulin 2.8 g/dL (2.4-3.5); Glucose 138 mg/dL (70-105); Lipase 179 Units/L (11-82); Osmolality,Calculated 291 (280-300); Potassium 4.6 mEq/L (3.5-5.1); Sodium 137 mEq/L (136-145); Total Protein 7.3 g/dL (6.4-8.9); eGFR For African Americans > 60 (> 60); eGFR For Non-African Americans > 60 (> 60)
[2020-02-27] MEDS ORDERED: Ondansetron 4 MG/2 ML VIAL IVP PRN (17:04)
[2020-02-27] MEDS ORDERED: 0.9 % Sodium Chloride 1,000 ML IVC SCH (17:15)
[2020-02-27] MEDS ORDERED: Acetaminophen IV 1,000 MG/100 ML INFUS..BTL IVPB ONE (18:18)
[2020-02-27] MEDS ORDERED: *HR* Metoprolol 5 MG/5 ML VIAL IVP PRN (18:32)
[2020-02-28 05:59] LABS: Basophils % 0.2 %; Eosinophils # 0.1 K/mcL (0.0-0.6); Eosinophils % 1.3 %; Hematocrit 41.7 % (37.5-50.1); Hemoglobin 13.4 g/dL (12.9-16.9); Immature Granulocytes % 0.3 % (0-4); Lymphocytes # 1.5 K/mcL (0.6-4.6); Lymphocytes % 16.1 %; Mean Corpuscular HGB Conc 32.1 g/dL (31.6-35.5); Mean Corpuscular Hemoglobin 31.1 pg (28.0-33.3); Mean Corpuscular Volume 96.8 fL (83.0-100.0); Mean Platelet Volume 10.6 fL (9.4-12.4); Monocytes # 0.7 K/mcL (0.0-1.3); Platelet Count 197 K/mcL (140-400); Red Blood Count 4.31 M/mcL (4.19-5.50); Red Cell Distribution Width 12.2 % (11.5-14.5); Segmented Neutrophils % 75.1 %; White Blood Count 9.3 K/mcL (4.3-11.1)
[2020-02-28 06:18] LABS: BUN/Creatinine Ratio 25 (6-26); Blood Urea Nitrogen 25 mg/dL (8-23); Calcium 9.4 mg/dL (8.6-10.3); Carbon Dioxide 28 mEq/L (23-29); Chloride 102 mEq/L (98-107); Glucose 140 mg/dL (70-105); Magnesium 1.4 mg/dL (1.6-2.6); Osmolality,Calculated 291 (280-300); Phosphorous 4.1 mg/dL (2.7-4.5); Potassium 4.3 mEq/L (3.5-5.1); Sodium 137 mEq/L (136-145); eGFR For African Americans > 60 (> 60); eGFR For Non-African Americans > 60 (> 60)
[2020-02-28] MEDS ORDERED: *HR* Dextrose 50 % in Water (Vial) 50 ML VIAL IVP PRN (07:27)
[2020-02-28] MEDS ORDERED: Dextrose Gel 15 GM/37.5 ML TUBE PO PRN ×2 (07:27)
[2020-02-28] MEDS ORDERED: D5% in Water 1,000 ML IVC PRN (07:27)
[2020-02-28] MEDS ORDERED: Magnesium Sulfate 1 GM/102 ML PIGGYBACK IVPB ONE (07:51)
[2020-02-28] MEDS: D5% in 0.9% NACL 1,000 ML IVC SCH ×2 (08:53→22:55)
[2020-02-28] MEDS: Pantoprazole 40 MG VIAL IVP SCH (08:53)
[2020-02-28] MEDS: Insulin LISPRO 300 UNITS/3 ML VIAL SQ SCH ×2 (13:08→18:15)
[2020-02-28] MEDS: *HR* Heparin 5,000 UNIT/ML VIAL SQ SCH (18:06)
[2020-02-29] MEDS: Insulin LISPRO 300 UNITS/3 ML VIAL SQ SCH ×3 (00:47→12:21)
[2020-02-29 05:23] LABS: Basophils % 0.3 %; Eosinophils # 0.2 K/mcL (0.0-0.6); Eosinophils % 2.4 %; Hematocrit 37.1 % (37.5-50.1); Immature Granulocytes % 0.4 % (0-4); Lymphocytes # 1.7 K/mcL (0.6-4.6); Lymphocytes % 22.8 %; Mean Corpuscular HGB Conc 32.3 g/dL (31.6-35.5); Mean Corpuscular Hemoglobin 31.7 pg (28.0-33.3); Mean Corpuscular Volume 98.1 fL (83.0-100.0); Mean Platelet Volume 10.3 fL (9.4-12.4); Monocytes # 0.7 K/mcL (0.0-1.3); Monocytes % 8.8 %; Neutrophils # 4.8 K/mcL (1.6-8.9); Platelet Count 156 K/mcL (140-400); Red Blood Count 3.78 M/mcL (4.19-5.50); Red Cell Distribution Width 12.1 % (11.5-14.5); Segmented Neutrophils % 65.3 %; White Blood Count 7.4 K/mcL (4.3-11.1)
[2020-02-29 05:28] LABS: BUN/Creatinine Ratio 18 (6-26); Blood Urea Nitrogen 17 mg/dL (8-23); Calcium 8.8 mg/dL (8.6-10.3); Carbon Dioxide 28 mEq/L (23-29); Chloride 106 mEq/L (98-107); Glucose 157 mg/dL (70-105); Magnesium 1.7 mg/dL (1.6-2.6); Osmolality,Calculated 299 (280-300); Phosphorous 2.8 mg/dL (2.7-4.5); Potassium 3.8 mEq/L (3.5-5.1); Sodium 142 mEq/L (136-145); eGFR For African Americans > 60 (> 60); eGFR For Non-African Americans > 60 (> 60)
[2020-02-29] MEDS: *HR* Heparin 5,000 UNIT/ML VIAL SQ SCH (05:39)
[2020-02-29] MEDS: Pantoprazole 40 MG VIAL IVP SCH (09:48)
[2020-02-29 11:21] VITALS: BP 112/68
[2020-02-29] MEDS ORDERED: FLU Vac QV 20-21 (6Month+)/PF 0.5 ML SYRINGE IM ONE (14:45)
== END 2020-02-29 15:08 | disposition home or self-care (01) | DRG 390 ==
LOC: 3ANU 13:37 → EMEROOARM 13:37 → SUATTDRO 16:36 → 3ANU 17:33 → SUATTDRO 02-28 12:40
PROVIDERS: ADMIT Internal Medicine; ATTEND Family Medicine

== ENCOUNTER 2020-07-06 15:49 | Inpatient (IN) ==
[2020-07-06] MEDS ORDERED: Ondansetron 4 MG/2 ML VIAL IVP ONE (16:10)
[2020-07-06] MEDS ORDERED: Morphine Sulfate 2 MG/ML SYRINGE IVP ONE (16:32)
[2020-07-06 17:07] LABS: Bilirubin,Urine Negative (Negative); Blood,Urine Negative (Negative); Clarity,Urine Clear (Clear); Color,Urine Light-Yellow (Yellow); Glucose,Urine (UA) Normal (Normal); Ketones,Urine 10 mg/dL (Negative); Leukocyte Esterase,Urine Negative (Negative); Nitrite,Urine Negative (Negative); Protein,Urine 70 mg/dL (Neg-Trace); Specific Gravity,Urine > 1.030 (1.010-1.025); Urobilinogen,Urine Normal (Normal); WBC,Urine 0-3 per hpf (0-3)
[2020-07-06 17:20] LABS: Basophils % 0.2 %; Eosinophils # 0.1 K/mcL (0.0-0.6); Eosinophils % 1.5 %; Hematocrit 37.1 % (37.5-50.1); Hemoglobin 12.2 g/dL (12.9-16.9); Immature Granulocytes % 0.3 % (0-4); Lymphocytes # 1.3 K/mcL (0.6-4.6); Lymphocytes % 14.6 %; Mean Corpuscular HGB Conc 32.9 g/dL (31.6-35.5); Mean Corpuscular Hemoglobin 31.4 pg (28.0-33.3); Mean Corpuscular Volume 95.4 fL (83.0-100.0); Monocytes # 0.7 K/mcL (0.0-1.3); Monocytes % 7.6 %; Neutrophils # 6.8 K/mcL (1.6-8.9); Platelet Count 203 K/mcL (140-400); Red Blood Count 3.89 M/mcL (4.19-5.50); Red Cell Distribution Width 12.5 % (11.5-14.5); Segmented Neutrophils % 75.8 %; White Blood Count 8.9 K/mcL (4.3-11.1)
[2020-07-06 17:25] LABS: INR 1.1; Prothrombin Time 12.4 Seconds (9.4-12.1)
[2020-07-06 17:37] LABS: Alanine Aminotransferase 12 Units/L (7-52); Albumin 3.6 g/dL (3.5-5.7); Albumin/Globulin Ratio 1.4 (1.1-2.2); Alkaline Phosphatase 46 Units/L (34-104); Aspartate Amino Transferase 13 Units/L (13-39); BUN/Creatinine Ratio 35 (6-26); Bilirubin,Direct 0.1 mg/dL (0.0-0.2); Bilirubin,Indirect 0.2 mg/dL (0.0-1.0); Bilirubin,Total 0.3 mg/dL (0.3-1.0); Blood Urea Nitrogen 31 mg/dL (8-23); Calcium 8.2 mg/dL (8.6-10.3); Carbon Dioxide 27 mEq/L (23-29); Chloride 101 mEq/L (98-107); Globulin 2.5 g/dL (2.4-3.5); Glucose 138 mg/dL (70-105); Lipase 34 Units/L (11-82); Osmolality,Calculated 291 (280-300); Potassium 3.8 mEq/L (3.5-5.1); Sodium 136 mEq/L (136-145); Total Protein 6.1 g/dL (6.4-8.9); Troponin I < 0.03 ng/mL (< 0.04); eGFR For African Americans > 60 (> 60); eGFR For Non-African Americans > 60 (> 60)
[2020-07-06] MEDS ORDERED: Naloxone 0.4 MG/ML INJ IVP PRN (19:19)
[2020-07-06] MEDS ORDERED: Ondansetron 4 MG/2 ML VIAL IVP PRN (19:19)
[2020-07-06] MEDS ORDERED: 0.9 % Sodium Chloride 1,000 ML IVC SCH (19:30)
[2020-07-06] MEDS ORDERED: D5% in Water 1,000 ML IVC PRN (19:37)
[2020-07-06] MEDS ORDERED: *HR* Dextrose 50 % in Water (Vial) 50 ML VIAL IVP PRN (19:37)
[2020-07-06] MEDS ORDERED: Dextrose Gel 15 GM/37.5 ML TUBE PO PRN ×2 (19:37)
[2020-07-07] MEDS: Insulin LISPRO 300 UNITS/3 ML VIAL SUBQ SCH ×4 (00:38→18:07)
[2020-07-07 04:04] LABS: Bilirubin,Urine Negative (Negative); Blood,Urine Negative (Negative); Clarity,Urine Clear (Clear); Color,Urine Light-Yellow (Yellow); Glucose,Urine (UA) Normal (Normal); Ketones,Urine 20 mg/dL (Negative); Leukocyte Esterase,Urine Negative (Negative); Nitrite,Urine Negative (Negative); PH,Urine 6.5 pH Units (5.0-8.0); Protein,Urine 50 mg/dL (Neg-Trace); Specific Gravity,Urine > 1.030 (1.010-1.025); Urobilinogen,Urine Normal (Normal); WBC,Urine 0-3 per hpf (0-3)
[2020-07-07 05:14] LABS: Hematocrit 33.7 % (37.5-50.1); Mean Corpuscular HGB Conc 32.6 g/dL (31.6-35.5); Mean Corpuscular Hemoglobin 30.9 pg (28.0-33.3); Mean Corpuscular Volume 94.7 fL (83.0-100.0); Mean Platelet Volume 9.9 fL (9.4-12.4); Platelet Count 192 K/mcL (140-400); Red Blood Count 3.56 M/mcL (4.19-5.50); Red Cell Distribution Width 12.4 % (11.5-14.5)
[2020-07-07] MEDS ORDERED: Chloraseptic Spray 177 ML BOTTLE MM PRN (05:23)
[2020-07-07 05:36] LABS: BUN/Creatinine Ratio 31 (6-26); Blood Urea Nitrogen 22 mg/dL (8-23); Calcium 7.7 mg/dL (8.6-10.3); Carbon Dioxide 24 mEq/L (23-29); Chloride 105 mEq/L (98-107); Glucose 98 mg/dL (70-105); Magnesium 2.1 mg/dL (1.6-2.6); Osmolality,Calculated 285 (280-300); Potassium 3.7 mEq/L (3.5-5.1); Sodium 136 mEq/L (136-145); eGFR For African Americans > 60 (> 60); eGFR For Non-African Americans > 60 (> 60)
[2020-07-07] MEDS: 0.9 % Sodium Chloride 1,000 ML IVC SCH (13:18)
[2020-07-08] MEDS: Insulin LISPRO 300 UNITS/3 ML VIAL SUBQ SCH ×4 (00:10→17:54)
[2020-07-08] MEDS: 0.9 % Sodium Chloride 1,000 ML IVC SCH (03:06)
[2020-07-08 06:09] LABS: Hematocrit 37.4 % (37.5-50.1); Hemoglobin 12.1 g/dL (12.9-16.9); Mean Corpuscular HGB Conc 32.4 g/dL (31.6-35.5); Mean Corpuscular Hemoglobin 30.9 pg (28.0-33.3); Mean Corpuscular Volume 95.4 fL (83.0-100.0); Platelet Count 229 K/mcL (140-400); Red Blood Count 3.92 M/mcL (4.19-5.50); Red Cell Distribution Width 12.5 % (11.5-14.5); White Blood Count 14.4 K/mcL (4.3-11.1)
[2020-07-08 06:30] LABS: BUN/Creatinine Ratio 23 (6-26); Blood Urea Nitrogen 20 mg/dL (8-23); Calcium 7.7 mg/dL (8.6-10.3); Carbon Dioxide 17 mEq/L (23-29); Chloride 104 mEq/L (98-107); Glucose 117 mg/dL (70-105); Osmolality,Calculated 286 (280-300); Potassium 4.1 mEq/L (3.5-5.1); Sodium 136 mEq/L (136-145); eGFR For African Americans > 60 (> 60); eGFR For Non-African Americans > 60 (> 60)
[2020-07-08] MEDS ORDERED: Isovue-370 500 ML BOTTLE IVP ONE (10:07)
[2020-07-08 11:00] LABS: ABG Base Excess -10 mEq/L (-2 to 3); ABG HCO3 16 mEq/L (21-27); ABG Oxygen Saturation 93 % (95-98); ABG PCO2 32 mmHg (35-45); ABG PO2 71 mmHg (85-104); ABG TCO2 17 mEq/L (20-26)
[2020-07-08 11:27] LABS: Adenovirus Not Detected (Not Detect); Bordetella Pertussis Not Detected (Not Detect); Chlamydophila pneumoniae Not Detected (Not Detect); Coronavirus 229E Not Detected (Not Detect); Coronavirus HKU1 Not Detected (Not Detect); Coronavirus NL63 Not Detected (Not Detect); Coronavirus OC43 Not Detected (Not Detect); Human Metapneumovirus Not Detected (Not Detect); Human Rhinovirus/Enterovirus Not Detected (Not Detect); Influenza A Subtype 2009 H1 Not Detected (Not Detect); Influenza B Not Detected (Not Detect); Mycoplasma pneumoniae Not Detected (Not Detect); Parainfluenza Virus 1 Not Detected (Not Detect); Parainfluenza Virus 2 Not Detected (Not Detect); Parainfluenza Virus 3 Not Detected (Not Detect); Parainfluenza Virus 4 Not Detected (Not Detect); Respiratory Syncytial Virus Not Detected (Not Detect); SARS-CoV-2 Not Detected (Not Detect)
[2020-07-08] MEDS ORDERED: Ipratropium/Albuterol Neb 3 ML IH PRN (12:01)
[2020-07-08] MEDS: Ampicillin/Sulbactam 3,000 MG in 0.9 % Sodium Chloride Mini Bag 100 ML IVPB SCH ×2 (15:43→20:46)
[2020-07-08] MEDS: *HR* Heparin 5,000 UNIT/ML VIAL SQ SCH (17:57)
[2020-07-09] MEDS: Insulin LISPRO 300 UNITS/3 ML VIAL SUBQ SCH ×4 (00:15→18:21)
[2020-07-09 01:56] LABS: Hematocrit 35.7 % (37.5-50.1); Hemoglobin 11.7 g/dL (12.9-16.9); Mean Corpuscular HGB Conc 32.8 g/dL (31.6-35.5); Mean Corpuscular Volume 94.7 fL (83.0-100.0); Mean Platelet Volume 9.7 fL (9.4-12.4); Platelet Count 230 K/mcL (140-400); Red Blood Count 3.77 M/mcL (4.19-5.50); Red Cell Distribution Width 12.7 % (11.5-14.5); White Blood Count 11.4 K/mcL (4.3-11.1)
[2020-07-09 02:17] LABS: BUN/Creatinine Ratio 23 (6-26); Blood Urea Nitrogen 19 mg/dL (8-23); Carbon Dioxide 19 mEq/L (23-29); Chloride 111 mEq/L (98-107); Glucose 143 mg/dL (70-105); Osmolality,Calculated 301 (280-300); Potassium 3.9 mEq/L (3.5-5.1); Sodium 143 mEq/L (136-145); eGFR For African Americans > 60 (> 60); eGFR For Non-African Americans > 60 (> 60)
[2020-07-09] MEDS: Ampicillin/Sulbactam 3,000 MG in 0.9 % Sodium Chloride Mini Bag 100 ML IVPB SCH ×4 (04:09→21:23)
[2020-07-09] MEDS: *HR* Heparin 5,000 UNIT/ML VIAL SQ SCH ×2 (06:37→18:24)
[2020-07-10] MEDS: Insulin LISPRO 300 UNITS/3 ML VIAL SUBQ SCH ×5 (00:15→17:39)
[2020-07-10] MEDS: Ampicillin/Sulbactam 3,000 MG in 0.9 % Sodium Chloride Mini Bag 100 ML IVPB SCH ×4 (03:38→20:06)
[2020-07-10] MEDS: *HR* Heparin 5,000 UNIT/ML VIAL SQ SCH ×2 (04:40→17:39)
[2020-07-10 04:47] LABS: Hematocrit 32.6 % (37.5-50.1); Hemoglobin 10.7 g/dL (12.9-16.9); Mean Corpuscular HGB Conc 32.8 g/dL (31.6-35.5); Mean Corpuscular Hemoglobin 31.3 pg (28.0-33.3); Mean Corpuscular Volume 95.3 fL (83.0-100.0); Mean Platelet Volume 9.7 fL (9.4-12.4); Platelet Count 230 K/mcL (140-400); Red Blood Count 3.42 M/mcL (4.19-5.50); Red Cell Distribution Width 13.1 % (11.5-14.5); White Blood Count 7.1 K/mcL (4.3-11.1)
[2020-07-10 05:04] LABS: BUN/Creatinine Ratio 26 (6-26); Blood Urea Nitrogen 18 mg/dL (8-23); Carbon Dioxide 24 mEq/L (23-29); Chloride 113 mEq/L (98-107); Glucose 116 mg/dL (70-105); Osmolality,Calculated 303 (280-300); Potassium 3.5 mEq/L (3.5-5.1); Sodium 145 mEq/L (136-145); eGFR For African Americans > 60 (> 60); eGFR For Non-African Americans > 60 (> 60)
[2020-07-10] MEDS ORDERED: Perflutren Lipid Microsphere 1.3 ML in 0.9 % Sodium Chloride 8.7 ML IVP PRN (12:54)
[2020-07-10] MEDS: Aspirin Enteric Coated 81 MG Tablet PO SCH (14:52)
[2020-07-10] MEDS ORDERED: Insulin LISPRO 300 UNITS/3 ML VIAL SUBQ SCH (21:00)
[2020-07-11] MEDS: Ampicillin/Sulbactam 3,000 MG in 0.9 % Sodium Chloride Mini Bag 100 ML IVPB SCH ×2 (02:44→08:44)
[2020-07-11 04:10] LABS: Basophils % 0.3 %; Eosinophils # 0.2 K/mcL (0.0-0.6); Hematocrit 32.6 % (37.5-50.1); Hemoglobin 10.6 g/dL (12.9-16.9); Immature Granulocytes % 0.8 % (0-4); Lymphocytes # 1.3 K/mcL (0.6-4.6); Lymphocytes % 17.9 %; Mean Corpuscular HGB Conc 32.5 g/dL (31.6-35.5); Mean Corpuscular Hemoglobin 30.8 pg (28.0-33.3); Mean Corpuscular Volume 94.8 fL (83.0-100.0); Mean Platelet Volume 9.8 fL (9.4-12.4); Monocytes # 0.4 K/mcL (0.0-1.3); Monocytes % 5.6 %; Neutrophils # 5.3 K/mcL (1.6-8.9); Platelet Count 230 K/mcL (140-400); Red Blood Count 3.44 M/mcL (4.19-5.50); Segmented Neutrophils % 72.4 %; White Blood Count 7.3 K/mcL (4.3-11.1)
[2020-07-11 04:14] LABS: BUN/Creatinine Ratio 29 (6-26); Blood Urea Nitrogen 16 mg/dL (8-23); Calcium 8.4 mg/dL (8.6-10.3); Carbon Dioxide 27 mEq/L (23-29); Chloride 107 mEq/L (98-107); Glucose 157 mg/dL (70-105); Osmolality,Calculated 300 (280-300); Sodium 143 mEq/L (136-145); eGFR For African Americans > 60 (> 60); eGFR For Non-African Americans > 60 (> 60)
[2020-07-11] MEDS: *HR* Heparin 5,000 UNIT/ML VIAL SQ SCH (06:20)
[2020-07-11] MEDS: Insulin LISPRO 300 UNITS/3 ML VIAL SUBQ SCH ×2 (08:38→12:16)
[2020-07-11] MEDS: Aspirin Enteric Coated 81 MG Tablet PO SCH (08:43)
[2020-07-11] MEDS ORDERED: Potassium Chloride 40 MEQ, Lidocaine 1% 2 ML in 0.9 % Sodium Chloride 500 ML IVPB ONE (11:00)
[2020-07-11 13:54] VITALS: BP 117/71
== END 2020-07-11 16:40 | disposition home or self-care (01) | DRG 388 ==
LOC: EMEROOARM 15:49 → 3ANU 15:49 → SUATTDRO 19:09 → 3ANU 20:00 → SUATTDRO 07-07 15:49
PROVIDERS: ADMIT Student in an Organized Health Care Education/Training Program; ATTEND Internal Medicine

== ENCOUNTER 2021-04-30 06:12 | Inpatient (IN) ==
[2021-04-30] MEDS ORDERED: CeFAZolin Syr 2,000MG/20 ML 2,000 MG/20 ML SYRINGE IVPB ONE (06:28)
[2021-04-30] MEDS ORDERED: Ringers Solution, Lactated 1,000 ML IVC SCH ×2 (06:30→07:00)
[2021-04-30] MEDS ORDERED: Heparin 1,000 UNITS/500 mL 1,000 ML ONE (06:43)
[2021-04-30] MEDS ORDERED: *HR* FentaNYL (PF) 100 MCG/2 ML VIAL IVP PRN (06:51)
[2021-04-30] MEDS ORDERED: *HR* OxyCODONE Immed Rel 5 MG TABLET PO PRN (06:51)
[2021-04-30] MEDS ORDERED: Ondansetron 4 MG/2 ML VIAL IVP PRN (06:51)
[2021-04-30] MEDS ORDERED: Heparin 1,000 UNITS/500 mL 0 ML ONE (07:16)
[2021-04-30] MEDS ORDERED: Lidocaine HCL 4 ML Topical Solution (Laryng-O-Jet Kit Sterile Pak) TP ONE (07:18)
[2021-04-30] MEDS ORDERED: *HR* Propofol 200 MG/20 ML VIAL IVP ONE (07:29)
[2021-04-30] MEDS ORDERED: Lidocaine -MPF 2% 5 ML VIAL ONE (07:29)
[2021-04-30] MEDS ORDERED: *HR* Succinylcholine 200 MG/10 ML VIAL IVP ONE (07:29)
[2021-04-30] MEDS ORDERED: *HR* Rocuronium Bromide 50 MG/5 ML VIAL ONE (07:29)
[2021-04-30] MEDS ORDERED: Ondansetron 4 MG/2 ML VIAL ONE (07:29)
[2021-04-30] MEDS ORDERED: *HR* FentaNYL (PF) 100 MCG/2 ML VIAL ONE (07:34)
[2021-04-30] MEDS ORDERED: *HR* Heparin 5,000 UNIT/ML VIAL ONE ×2 (07:35→07:36)
[2021-04-30] MEDS ORDERED: *HR* Phenylephrine 10 MG/ML VIAL ONE (07:38)
[2021-04-30] MEDS ORDERED: Acetaminophen IV 1,000 MG/100 ML BAG IVPB ONE (07:42)
[2021-04-30] MEDS ORDERED: Heparin 1,000 UNITS/500 mL 500 ML ONE (08:12)
[2021-04-30] MEDS ORDERED: EPHEDrine 50 MG/ML VIAL ONE (09:19)
[2021-04-30] MEDS ORDERED: Sugammadex Sodium 200 MG/2 ML VIAL IV ONE (10:13)
[2021-04-30] MEDS ORDERED: *HR* HYDROcodone/Acet 5/325 mg TABLET PO PRN (13:25)
[2021-04-30] MEDS ORDERED: Artificial Tears SOLN 15 ML BOTTLE BOTH EYES PRN (13:25)
[2021-04-30] MEDS ORDERED: Naloxone 0.4 MG/ML INJ IVP PRN (13:25)
[2021-04-30] MEDS ORDERED: Acetaminophen 325 MG TABLET PO PRN (13:25)
[2021-04-30] MEDS ORDERED: methocarbamoL 500 MG TABLET PO PRN (13:25)
[2021-04-30] MEDS: CeFAZolin 2 GM/120 ML BAG IVPB SCH (15:34)
[2021-04-30] MEDS: GlipiZIDE 5 MG TABLET PO SCH (18:40)
[2021-05-01] MEDS: CeFAZolin 2 GM/120 ML BAG IVPB SCH (00:58)
[2021-05-01 06:13] LABS: BUN/Creatinine Ratio 17 (6-26); Blood Urea Nitrogen 17 mg/dL (8-23); Calcium 8.7 mg/dL (8.6-10.3); Carbon Dioxide 28 mEq/L (23-29); Chloride 102 mEq/L (98-107); Glucose 117 mg/dL (70-105); Osmolality,Calculated 287 (280-300); Potassium 4.1 mEq/L (3.5-5.1); Sodium 137 mEq/L (136-145); eGFR For African Americans > 60 (> 60); eGFR For Non-African Americans > 60 (> 60)
[2021-05-01 07:30] VITALS: BP 111/70; PULSE 58; TEMP 98.5; O2SAT 98
[2021-05-01] MEDS: GlipiZIDE 5 MG TABLET PO SCH (08:30)
[2021-05-01] MEDS ORDERED: hydroCHLOROthiazide 25 MG TABLET PO SCH (09:00)
[2021-05-01] MEDS ORDERED: Aspirin Enteric Coated 81 MG Tablet PO SCH (09:00)
[2021-05-01] MEDS ORDERED: lisinopriL 20 MG TABLET PO SCH (09:00)
== END 2021-05-01 10:25 | disposition home or self-care (01) | DRG 254 ==
LOC: SAMDAY 06:12 → 2NNU 13:28
PROVIDERS: ADMIT Surgery Vascular Surgery; ATTEND Surgery Vascular Surgery

== ENCOUNTER 2021-08-18 15:56 | Inpatient (IN) ==
[2021-08-18 16:26] LABS: Basophils % 0.3 %; Eosinophils # 0.2 K/mcL (0.0-0.6); Eosinophils % 2.1 %; Hematocrit 39.8 % (37.5-50.1); Hemoglobin 13.6 g/dL (12.9-16.9); Immature Granulocytes % 0.4 % (0-4); Lymphocytes # 2.6 K/mcL (0.6-4.6); Lymphocytes % 25.2 %; Mean Corpuscular HGB Conc 34.2 g/dL (31.6-35.5); Mean Corpuscular Hemoglobin 31.9 pg (28.0-33.3); Mean Corpuscular Volume 93.2 fL (83.0-100.0); Mean Platelet Volume 9.8 fL (9.4-12.4); Monocytes # 0.9 K/mcL (0.0-1.3); Neutrophils # 6.5 K/mcL (1.6-8.9); Platelet Count 158 K/mcL (140-400); Red Blood Count 4.27 M/mcL (4.19-5.50); Red Cell Distribution Width 11.9 % (11.5-14.5); White Blood Count 10.3 K/mcL (4.3-11.1)
[2021-08-18 16:49] LABS: Alanine Aminotransferase 10 Units/L (7-52); Albumin 4.2 g/dL (3.5-5.7); Albumin/Globulin Ratio 1.9 (1.1-2.2); Alkaline Phosphatase 52 Units/L (34-104); Aspartate Amino Transferase 16 Units/L (13-39); BUN/Creatinine Ratio 15 (6-26); Bilirubin,Direct 0.1 mg/dL (0.0-0.2); Bilirubin,Indirect 0.4 mg/dL (0.0-1.0); Bilirubin,Total 0.5 mg/dL (0.3-1.0); Blood Urea Nitrogen 16 mg/dL (8-23); Carbon Dioxide 28 mEq/L (23-29); Chloride 96 mEq/L (98-107); Globulin 2.2 g/dL (2.4-3.5); Glucose 95 mg/dL (70-105); Magnesium 1.2 mg/dL (1.6-2.6); Osmolality,Calculated 275 (280-300); Potassium 3.9 mEq/L (3.5-5.1); Sodium 132 mEq/L (136-145); Total Protein 6.4 g/dL (6.4-8.9); eGFR For African Americans > 60 (> 60); eGFR For Non-African Americans > 60 (> 60)
[2021-08-18 16:56] LABS: Troponin I < 0.03 ng/mL (< 0.04)
[2021-08-18] MEDS ORDERED: 0.9 % Sodium Chloride 500 ML IVC ONE (18:31)
[2021-08-18 20:09] LABS: Creatine Kinase 144 Units/L (30-223); Ethanol < 10 mg/dL (Less than 10)
[2021-08-18] MEDS ORDERED: Naloxone 0.4 MG/ML INJ IVP PRN (22:39)
[2021-08-18] MEDS ORDERED: Melatonin 3 MG TABLET PO PRN (22:39)
[2021-08-18] MEDS ORDERED: *HR* Dextrose 50 % in Water (Syg) 50 ML SYRINGE IVP PRN (22:51)
[2021-08-18] MEDS ORDERED: Dextrose 4 GM Chewable Tablets PO PRN ×2 (22:51)
[2021-08-18] MEDS ORDERED: D5% in Water 1,000 ML IVC PRN (22:51)
[2021-08-18] MEDS: Insulin LISPRO 300 UNITS/3 ML VIAL SUBQ SCH (23:22)
[2021-08-18] MEDS ORDERED: Isovue-370 500 ML BOTTLE IVP ONE (23:35)
[2021-08-18] MEDS ORDERED: 0.9 % Sodium Chloride 1,000 ML IVC SCH (23:45)
[2021-08-19 02:39] LABS: Influenza A PCR Negative (Negative); Influenza B PCR Negative (Negative); Resp. Syncytial Virus PCR Negative (Negative)
[2021-08-19 02:46] LABS: SARS-CoV-2 by PCR (In House) Negative (Negative)
[2021-08-19] MEDS: cefTRIAXone 1,000 MG in 0.9 % Sodium Chloride 10 ML IVP SCH (03:21)
[2021-08-19 03:29] LABS: Hematocrit 38.1 % (37.5-50.1); Hemoglobin 13.3 g/dL (12.9-16.9); Mean Corpuscular HGB Conc 34.9 g/dL (31.6-35.5); Mean Corpuscular Volume 94.5 fL (83.0-100.0); Mean Platelet Volume 10.1 fL (9.4-12.4); Platelet Count 156 K/mcL (140-400); Red Blood Count 4.03 M/mcL (4.19-5.50); Red Cell Distribution Width 11.6 % (11.5-14.5); White Blood Count 11.9 K/mcL (4.3-11.1)
[2021-08-19 03:48] LABS: BUN/Creatinine Ratio 14 (6-26); Blood Urea Nitrogen 15 mg/dL (8-23); Calcium 8.8 mg/dL (8.6-10.3); Carbon Dioxide 25 mEq/L (23-29); Chloride 95 mEq/L (98-107); Glucose 172 mg/dL (70-105); Magnesium 1.7 mg/dL (1.6-2.6); Osmolality,Calculated 279 (280-300); Phosphorous 3.3 mg/dL (2.7-4.5); Potassium 3.9 mEq/L (3.5-5.1); Sodium 132 mEq/L (136-145); eGFR For African Americans > 60 (> 60); eGFR For Non-African Americans > 60 (> 60)
[2021-08-19] MEDS: Insulin LISPRO 300 UNITS/3 ML VIAL SUBQ SCH ×4 (05:56→20:19)
[2021-08-19] MEDS ORDERED: 0.9 % Sodium Chloride 1,000 ML IVC SCH (10:15)
[2021-08-19 12:52] LABS: Amphetamine Screen,Urine Negative ng/mL (Cutoff=1000); Barbiturate Screen,Urine Negative ng/mL (Cutoff=200); Benzodiazepines Screen,Urine Negative ng/mL (Cutoff=200); Bilirubin,Urine Negative (Negative); Blood,Urine Large (Negative); Cannabinoid Screen,Urine Negative ng/mL (Cutoff = 50); Clarity,Urine Clear (Clear); Cocaine Screen,Urine Negative ng/mL (Cutoff= 300); Color,Urine Light-Yellow (Yellow); Glucose,Urine (UA) Normal (Normal); Ketones,Urine Trace mg/dL (Negative); Leukocyte Esterase,Urine Negative (Negative); Nitrite,Urine Negative (Negative); Opiate Screen,Urine Negative ng/mL (Cutoff=300); Phencyclidine Screen,Urine Negative ng/mL (Cutoff=25); Protein,Urine 30 mg/dL (Neg-Trace); RBC,Urine TNTC per hpf (0-3); Urobilinogen,Urine Normal (Normal)
[2021-08-20 03:14] LABS: Basophils % 0.5 %; Eosinophils # 0.3 K/mcL (0.0-0.6); Eosinophils % 3.9 %; Hematocrit 33.5 % (37.5-50.1); Immature Granulocytes % 0.3 % (0-4); Lymphocytes # 1.9 K/mcL (0.6-4.6); Lymphocytes % 29.3 %; Mean Corpuscular Hemoglobin 31.9 pg (28.0-33.3); Mean Corpuscular Volume 93.8 fL (83.0-100.0); Mean Platelet Volume 10.6 fL (9.4-12.4); Monocytes # 0.6 K/mcL (0.0-1.3); Monocytes % 9.2 %; Neutrophils # 3.8 K/mcL (1.6-8.9); Platelet Count 138 K/mcL (140-400); Red Blood Count 3.57 M/mcL (4.19-5.50); Red Cell Distribution Width 11.7 % (11.5-14.5); Segmented Neutrophils % 56.8 %; White Blood Count 6.6 K/mcL (4.3-11.1)
[2021-08-20 03:16] LABS: Hemoglobin 11.4 g/dL (12.9-16.9)
[2021-08-20 03:32] LABS: BUN/Creatinine Ratio 16 (6-26); Blood Urea Nitrogen 14 mg/dL (8-23); Calcium 8.3 mg/dL (8.6-10.3); Carbon Dioxide 27 mEq/L (23-29); Chloride 102 mEq/L (98-107); Glucose 92 mg/dL (70-105); Magnesium 1.5 mg/dL (1.6-2.6); Osmolality,Calculated 282 (280-300); Phosphorous 2.7 mg/dL (2.7-4.5); Potassium 3.7 mEq/L (3.5-5.1); Sodium 136 mEq/L (136-145); eGFR For African Americans > 60 (> 60); eGFR For Non-African Americans > 60 (> 60)
[2021-08-20] MEDS: Insulin LISPRO 300 UNITS/3 ML VIAL SUBQ SCH ×4 (08:04→20:26)
[2021-08-20] MEDS: cefTRIAXone 1,000 MG in 0.9 % Sodium Chloride 10 ML IVP SCH (08:10)
[2021-08-21] MEDS: cefTRIAXone 1,000 MG in 0.9 % Sodium Chloride 10 ML IVP SCH (08:17)
[2021-08-21] MEDS: Insulin LISPRO 300 UNITS/3 ML VIAL SUBQ SCH ×2 (08:22→12:05)
[2021-08-21 10:57] VITALS: BP 173/76; PULSE 67; TEMP 98.3; O2SAT 94
== END 2021-08-21 14:32 | disposition home health service (06) | DRG 689 ==
LOC: EMEROOARM 15:56 → 3BNU 15:56 → SUATTDRO 21:55 → 3BNU 22:31
PROVIDERS: ADMIT Student in an Organized Health Care Education/Training Program; ATTEND Internal Medicine